=== PATIENT | female | born 1960 | race Caucasian/White ===

== ENCOUNTER → 2017-09-21 08:43 | Outpatient (CLI) | payer OTHER, SELFPAY ==
--- NOTE | 2017-09-21 08:59 | CT_ITS ---
STUDY: CT ABDOMEN AND PELVIS WITH CONTRAST REASON FOR EXAM: Female, 57 years old. Left lower quadrant pain. RADIATION DOSAGE (If Supplied By Facility): CTDIvol = ( 10.07 ) mGy, DLP = ( 417.20 ) mGycm TECHNIQUE: Transaxial images were obtained from the dome of the diaphragm to the symphysis pubis with oral contrast. 100ml ml of Isovue 300 contrast was administered. Sagittal and coronal images were reconstructed. Individualized dose optimization techniques were used for this CT. COMPARISON: None. FINDINGS: The visualized lung bases are unremarkable. The visualized portions of the heart are within normal limits. There is a 9.3 mm x 8.9 mm cyst in the anterior aspect of the right lobe of the liver. Normal gallbladder and extrahepatic biliary system. There is a 1.6 cm x 1.7 cm cystic nodule in the upper aspect of the spleen. Normal pancreas. Normal bilateral adrenal glands. 1 cm cyst in the lower pole of the right and left kidneys. There is a small hiatal hernia. Normal small intestine. There is diverticulosis, with thickening of the colon wall, and pericolonic inflammation changes consistent with acute diverticulitis. The appendix is visualized and appears normal. Normal abdominal aorta. Normal inferior vena cava. Normal retroperitoneum. Normal urinary bladder. Small bilateral benign-appearing inguinal lymph nodes. There is a small umbilical hernia containing fat. There are degenerative changes of the visualized lumbar spine. Levoscoliosis. CT/Abdomen/Pelvis WITH Contrast IMPRESSION: Mild degree of noncomplicated sigmoid diverticulitis. Hepatic and splenic cysts. Small cysts in the lower pole of the kidneys. Electronically Signed: German Martinez MD at 9:58 EDT Tel [phone], Service support ,
== END ==
PROVIDERS: Family Provider Family Medicine; PCP Family Medicine; Visit Provider Family Medicine
DX: K57.32 Diverticulitis of large intestine without perforation or abscess without bleeding (principal); K76.89 Other specified diseases of liver; D73.4 Cyst of spleen; N28.1 Cyst of kidney, acquired
CPT/HCPCS: 74177; Q9967

== ENCOUNTER → 2018-02-17 14:36 | Outpatient (CLI) | payer OTHER, SELFPAY ==
[2018-02-17 15:31] LABS: ALB/GLOB Ratio 1.1 RATIO (0.9-2.4); AST(SGOT) 32 U/L (15-37); Alanine Aminotransfer ALT/SGPT 52 U/L (13-56); Albumin, Serum 3.9 g/dL (3.2-5.0); Alkaline Phosphatase 97 U/L (45-117); Anion Gap 10 (5-15); BUN 16 mg/dL (7-18); BUN/Creat Ratio 18.9 RATIO (10-20); Chloride 106 mmol/L (98-107); Cholesterol 276 mg/dL (200); Creatinine, Serum 0.85 mg/dL (0.55-1.02); EST Glomerular Filtration Rate 74 mL/min (>60); Est Glom Filt Rate - Afr Amer 90 mL/min (>60); Globulin 3.6 g/dL (2.2-4.2); Glucose 83 mg/dL (74-106); High Density Lipoprotein 70 mg/dL; Magnesium 2.3 mg/dL (1.6-2.6); Potassium 4.2 mmol/L (3.5-5.1); Protein, Total 7.5 g/dL (6.4-8.2); Sodium Level 142 mmol/L (136-145); Thyroid Stim Hormone (TSH) 1.78 uIU/mL (0.358-3.74); Triglycerides 121 mg/dL; Very Low Density Lipoprotein 24 mg/dL (5-40)
[2018-02-17 15:37] LABS: Microalbumin,Random Urine 12.5 mg/L (NO RANGE EST.)
== END ==
PROVIDERS: Visit Provider Family Medicine
DX: E78.00 Pure hypercholesterolemia, unspecified (principal); I10 Essential (primary) hypertension
CPT/HCPCS: 36415; 80053; 80061; 82043; 82570; 83735; 84443

== ENCOUNTER 2018-04-28 08:36 | Day surgery (SDC) | payer OTHER, SELFPAY ==
[2018-04-28] VITALS (10 sets, daily range): BP systolic 127–177; BP diastolic 83–116; PULSE 81–99; RESP 16–18; TEMP 36.2–37.2; O2SAT 99–100; BMI 24.1
--- NOTE | 2018-04-28 09:39 | PCM.HP.STD ---
Problem List (1) Screening for intestinal cancer Status: Acute History of Present Illness Date of Admission: 04/28/18 The patient is a 58 year old F who presents for screening colonoscopy. Family history is notable for grandparent with colon cancer. She has had a personal history of colon polyps. Her most recent colonoscopy was 5 years ago. She did have about this past summer of severe left lower quadrant abdominal pain which was diagnosed as acute sigmoid diverticulitis and was treated with oral antibiotics. She currently denies bright red blood per rectum or melena. She otherwise is enjoying good health. Past Medical History Allergies adhesive tape Allergy (Verified 04/25/18 11:43) Rash Home Medications: Ambulatory Orders Medication Instructions Recorded Aspirin E.C. [Ecotrin] 81 mg PO DAILY@0800 04/25/18 Doxycycline 100 mg PO DAILY 04/25/18 Levothyroxine [Synthroid] 125 mcg PO DAILY 04/25/18 Magnesium Oxide [Magnesium] 800 mg PO DAILY 04/25/18 Spironolactone [Aldactone] 25 mg PO TID 04/25/18 Ranitidine [Zantac] 150 mg PO DAILY 04/28/18 Smoking Status: Never smoker Tobacco Use: Non-smoker Review of Systems Constitutional: Denies: Anorexia HEENT: Denies: Difficulty Swallowing Cardiovascular: Denies: Chest Pain Respiratory: Denies: Cough Gastrointestinal: Denies: Abdominal Pain Endocrine: Denies: Change in Body Habitus VTE Information - Inpt Only VTE Present on Admission: No Patient Problems: Active and Suspected Problems Screening for intestinal cancer (Acute) - Physical Exam General: Alert, Oriented x3, Cooperative Oral: Moist Mucosa Lungs: Clear to auscultation Cardiovascular: Regular rate, Regular Rhythm Abdomen: Bowel Sounds Present, Soft, Non Tender Musculoskeletal: No Tenderness to Palpation of Joints or Extremities Psych/Mental Status: Normal Affect Vital Signs Temp Pulse Resp BP Pulse Ox 98.9 F 81 16 138/90 H 100 04/28/18 09:11 04/28/18 09:11 04/28/18 09:11 04/28/18 09:11 04/28/18 09:11 Oxygen Delivery Method Room Air Weight: 132 lb Body Mass Index (BMI) 24.1 Assessment/Plan All Active Problems Screening for intestinal cancer (Acute) I am recommending to the patient a colonoscopy with possible biopsy or polypectomy as indicated. She is aware of the technique, benefits, risks, alternatives. She has had an opportunity to ask and have questions answered. She presents via open access. We will proceed as noted. Carlton Rebolledo M.D., F.A.C.S.
--- NOTE | 2018-04-28 10:06 | OP.ENDO_ITS ---
Patient Name: David Yanes Procedure Date: 04/28/2018 9:33 AM Date of : 1960 Age: 58 Procedure: Colonoscopy Indications: High risk colon cancer surveillance: Personal history of colonic polyps Providers: Carlton Rebolledo MD Referring MD: Carlton Rebolledo MD Medicines: Midazolam 3 mg IV, Meperidine 100 mg IV Patient Profile: Last Colonoscopy: 5 years ago. Complications: No immediate complications. Procedure: Pre-Anesthesia Assessment: - Prior to the procedure, a History and Physical was performed, and patient medications and allergies were reviewed. The patient's tolerance of previous anesthesia was also reviewed. The risks and benefits of the procedure and the sedation options and risks were discussed with the patient. All questions were answered, and informed consent was obtained. Prior Anticoagulants: The patient has taken no previous anticoagulant or antiplatelet agents. ASA Grade Assessment: II - A patient with mild systemic disease. After reviewing the risks and benefits, the patient was deemed in satisfactory condition to undergo the procedure. After I obtained informed consent, the scope was passed under direct vision. Throughout the procedure, the patient's blood pressure, pulse, and oxygen saturations were monitored continuously. The colonoscope was introduced through the anus and advanced to the cecum, identified by appendiceal orifice and ileocecal valve. The colonoscopy was performed without difficulty. The patient tolerated the procedure well. The quality of the bowel preparation was good. The ileocecal valve was photographed. Moderate Sedation: Moderate (conscious) sedation was personally administered by the endoscopist. The following parameters were monitored: oxygen saturation, heart rate, blood pressure, and response to care. Total physician intraservice time was 15 minutes. Scope In: 9:47:24 AM Scope Withdrawal Time 0 hours 9 minutes 21 seconds Scope Out: 10:01:38 AM Total Procedure Duration Time 0 hours 14 minutes 14 seconds Findings: Hemorrhoids were found on perianal exam. Many diverticula were found in the sigmoid colon and descending colon. The exam was otherwise without abnormality. Impression: - Hemorrhoids found on perianal exam. - Diverticulosis in the sigmoid colon and in the descending colon. - The examination was otherwise normal. - No specimens collected. Recommendation: - Discharge patient to home. - Resume previous diet. - Repeat colonoscopy in 5 years for surveillance. - Continue present medications. Procedure Code(s): --- Professional --- 42323, Colonoscopy, flexible; diagnostic, including collection of specimen(s) by brushing or washing, when performed (separate procedure) 78997, 59, Moderate sedation services provided by the same physician or other qualified health chronic care nurse performing the diagnostic or therapeutic service that the sedation supports, requiring the presence of an independent trained observer to assist in the monitoring of the patient's level of consciousness and physiological status; initial 15 minutes of intraservice time, patient age 5 years or older Diagnosis Code(s): --- Professional --- Z86.010, Personal history of colonic polyps K64.9, Unspecified hemorrhoids K57.30, Diverticulosis of large intestine without perforation or abscess without bleeding CPT copyright 2017 [employer]. All rights reserved. The codes documented in this report are preliminary and upon code and test clerk review may be revised to meet current compliance requirements. Carlton Rebolledo MD 04/28/2018 10:06:12 AM This report has been signed electronically. Number of Addenda: 0 Note Initiated On: 04/28/2018 9:33 AM
== END 2018-04-28 11:20 | disposition home or self-care (01) ==
LOC: EN 08:37 → AC 08:37
PROVIDERS: Family Provider Family Medicine; PCP Family Medicine; Referring Provider Surgery; Visit Provider Surgery
PROC: 0DJD8ZZ Inspection of Lower Intestinal Tract, Via Natural or Artificial Opening Endoscopic (ICD-10-PCS; CPT 45378; principal; 2018-04-28 09:40)
DX: Z12.11 Encounter for screening for malignant neoplasm of colon (principal); Z86.010 Personal history of colon polyps; K64.9 Unspecified hemorrhoids; K57.30 Diverticulosis of large intestine without perforation or abscess without bleeding
CPT/HCPCS: 45378; 99152; 99153; J7120

== ENCOUNTER → 2019-04-02 17:47 | Outpatient (CLI) | payer OTHER, SELFPAY ==
[2018-04-28 09:11] VITALS: BMI 24.1
== END ==
PROVIDERS: Family Provider Family Medicine; PCP Family Medicine; Referring Provider Family Medicine; Visit Provider Family Medicine
DX: R05 Cough (principal)
CPT/HCPCS: 87633

== ENCOUNTER → 2019-04-03 12:01 | Outpatient (CLI) | payer OTHER, SELFPAY ==
[2018-04-28 09:11] VITALS: BMI 24.1
== END ==
PROVIDERS: Family Provider Family Medicine; PCP Family Medicine; Referring Provider Family Medicine; Visit Provider Family Medicine
DX: R05 Cough (principal)
CPT/HCPCS: 87633

== ENCOUNTER → 2019-04-17 11:33 | Outpatient (CLI) | payer OTHER, SELFPAY ==
[2018-04-28 09:11] VITALS: BMI 24.1
[2019-04-17 13:58] LABS: Microalbumin,Random Urine 13.4 mg/L (NO RANGE EST.)
[2019-04-17 14:01] LABS: ALB/GLOB Ratio 0.8 RATIO (0.9-2.4); AST(SGOT) 24 U/L (15-37); Alanine Aminotransfer ALT/SGPT 43 U/L (13-56); Albumin, Serum 3.4 g/dL (3.2-5.0); Alkaline Phosphatase 93 U/L (45-117); Anion Gap 4 (5-15); BUN 14 mg/dL (7-18); BUN/Creat Ratio 17.6 RATIO (10-20); Calcium,Total 9.2 mg/dL (8.5-10.1); Chloride 107 mmol/L (98-107); Cholesterol 232 mg/dL (200); Creatinine, Serum 0.79 mg/dL (0.55-1.02); EST Glomerular Filtration Rate 79 mL/min (>60); Est Glom Filt Rate - Afr Amer 96 mL/min (>60); Globulin 4.4 g/dL (2.2-4.2); Glucose 94 mg/dL (74-106); High Density Lipoprotein 58 mg/dL; Potassium 4.1 mmol/L (3.5-5.1); Protein, Total 7.8 g/dL (6.4-8.2); Sodium Level 138 mmol/L (136-145); T4 Free Direct 1.43 ng/dL (0.76-1.46); Thyroid Stim Hormone (TSH) 0.82 uIU/mL (0.358-3.74); Triglycerides 197 mg/dL; Very Low Density Lipoprotein 39 mg/dL (5-40)
== END ==
PROVIDERS: Family Provider Family Medicine; PCP Family Medicine; Referring Provider Family Medicine; Visit Provider Family Medicine
DX: I10 Essential (primary) hypertension (principal); E03.9 Hypothyroidism, unspecified; E78.00 Pure hypercholesterolemia, unspecified
CPT/HCPCS: 36415; 80053; 80061; 82043; 82570; 84439; 84443

== ENCOUNTER → 2019-04-20 16:22 | Outpatient (CLI) | payer OTHER, SELFPAY ==
[2018-04-28 09:11] VITALS: BMI 24.1
--- NOTE | 2019-04-20 16:30 | RAD_ITS ---
STUDY: X-RAY CHEST REASON FOR EXAM: Female, 59 years old. Cough TECHNIQUE: Frontal and lateral views of the chest. COMPARISON: None. FINDINGS: The lungs are clear and expanded. There is no demonstrated pleural abnormality. Normal size heart. Normal mediastinum and christy. Normal visualized pulmonary arteries. Normal visualized aortic arch and descending thoracic aorta. Normal visualized thoracic spine. Normal visualized ribs, clavicles, and shoulders. There is no demonstrated abnormality of the visualized soft tissue structures of the upper abdomen. RAD/Chest PA and Lateral IMPRESSION: Normal x-ray examination of the chest. Electronically Signed: Keaton De León MD at 23:54 EST , Service support ,
== END ==
PROVIDERS: PCP Family Medicine; Referring Provider Family Medicine; Visit Provider Family Medicine
DX: R05 Cough (principal)
CPT/HCPCS: 71046

== ENCOUNTER → 2020-02-01 15:24 | Outpatient (CLI) | payer OTHER, SELFPAY ==
[2018-04-28 09:11] VITALS: BMI 24.1
== END ==
PROVIDERS: PCP Family Medicine; Referring Provider Family Medicine; Visit Provider Registered Nurse
DX: R30.0 Dysuria (principal)
CPT/HCPCS: 87077; 87086; 87088; 87186

== ENCOUNTER → 2020-03-13 14:53 | Outpatient (CLI) | payer OTHER, SELFPAY ==
[2018-04-28 09:11] VITALS: BMI 24.1
[2020-03-13 17:52] LABS: Microalbumin:Creatinine Ratio 4.4 mg/g CRE (<30 mg/g CRE)
[2020-03-13 17:54] LABS: Vitamin D,25 Hydroxy 26.4 ng/mL
[2020-03-13 18:08] LABS: ALB/GLOB Ratio 0.9 RATIO (0.9-2.4); AST(SGOT) 30 U/L (15-37); Alanine Aminotransfer ALT/SGPT 46 U/L (13-56); Albumin, Serum 3.8 g/dL (3.2-5.0); Alkaline Phosphatase 111 U/L (45-117); Anion Gap 6 (5-15); BUN 19 mg/dL (7-18); BUN/Creat Ratio 21.6 RATIO (10-20); Calcium,Total 9.1 mg/dL (8.5-10.1); Chloride 103 mmol/L (98-107); Creatinine, Serum 0.88 mg/dL (0.55-1.02); EST Glomerular Filtration Rate 70 mL/min (>60); Est Glom Filt Rate - Afr Amer 85 mL/min (>60); Globulin 4.2 g/dL (2.2-4.2); Glucose 90 mg/dL (74-106); Magnesium 2.2 mg/dL (1.6-2.6); Potassium 3.9 mmol/L (3.5-5.1); Sodium Level 137 mmol/L (136-145); Thyroid Stim Hormone (TSH) 2.31 uIU/mL (0.358-3.74)
== END ==
PROVIDERS: PCP Family Medicine; Referring Provider Family Medicine; Visit Provider Family Medicine
DX: I10 Essential (primary) hypertension (principal); E03.9 Hypothyroidism, unspecified; E26.09 Other primary hyperaldosteronism
CPT/HCPCS: 36415; 80053; 82043; 82306; 82570; 83735; 84443

== ENCOUNTER → 2020-08-27 10:31 | Outpatient (CLI) | payer OTHER, SELFPAY ==
[2018-04-28 09:11] VITALS: BMI 24.1
[2020-08-27 12:34] LABS: Anion Gap 2 (5-15); BUN 14 mg/dL (7-18); BUN/Creat Ratio 16.7 RATIO (10-20); Calcium,Total 9.1 mg/dL (8.5-10.1); Chloride 107 mmol/L (98-107); Creatinine, Serum 0.84 mg/dL (0.55-1.02); EST Glomerular Filtration Rate 74 mL/min (>60); Est Glom Filt Rate - Afr Amer 89 mL/min (>60); Glucose 94 mg/dL (74-106); Magnesium 2.4 mg/dL (1.6-2.6); Potassium 3.9 mmol/L (3.5-5.1); Sodium Level 137 mmol/L (136-145); Thyroid Stim Hormone (TSH) 2.47 uIU/mL (0.358-3.74)
[2020-08-27 12:43] LABS: Hemoglobin A1c 5.5 % (3.8-5.6)
[2020-08-27 13:19] LABS: Microalbumin:Creatinine Ratio 7.1 mg/g CRE (<30 mg/g CRE)
== END ==
PROVIDERS: PCP Family Medicine; Referring Provider Family Medicine; Visit Provider Family Medicine
DX: R73.02 Impaired glucose tolerance (oral) (principal); I10 Essential (primary) hypertension; E03.9 Hypothyroidism, unspecified
CPT/HCPCS: 36415; 80048; 82043; 82570; 83036; 83735; 84443

== ENCOUNTER → 2020-10-14 13:32 | Outpatient (CLI) | payer OTHER, SELFPAY ==
[2018-04-28 09:11] VITALS: BMI 24.1
== END ==
LOC: LABSPEC 13:32
PROVIDERS: PCP Family Medicine; Referring Provider Family Medicine; Visit Provider Family Medicine
DX: N39.0 Urinary tract infection, site not specified (principal)
CPT/HCPCS: 87077; 87086; 87088; 87186

== ENCOUNTER 2021-04-06 16:44 | Outpatient (CLI) | payer OTHER, SELFPAY | END 2021-04-06 23:59 | disposition short-term general hospital (02) | LOC: LABSPEC 16:45 | PROVIDERS: PCP Family Medicine; Visit Provider Nurse Practitioner Family | DX: N39.0 Urinary tract infection, site not specified (principal) | CPT/HCPCS: 87077; 87086; 87088; 87186 ==

== ENCOUNTER 2021-05-05 13:49 | Outpatient (CLI) | payer OTHER, SELFPAY ==
[2021-05-08 14:03] LABS: H. PYLORI STOOL AG Negative (Negative)
== END 2021-05-05 23:59 | disposition short-term general hospital (02) ==
LOC: LABSPEC 13:52
PROVIDERS: PCP Family Medicine; Visit Provider Family Medicine
DX: Z00.00 Encounter for general adult medical examination without abnormal findings (principal)

== ENCOUNTER → 2021-07-21 | Outpatient (CLI) | payer OTHER, SELFPAY ==
[2021-07-21 15:07] LABS: Absolute Lymphocyte Count 1.07 X10^3/uL (0.83-4.51); Absolute Neutrophil Count 3.2 X10^3/uL (2.0-7.7); Basophil# 0.03 X10^3/uL; Basophil% 0.6 % (0-1); Eosinophils% 2.1 % (0-5); Hemoglobin 10.8 g/dL (12.0-15.0); Lymphocyte # 1.07 X10^3/ul (0.83-4.51); Lymphocyte % 22.3 % (19-41); Mean Corpuscular Hgb 21.8 pg (27.0-32.0); Mean Corpuscular Volume 72.6 fL (81-99); Mean Platelet Vol. 9.5 fl (6.2-12.0); Monocyte# 0.38 X10^3/uL; Monocyte% 7.9 % (0-10); NRBC Flagged by Analyzer 0 % (0-5); Neutrophil # 3.21 X10^3/uL (2.7-7.7); Neutrophil % 66.9 % (47-70); Platelet Count 442 K/mm3 (150-450); RBC Distribution Width CV 17.6 % (11.6-14.6); RBC Distribution Width SD 45.8 fl (35.1-43.9); Red Blood Count 4.96 M/mm3 (4.2-5.4); White Blood Count 4.8 K/mm3 (4.4-11.0)
[2021-07-21 15:58] LABS: ALB/GLOB Ratio 0.9 RATIO (0.9-2.4); AST(SGOT) 25 U/L (15-37); Alanine Aminotransfer ALT/SGPT 49 U/L (13-56); Alkaline Phosphatase 107 U/L (45-117); Anion Gap 8 (5-15); BUN 15 mg/dL (7-18); BUN/Creat Ratio 16.9 RATIO (10-20); Calcium,Total 9.1 mg/dL (8.5-10.1); Chloride 105 mmol/L (98-107); Cholesterol 238 mg/dL (200); Creatinine, Serum 0.88 mg/dL (0.55-1.02); EST Glomerular Filtration Rate 69 mL/min (>60); Est Glom Filt Rate - Afr Amer 84 mL/min (>60); Globulin 4.5 g/dL (2.2-4.2); Glucose 96 mg/dL (74-106); High Density Lipoprotein 61 mg/dL; Magnesium 2.5 mg/dL (1.6-2.6); Potassium 4.2 mmol/L (3.5-5.1); Protein, Total 8.5 g/dL (6.4-8.2); Sodium Level 138 mmol/L (136-145); Thyroid Stim Hormone (TSH) 0.52 uIU/mL (0.358-3.74); Triglycerides 147 mg/dL; Very Low Density Lipoprotein 29 mg/dL (5-40)
[2021-07-21 16:02] LABS: Microalbumin,Random Urine 14.7 mg/L (NO RANGE EST.); Microalbumin:Creatinine Ratio 7.5 mg/g CRE (<30 mg/g CRE)
[2021-07-23 12:52] LABS: Ferritin 11 ng/mL (8-252); Iron 30 ug/dL (50-170); Iron Binding Capacity,Total 496 ug/dL (250-450)
== END | disposition home or self-care (01) ==
LOC: MFPLAB 11:34
PROVIDERS: PCP Family Medicine; Visit Provider Family Medicine
DX: E61.1 Iron deficiency (principal); K21.9 Gastro-esophageal reflux disease without esophagitis; E03.9 Hypothyroidism, unspecified; E78.00 Pure hypercholesterolemia, unspecified
CPT/HCPCS: 36415; 80053; 80061; 82043; 82570; 82728; 83540; 83550; 83735; 84443; 85025

== ENCOUNTER → 2021-08-05 | Outpatient (CLI) | payer OTHER, SELFPAY ==
[2021-08-05 12:57] LABS: Ferritin 9 ng/mL (8-252); Iron 27 ug/dL (50-170); Iron Binding Capacity,Total 453 ug/dL (250-450)
== END | disposition home or self-care (01) ==
LOC: MTLAB 10:18
PROVIDERS: PCP Family Medicine; Referring Provider Family Medicine; Visit Provider Family Medicine
DX: E61.1 Iron deficiency (principal)
CPT/HCPCS: 36415; 82728; 83540; 83550

== ENCOUNTER → 2022-06-11 | Outpatient (CLI) | payer OTHER, SELFPAY ==
[2022-06-11 12:55] LABS: AST(SGOT) 26 U/L (15-37); Alanine Aminotransfer ALT/SGPT 47 U/L (13-56); Albumin, Serum 3.8 g/dL (3.2-5.0); Alkaline Phosphatase 83 U/L (45-117); Anion Gap 6 (5-15); BUN 21 mg/dL (7-18); BUN/Creat Ratio 25.8 RATIO (10-20); Calcium,Total 9.4 mg/dL (8.5-10.1); Chloride 105 mmol/L (98-107); Cholesterol 256 mg/dL (200); Creatinine, Serum 0.82 mg/dL (0.55-1.02); EST Glomerular Filtration Rate 76 mL/min (>60); Est Glom Filt Rate - Afr Amer 92 mL/min (>60); Ferritin 160 ng/mL (8-252); Globulin 3.8 g/dL (2.2-4.2); Glucose 103 mg/dL (74-106); High Density Lipoprotein 65 mg/dL; Potassium 4.3 mmol/L (3.5-5.1); Protein, Total 7.6 g/dL (6.4-8.2); Sodium Level 138 mmol/L (136-145); Thyroid Stim Hormone (TSH) 3.91 uIU/mL (0.358-3.74); Triglycerides 150 mg/dL; Very Low Density Lipoprotein 30 mg/dL (5-40)
[2022-06-11 13:21] LABS: Microalbumin,Random Urine 11.3 mg/L (NO RANGE EST.); Microalbumin:Creatinine Ratio 7.8 mg/g CRE (<30 mg/g CRE)
== END | disposition home or self-care (01) ==
LOC: MFPLAB 10:22
PROVIDERS: PCP Family Medicine; Referring Provider Family Medicine; Visit Provider Family Medicine
DX: Z00.00 Encounter for general adult medical examination without abnormal findings (principal); E26.09 Other primary hyperaldosteronism; I10 Essential (primary) hypertension; E61.1 Iron deficiency; E03.9 Hypothyroidism, unspecified
CPT/HCPCS: 36415; 80053; 80061; 82043; 82570; 82728; 84443

== ENCOUNTER → 2022-11-25 | Outpatient (CLI) | payer OTHER, SELFPAY ==
[2022-11-25 12:54] LABS: Cholesterol 237 mg/dL (200); High Density Lipoprotein 73 mg/dL; T4 Free Direct 1.31 ng/dL (0.76-1.46); Thyroid Stim Hormone (TSH) 6.69 uIU/mL (0.358-3.74); Triglycerides 91 mg/dL; Very Low Density Lipoprotein 18 mg/dL (5-40)
[2022-11-25 16:32] LABS: Free T3 2.4 pg/mL (2.18-3.98)
== END | disposition home or self-care (01) ==
LOC: MFPLAB 10:37
PROVIDERS: PCP Family Medicine; Visit Provider Family Medicine
DX: E78.00 Pure hypercholesterolemia, unspecified (principal); E03.9 Hypothyroidism, unspecified
CPT/HCPCS: 36415; 80061; 84439; 84443; 84481

== ENCOUNTER → 2023-01-31 | Outpatient (CLI) | payer OTHER, SELFPAY ==
[2023-01-31 12:37] LABS: Free T3 2.6 pg/mL (2.18-3.98); T4 Free Direct 1.17 ng/dL (0.76-1.46); Thyroid Stim Hormone (TSH) 8.45 uIU/mL (0.358-3.74)
== END | disposition home or self-care (01) ==
LOC: MFPLAB 09:53
PROVIDERS: PCP Family Medicine; Visit Provider Family Medicine
DX: E03.9 Hypothyroidism, unspecified (principal)
CPT/HCPCS: 36415; 84439; 84443; 84481

== ENCOUNTER 2023-02-07 18:33 | Emergency (ER) | payer OTHER, SELFPAY ==
[2023-02-07 18:36] VITALS: BP 171/86; PULSE 112; RESP 18; TEMP 36.6; O2SAT 98; BMI 23.6
--- NOTE | 2023-02-07 19:28 | EX.ED.VIS.PS ---
HPI <ITZ Beck - Last Filed: 02/07/23 20:36> HPI - Psych History of Present Illness Chief Complaint: Mental Health Narrative Narrative: Patient presenting today due to depression that she has been suffering with since December. She reports that she had a blepharoplasty performed due to her eyelids drooping into her eyes affecting her vision, she thinks that the surgeon took too much of her skin off because she had a difficult time closing her right eye completely. She reports that she does not feel like herself and rarely recognizes herself anymore. She has been having panic attacks for the past 3 days. She has seen her PCP for this, she was prescribed lorazepam to use as needed and was given 2 weeks worth, she reports that she has used this medication very sparingly and still has several pills left. She has not used it since Tuesday. She just started Lexapro today. She denies any thoughts of self-harm, suicidal thoughts, homicidal thoughts, tactile/visual/auditory hallucinations, and substance use. PFSH <ITZ Beck - Last Filed: 02/07/23 20:36> [facility] Medical History (Updated 02/07/23 @ 20:30 by Dang Willoughby) Anxiety Hypertension Hypothyroidism Home Medications aspirin 81 mg tablet,delayed release 81 mg PO DAILY@0800 04/25/18 [History Last Taken Unknown] doxycycline monohydrate 100 mg capsule 100 mg PO DAILY 04/25/18 [History Last Taken Unknown] levothyroxine 125 mcg tablet 125 mcg PO DAILY 04/25/18 [History Last Taken Unknown] magnesium oxide 800 mg PO DAILY 04/25/18 [History Last Taken Unknown] spironolactone 25 mg tablet 25 mg PO TID 04/25/18 [History Last Taken Unknown] Ranitidine [Zantac] 150 mg PO DAILY 04/28/18 [History Last Taken 04/28/18 08:00] lorazepam 0.5 mg tablet 0.5 mg PO Q12H PANIC ATTACK 02/07/23 [History Last Taken Unknown] Allergy/AdvReac Type Severity Reaction Status Date / Time adhesive tape Allergy Rash Verified 02/07/23 18:35 Family History other Social History Smoking Status: Never smoker ROS <ITZ Beck - Last Filed: 02/07/23 20:36> ROS ED Constitutional Constitutional ED: Denies chills or fever(s) Cardiovascular Cardiovascular: Denies chest pain Respiratory/Chest Respiratory/Chest: Denies cough or dyspnea Gastrointestinal Gastrointestinal: Denies abdominal pain, nausea or vomiting Genitourinary Genitourinary ED: Denies dysuria, hematuria or urinary urgency Musculoskeletal Musculoskeletal: Denies arthralgias or myalgias Integumentary Denies rash Neurologic Neurologic: Denies weakness Psychiatric Psychiatric: Reports anxiety, depression and panic attacks; Denies hallucinations, homicidal ideation, suicidal ideation or suicidal thoughts EXAM <ITZ Beck - Last Filed: 02/07/23 20:36> Physical Exam Const Vital Signs: 02/07/23 18:36 02/07/23 22:35 Temperature 97.9 F Temperature Source Temporal Pulse Rate 112 H 90 Respiratory Rate 18 16 Blood Pressure 171/86 H 125/75 H Blood Pressure Mean 114 91 Pulse Ox 98 99 Oxygen Delivery Method Room Air Room Air Positive well nourished, well developed and no apparent distress General Appearance ED: well developed HEENT Reports normocephalic and head/scalp atraumatic Mouth ED: Yes moist mucous membranes normal Eyes PERRL and EOMs intact bilaterally Neck full ROM and supple Chest Wall inspection of chest normal Resp normal respiratory effort and clear to auscultation bilaterally Cardio regular rate and regular rhythm GI soft to palpation, non-tender, non-distended and no masses Back/Spine normal ROM and normal to inspection Extremity normal to inspection and full ROM Neuro oriented x3, CN's II-XII intact bilaterally, moves all extremities, no focal motor deficits and no sensory deficits noted Sensorium / Orientation: awake and alert Psych mental status grossly normal, thought process normal, cooperative and speech normal Appearance: grossly normal Mood & Affect: depressed, sad and tearful Thought Content: No suicidality, No homicidality, No phobia(s) and No delusion(s) Skin no rashes or lesions noted and no wounds <Dr. Ozzy Monique DO - Last Filed: 02/07/23 23:40> Physical Exam Const Vital Signs: 02/07/23 18:36 02/07/23 22:35 Temperature 97.9 F Temperature Source Temporal Pulse Rate 112 H 90 Respiratory Rate 18 16 Blood Pressure 171/86 H 125/75 H Blood Pressure Mean 114 91 Pulse Ox 98 99 Oxygen Delivery Method Room Air Room Air MDM <ITZ Beck - Last Filed: 02/07/23 20:36> [facility] Narrative Medical decision making narrative: Patient presenting due to depression that she has been struggling with since December after receiving a blepharoplasty. She reports that she is unhappy with the surgery and does not recognize herself anymore. She has seen her PCP for this, they did give her a short-term prescription of Ativan which she has been using very sparingly, she just started taking Lexapro today. She denies any thoughts of self-harm, suicide, homicide, hallucinations. Patient is tearful and has broke out in hysterical bouts of crying several times while I was speaking with her. Patient will be given Ativan, I will have crisis come and evaluate her. Crisis is requesting that labs to be obtained prior to them evaluating patient. Work-up is pending. Lab Data Attestation: I reviewed the patient's lab results. Labs: Laboratory Results - last 24 hr 02/07/23 19:54 WBC 6.5 RBC 4.97 Hgb 15.7 H Hct 46.4 MCV 93.4 MCH 31.6 MCHC 33.8 RDW Std Deviation 40.9 RDW Coeff of Saira 11.9 Plt Count 275 MPV 9.2 Immature Gran % (Auto) 0.300 Neut % (Auto) 70.4 H Lymph % (Auto) 18.9 L Florence % (Auto) 9.2 Eos % (Auto) 0.6 Baso % (Auto) 0.6 Absolute Neuts (auto) 4.6 Absolute Lymphs (auto) 1.23 Nucleated RBC % 0 Sodium 139 Potassium 3.7 Chloride 106 Carbon Dioxide 25.0 Anion Gap 8 BUN 9 Creatinine 0.69 Estim Creat Clear Calc 68.57 Est GFR (MDRD) Af Amer 111 Est GFR (MDRD) Non-Af 92 BUN/Creatinine Ratio 13.0 Glucose 102 Calcium 9.9 Urine Opiates Screen NEGATIVE Urine Methadone Screen NEGATIVE Ur Barbiturates Screen NEGATIVE Ur Phencyclidine Scrn NEGATIVE Ur Amphetamines Screen NEGATIVE MDMA (Ecstasy) Screen NEGATIVE U Benzodiazepines Scrn NEGATIVE Urine Cocaine Screen NEGATIVE U Cannabinoids Screen NEGATIVE Ur Drug Screen Comment Ethyl Alcohol < 3.0 <Dr. zOzy Monique, DO - Last Filed: 02/07/23 23:40> MDM Lab Data Labs: Laboratory Results - last 24 hr 02/07/23 19:54 WBC 6.5 RBC 4.97 Hgb 15.7 H Hct 46.4 MCV 93.4 MCH 31.6 MCHC 33.8 RDW Std Deviation 40.9 RDW Coeff of Saira 11.9 Plt Count 275 MPV 9.2 Immature Gran % (Auto) 0.300 Neut % (Auto) 70.4 H Lymph % (Auto) 18.9 L Florence % (Auto) 9.2 Eos % (Auto) 0.6 Baso % (Auto) 0.6 Absolute Neuts (auto) 4.6 Absolute Lymphs (auto) 1.23 Nucleated RBC % 0 Sodium 139 Potassium 3.7 Chloride 106 Carbon Dioxide 25.0 Anion Gap 8 BUN 9 Creatinine 0.69 Estim Creat Clear Calc 68.57 Est GFR (MDRD) Af Amer 111 Est GFR (MDRD) Non-Af 92 BUN/Creatinine Ratio 13.0 Glucose 102 Calcium 9.9 Urine Opiates Screen NEGATIVE Urine Methadone Screen NEGATIVE Ur Barbiturates Screen NEGATIVE Ur Phencyclidine Scrn NEGATIVE Ur Amphetamines Screen NEGATIVE MDMA (Ecstasy) Screen NEGATIVE U Benzodiazepines Scrn NEGATIVE Urine Cocaine Screen NEGATIVE U Cannabinoids Screen NEGATIVE Ur Drug Screen Comment Ethyl Alcohol < 3.0 Treatment and Re-Evaluation Narrative: I have personally performed a face to face assessment of the patient and have reviewed the FOREIGN Note. I performed a substantive portion of the visit including all aspects of the following. My gordillo findings include: History: Patient presents with depression and anxiety that has been getting worse over the past several months. Patient states she had a recent blepharoplasty and since that time she has been more depressed because her eyes do not look right anymore. Patient states she does not like the way she looks. Patient denies any suicidal or homicidal ideations. Patient states she has not been eating or sleeping very well. Patient states that her primary care physician started her on mirtazapine but she is no longer taking that because she did not think it was helping. Patient was started on Lexapro and took her first dose today. Patient also was given a prescription for a short-term course of Ativan. Patient states that she only takes that sparingly. Exam: Vital signs are stable. Patient is afebrile. Patient is in no acute distress. Patient is anxious and tearful on examination. Oral mucosa is pink and moist. Neck is supple. Trachea is midline. There is no JVD. Heart was regular rate and rhythm. Lungs are clear and equal bilaterally. Abdomen is soft. Bowel sounds are normal. There is no tenderness. Cranial nerves II through XII are intact. There are no focal motor or sensory deficits noted. Patient denies any suicidal or homicidal ideations. Medical Decision Making: Medical screening labs will be obtained prior to evaluation by crisis counselor. CBC will be obtained to assess for leukocytosis and anemia. Basic metabolic profile will be obtained to assess for electrolyte abnormality and renal function. Serum alcohol level will be obtained to assess for alcohol intoxication. Urine drug screen will be obtained to assess for substance abuse. Patient was given a dose of Ativan here. CBC was reviewed and was within normal limits. Basic metabolic profile was reviewed and was within normal limits. Urine tox screen was reviewed and was negative. Serum alcohol level was reviewed and was less than 3.0. Case was discussed with crisis general counsel. She was in to evaluate the patient. Care of the patient will be turned over to the oncoming physician pending crisis evaluation. Discharge Plan Triage Chief Complaint: Mental Health ED Midlevel Provider: Laura Baron ED Provider: Ozzy Monique Dx/Rx/DC Orders Prescriptions: No Action aspirin 81 MG tablet 81 mg PO DAILY@0800 spironolactone 25 MG tablet 25 mg PO TID doxycycline monohydrate 100 MG capsule 100 mg PO DAILY levothyroxine 125 MCG tablet 125 mcg PO DAILY magnesium oxide 400 MG capsule 800 mg PO DAILY Ranitidine [Zantac] 150 MG tablet 150 mg PO DAILY lorazepam 0.5 mg tablet 0.5 mg PO Q12H Patient Comments: TAKE 1/2 TO 1 TABLET BY MOUTH 2 TIMES A DAY NEEDED FOR PANIC ATTACK PREVENTION Primary Care Provider: Ozzy Willoughby Referrals: Ozzy Willoughby MD [Primary Care Provider] -
[2023-02-07] MEDS: LORazepam 1 MG Tablet PO (19:53)
[2023-02-07 20:13] LABS: Absolute Lymphocyte Count 1.23 X10^3/uL (0.83-4.51); Absolute Neutrophil Count 4.6 X10^3/uL (2.0-7.7); Basophil# 0.04 X10^3/uL; Basophil% 0.6 % (0-1); Eosinophil# 0.04 X10^3/uL; Eosinophils% 0.6 % (0-5); Hematocrit 46.4 % (37-47); Hemoglobin 15.7 g/dL (12.0-15.0); Lymphocyte # 1.23 X10^3/ul (0.83-4.51); Lymphocyte % 18.9 % (19-41); Mean Corp Hgb Conc 33.8 g/dL (32-36); Mean Corpuscular Hgb 31.6 pg (27.0-32.0); Mean Corpuscular Volume 93.4 fL (81-99); Mean Platelet Vol. 9.2 fl (6.2-12.0); Monocyte% 9.2 % (0-10); NRBC Flagged by Analyzer 0 % (0-5); Neutrophil # 4.59 X10^3/uL (2.7-7.7); Neutrophil % 70.4 % (47-70); Platelet Count 275 K/mm3 (150-450); RBC Distribution Width CV 11.9 % (11.6-14.6); RBC Distribution Width SD 40.9 fl (35.1-43.9); Red Blood Count 4.97 M/mm3 (4.2-5.4); White Blood Count 6.5 K/mm3 (4.4-11.0)
[2023-02-07 20:31] LABS: Anion Gap 8 (5-15); BUN 9 mg/dL (7-18); Calcium,Total 9.9 mg/dL (8.5-10.1); Chloride 106 mmol/L (98-107); Creatinine, Serum 0.69 mg/dL (0.55-1.02); EST Glomerular Filtration Rate 92 mL/min (>60); Est Glom Filt Rate - Afr Amer 111 mL/min (>60); Estimated Creatinine Clearance 68.57 ml/min; Glucose 102 mg/dL (74-106); Potassium 3.7 mmol/L (3.5-5.1); Sodium Level 139 mmol/L (136-145)
[2023-02-07 20:36] LABS: Alcohol, Blood (Medical)-Serum < 3.0 mg/dL; Amphetamine Urine VISTA NEGATIVE (<1000 ng/mL); Barbiturate Urine VISTA NEGATIVE (< 200 ng/mL); Benzodiazepine Urine VISTA NEGATIVE (< 200 ng/mL); Cocaine Urine VISTA NEGATIVE (< 300 ng/mL); Ecstacy Urine VISTA NEGATIVE (< 500 ng/mL); Methadone Urine VISTA NEGATIVE (< 300 ng/mL); PCP Urine VISTA NEGATIVE (< 25 ng/mL); THC Urine VISTA NEGATIVE (< 50 ng/mL); Vista UDS pH Range 5
[2023-02-07 22:35] VITALS: BP 125/75; PULSE 90; RESP 16; O2SAT 99
== END 2023-02-08 00:31 | disposition home or self-care (01) ==
PROVIDERS: Physician Assistant; Emergency Provider Emergency Medicine; PCP Family Medicine; Visit Provider Emergency Medicine
DX: F32.A Depression, unspecified (principal); Z79.899 Other long term (current) drug therapy
CPT/HCPCS: 80048; 80307; 82077; 85025; 99284

== ENCOUNTER → 2023-04-21 | Outpatient (CLI) | payer OTHER, SELFPAY ==
--- OUTSIDE RECORDS SUMMARY | 2023-04-21 11:46 | XMS RPT_ITS | CCD ---
Author Name Unknown Address [address] [address] [place] [address] Organization [facility] Care Team Providers Care Process Automation Engineer Name Role Phone Marlon Willoughby MD Primary Care Provider MARLON WILLOUGHBY Primary Care Unavailable KATRINA KENDRICK Referring Unavailable KATRINA KENDRICK Referring Unavailable MARLON WILLOUGHBY Primary Care Unavailable KATRINA KENDRICK Referring Unavailable MARLON WILLOUGHBY Primary Care Unavailable Allergies Allergy Classification Reported Allergen(s) Allergy Type Date of Onset Reaction(s) Facility (10 sources) Adhesive Tape; Translations: [ADHESIVE TAPE (ROSINS)] Propensity to adverse reactions 01-05-2005 [facility] Work Phone: Medications Completed/Discontinued Medications Medication Drug Class(es) Dates Sig (Normalized) Sig (Original) aspirin 81 mg oral tablet (9 sources) Platelet Aggregation Inhibitor, Nonsteroidal Anti-inflammatory Drug Start: 01-05-2005 ASPIRIN 81 MG TAB Take one (1) tablet daily . 0 01/05/2005 Active Problems Problem Classification Problem Date Documented Da te Episodic/Chronic Complications of surgical procedures or medical care (9 sources) Postablative hypothyroidism; Translations: [Postprocedural hypothyroidism] Onset: 11-18-2005 11-18-2005 Chronic Other screening for suspected conditions (not mental disorders or infectious disease) (20 sources) Mammography abnormal; Translations: [Other abnormal and inconclusive findings on diagnostic imaging of breast] Onset: 09-12-2014 Episodic Unclassified (1 source) Dense breasts; Translations: [Dense breasts] Onset: 03-15-2023 Results Test Name Value Interpretation Reference Range Facil ity Vital Signs Date Time Vital Sign Value Performing Clinician Faci lity 02-19-2022 14:04-0500 Body height 157.5 cm Katrina Kendrick MD Work Phone: [facility] 02-19-2022 14:04-0500 Body weight 60.51 kg Katrina Kendrick MD Work Phone: [facility] 02-19-2022 14:04-0500 Diastolic blood pressure 82 mm[Hg] Katrina Kendrick MD Work Phone: [facility] 02-19-2022 14:04-0500 Systolic blood pressure 124 mm[Hg] Katrina Kendrick MD Work Phone: [facility] Encounters Encounter Date Encounter Type Care Provider Facility Start: 04-12-2023 Telephone encounter Katrina velasquez MD Work Phone: OB/Gynecology Procedures Date Procedure Procedure Detail Performing Clinician Start: 03-15-2023 Screening digital br east tomosynthesis bi Katrina Kendrick MD Work Phone: Start: 02-10-2022 VERÓNICA DIAG W JUANA LEFT Re nee [place] TELEPHONE CLERK.CEMENTER HELPER Work Phone: Start: 01-07-2022 Mammography Rosalind [facility] TELEPHONE CLERK.CEMENTER HELPER Work Phone: Start: 10-02-2014 Colonoscopy Rosalind [facility] TELEPHONE CLERK.CEMENTER HELPER Work Phone: Start: 08-02-2010 Lipid 1996 panel - S junito or Plasma Diagnostic Wstr Plan of Treatment Date Care Activity Detail Author Start: 02-19-2029 Urine microalbumin profile DTaP,Tdap,Td Vaccine (2 - Td or Tdap) [facility] Start: 01-20-2026 HPV TESTING HPV TESTING [facility] Start: 01-20-2026 PAP TESTING PAP TESTING [facility] Start: 01-20-2026 Screening for malignant neoplasm of cervix [facility] Start: 03-15-2024 Screening for malignant neoplasm of breast Mammogram Screening [facility] Start: 04-04-2023 Depression Assessment Depression Assessment [facility] Start: 01-07-2023 Mammography [facility] Start: 12-03-2022 Covid-19 Vaccine () Covid-19 Vaccine () [facility] Start: 12-03-2022 Influenza vaccination Influenza Vaccine (#1) [facility] Start: 04-04-2022 Depression Assessment Depression Assessment [facility] Start: 2022 RSV Vaccine (1 - 1-dose 60+ series) RSV Vaccine (1 - 1-dose 60+ series) [facility] Start: 12-03-2021 Influenza vaccination INFLUENZA (#1) [facility] Start: 04-04-2021 DEPRESSION ASSESSMENT DEPRESSION ASSESSMENT [facility] Start: 10-03-2015 Colonoscopy COLONOSCOPY [facility] Start: 10-03-2015 COLORECTAL CANCER SCREENING COLORECTAL CANCER SCREENING [facility] Start: 10-03-2015 Screening for malignant neoplasm of colon [facility] Start: 08-03-2015 Lipid 1996 panel - Serum or Plasma Lipid Screening [facility] Start: 08-03-2015 Lipid panel Lipid Screening [facility] Start: 08-03-2015 LIPID SCREEN LIPID SCREEN [facility] Start: 02-19-2012 SHINGRIX VACCINE (1 of 2) SHINGRIX VACCINE (1 of 2) [facility] Start: 2007 COLOGUARD (FIT-DNA) COLOGUARD (FIT-DNA) [facility] Start: [address] COLONOGRAPHY [facility] Start: 2007 DIABETES SCREEN DIABETES SCREEN [facility] Start: 2007 Diabetes Screening Diabetes Screening [facility] Start: 2007 FECAL OCCULT BLOOD FECAL OCCULT BLOOD [facility] Start: 2007 Screening for malignant neoplasm of colon [facility] Start: 2007 SIGMOIDOSCOPY SIGMOIDOSCOPY [facility] Start: 1981 Urine microalbumin profile DTAP,TDAP,TD (1 - Tdap) [facility] Start: 02-19-1980 ANNUAL PCP TEAM CHRONIC DISEASE VISIT ANNUAL PCP TEAM CHRONIC DISEASE VISIT [facility] Start: 02-19-1980 HEPATITIS C SCREENING HEPATITIS C SCREENING [facility] Start: 02-19-1980 Hepatitis C screening Hepatitis C Screening [facility] Start: 02-19-1980 HIV SCREENING HIV SCREENING [facility] Start: 02-19-1980 HIV screening HIV Screening [facility] Start: 1960 COVID-19 VACCINE (#1) COVID-19 VACCINE (#1) [facility] End: 02-07-2023 Diagnostic mammography computer-aided detcj uni VERÓNICA DIAGNOSTIC LT Radiology Routine Abnormal mammogram 1 Occurrences starting 01/08/2022 until 02/07/2023 [facility] Work Phone: Payers Date Payer Category Payer Unknown [id number] 2018 Unknown [id number] Social History Date Type Detail Facility Start: 05-17-2011 End: 02-19-2022 Tobacco smoking status NHIS Never smoked tobacco [facility] Start: 05-17-2011 End: 02-19-2022 Tobacco use and exposure Smokeless tobacco non-user [facility] Start: 01-20-2021 End: 02-19-2022 Alcohol intake Current drinker of alcohol (finding) [facility] Start: 1960 Sex Assigned At Female C [facility] Start: 12-06-2021 End: 02-10-2022 Exposure to SARS-CoV-2 (event) Not sure [facility] Work Phone: Start: 01-20-2021 End: 03-15-2023 History of Social function [facility] Start: 01-20-2021 End: 03-15-2023 Tobacco use panel [facility] National Score (1-10 0), lower number is lower risk Not on file [facility] Start: 12-27-2019 Gender identity Identifies as female gender (finding) [facility] Start: 12-27-2019 Sexual orientation Heterosexual (fin ding) [facility] Clinical Notes 11-18-2005 to 04-12-2023 Telephone Encounter - Aziza Cassidy RN - 04/12/2023 2:30 PM ESTTelephone Encounter - Katrina Kendrick MD - 04/12/2023 1:23 PM ESTTelephone Encounter - Evelina Barrios RN - 04/12/2023 12:50 PM EST Note Date & Type Note Facility 04-12-2023 Miscellaneous Notes Formattin g of this note might be different from the original. Notified patient orders were placed and transferred to schedule. Aziza Cassidy RN Done Katrina Kendrick MD Please file orders. Evelina Barrios RN ----- Message from Katrina Kendrick MD sent at 04/12/2023 12:38 PM EST ----- PROBABLY BENIGN - SHORT TERM INTERVAL FOLLOW-UP RECOMMENDED There is no abnormality seen in the right breast to correspond with the mammographic density. A follow-up mammogram in 6 months is recommended to demonstrate stability Katrina Kendrick MD documented in this encounter [facility] 04-12-2023 Note HNO ID: [id number] Author: ANANDA GARZA RDMS Service: ? Author Type: Information Consultant Type: Progress Notes Filed: 04/12/2023 13:20 Note Text: Radiology Service Progress Note PATIENT NAME: David Yanes DATE OF SERVICE: April 12, 2023 TIME: 1:20 PM PATIENT IDENTITY VERIFICATION COMPLETED USING TWO (2) IDENTIFIERS: Name and Date of confirmed by patient verbally. FALL SCREENING: Has the patient had 2 falls in the last year or 1 fall with injury or currently using an Ambulatory Assistive Device (Walker, Cane, Wheelchair, Crutches, etc.)? No PATIENT GENDER DATA: Female. status: : No status: NO. PATIENT RELEVANT IMPLANT DATA REVIEWED: Not Applicable RADIOLOGY DEPARTMENT: Ultrasound PERIPHERAL IV DATA: Not applicable SIGNED BY: Ananda Garza RDMS RVT April 12, 2023 1:20 PM [facility] 04-12-2023 Note HNO ID: [id number] Author: FRANNY MACHADO Mammo Tech Service: ? Author Type: Digester Capper Type: Progress Notes Filed: 04/12/2023 10:39 Note Text: Radiology Service Progress Note PATIENT NAME: David Yanes DATE OF SERVICE: April 12, 2023 TIME: 10:24 AM PATIENT IDENTITY VERIFICATION COMPLETED USING TWO (2) IDENTIFIERS: Name and Date of confirmed by patient verbally. FALL SCREENING: Has the patient had 2 falls in the last year or 1 fall with injury or currently using an Ambulatory Assistive Device (Walker, Cane, Wheelchair, Crutches, etc.)? No PATIENT GENDER DATA: Female. status: : No status: NO. PATIENT RELEVANT IMPLANT DATA REVIEWED: Not Applicable RADIOLOGY DEPARTMENT: Mammography PERIPHERAL IV DATA: Not applicable SIGNED BY: Franny Machado efectivox April 12, 2023 10:24 AM [facility] 03-17-2023 Miscellaneous Notes Formattin g of this note might be different from the original. Patient notified. Kathryn Marx RN Done Katrina Kendrick MD Patient called. Viewed her abnormal mammogram results. Needs order so that she can schedule her diagnostic imaging. Please file. Patient would then like a call back once orders have been placed. Kathryn Marx RN documented in this encounter [facility] 03-16-2023 Miscellaneous Notes Formattin g of this note might be different from the original. March 16, 2023 PID: [id number] David Yanes [address] [place] [address] Dear Ms. Yanes, Your recent breast imaging exam on 03/15/2023 showed a possible finding that requires additional imaging studies for a complete evaluation. Most such findings are probably benign (not cancer). Your mammogram demonstrates that you have dense breast tissue, which could hide abnormalities. Dense breast tissue, in and of itself, is a relatively common condition. Therefore, this information is not provided to cause undue concern; rather, it is to raise your awareness and promote discussion with your health care provider regarding the presence of dense breast tissue in addition to other risk factors. If you have a healthcare provider who ordered/prescribed your screening mammogram: Please call [phone] or [phone]: [phone] to schedule an appointment for your additional imaging (if you have not already done so). If you DO NOT have a healthcare provider (ie you did not have an order/prescription for your screening mammogram): Please call to schedule an appointment for your additional imaging (if you have not already done so). You must have an order/prescription from your physician when calling to schedule your appointment. If your order/prescription is not electronic, you must bring the hard copy with you on the day of your exam to avoid delays. Your imaging studies and reports are kept on file at [facility] as part of your permanent medical record, and are available for your continuing care. Thank you for allowing us to help in meeting your health care needs. Sincerely, Dr. Rodríguez Interpreting Radiologist [facility] (Additional imaging) documented in this encounter [facility] 03-15-2023 Note HNO ID: [id number] Author: Florentino Powers Mammo Tech Service: ? Author Type: Technologist Type: Progress Notes Filed: 03/15/2023 1:31 PM Note Text: Radiology Service Progress Note PATIENT NAME: David Yanes DATE OF SERVICE: March 15, 2023 TIME: 1:31 PM PATIENT IDENTITY VERIFICATION COMPLETED USING TWO (2) IDENTIFIERS: Name and Date of confirmed by patient verbally. FALL SCREENING: Has the patient had 2 falls in the last year or 1 fall with injury or currently using an Ambulatory Assistive Device (Walker, Cane, Wheelchair, Crutches, etc.)? No PATIENT GENDER DATA: Female. status: : No status: NO. PATIENT RELEVANT IMPLANT DATA REVIEWED: Not Applicable RADIOLOGY DEPARTMENT: Mammography PERIPHERAL IV DATA: Not applicable SIGNED BY: Manny Vasquez March 15, 2023 1:31 PM [facility] 03-15-2023 History of Presen t illness Narrative Radiology Service Progress Note PATIENT NAME: David Yanes DATE OF SERVICE: March 15, 2023 TIME: 1:31 PM PATIENT IDENTITY VERIFICATION COMPLETED USING TWO (2) IDENTIFIERS: Name and Date of confirmed by patient verbally. FALL SCREENING: Has the patient had 2 falls in the last year or 1 fall with injury or currently using an Ambulatory Assistive Device (Walker, Cane, Wheelchair, Crutches, etc.)? No PATIENT GENDER DATA: Female. status: : No status: NO. PATIENT RELEVANT IMPLANT DATA REVIEWED: Not Applicable RADIOLOGY DEPARTMENT: Mammography PERIPHERAL IV DATA: Not applicable SIGNED BY: Abigail Vasquezo Matias March 15, 2023 1:31 PM documented in this encounter [facility] 02-19-2022 History of Presen t illness Narrative David is a 62 year old who presents for an annual gynecologic exam. Postmenopausal: Yes Last Pap: 01/28/2021 normal HPV: 01/23/2021 negative History of abnormal pap: No Last mammogram: 2021 negative after follow up imaging OB History T0 L3 SAB1 IAB0 Ectopic0 Multiple0 Live Births0 Comment: Given 4 times; 3 living children. Had one daughter pass from 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 Snoring Toxic diffuse goiter without mention of thyrotoxic crisis or storm PAST SURGICAL HISTORY Procedure Laterality Date COLONOSCOPY FLX DX W/COLLJ SPEC WHEN PFRMD 08/26/2004 WITH POLYPECTOMY ENDOMETRIAL BX W/WO ENDOCERVIX BX W/O DILAT SPX 06/07/13 FAMILY HISTORY Problem Relation Age of Onset Diabetes Mother Hypertension Mother other (TIA) Mother Hypertension Father Lipids Father Hypertension Sister Hypertension Brother Heart Maternal Grandfather passed from an [place] Colon Cancer Paternal Grandmother Thyroid Maternal Aunt hypothyroidism Stroke Paternal Aunt Breast Cancer Paternal Aunt SOCIAL HISTORY Social History Tobacco Use Smoking status: Never Smokeless tobacco: Never Vaping Use Vaping Use: Never used Substance Use Topics Alcohol use: Yes Comment: rare Drug use: No REVIEW OF SYSTEMS Abdomen: No abdominal pain, nausea, vomiting, diarrhea, or constipation. No bloating, early satiety, indigestion, or increased flatulence. Bladder: No dysuria, gross hematuria, urinary frequency, urinary urgency. positive WES. Breast: No breast lumps, nipple d/c, overlying skin changes, redness or skin retraction Allergies and current medication updated:Yes EXAM: BP 124/82 Ht 5' 2 (1.58m) Wt 133 lb 6.4 oz (60.5kg) LMP 07/17/2012 BMI 24.39 kg/(m^2). GENERAL: pleasant, female in no apparent distress BREAST: soft, non-tender, symmetric, no dominant mass, normal nipple-areolar complex, no lymphadenopathy, and no nipple discharge CHEST: Normal inspiratory effort ABDOMEN: soft, non-tender, and no masses PELVIC: external genitalia normal, no vulvar lesions, no cervical lesions, normal appearing perineal body and perianal region BIMANUAL: uterus normal size, shape and consistency, no adnexal masses, and non-tender RECTOVAGINAL: rectovaginal exam negative for any masses or nodularity. NEURO: alert and oriented x3,exam grossly non-focal EXTREMITIES: normal ASSESSMENT/PLAN: 1) Health maintenance: Pap/HPV up to date. Mammogram up to date Nutrition, exercise and routine health maintenance exams reviewed. Colon cancer screening: up to date with screening - repeat with next year 2) Follow up one year or sooner as needed Katrina Kendrick MD documented in this encounter [facility] 02-10-2022 History of Presen t illness Narrative Radiology Service Progress Note PATIENT NAME: David Yanes DATE OF SERVICE: February 10, 2022 TIME: 1:12 PM PATIENT IDENTITY VERIFICATION COMPLETED USING TWO (2) IDENTIFIERS: Name and Date of confirmed by patient verbally. FALL SCREENING: Has the patient had 2 falls in the last year or 1 fall with injury or currently using an Ambulatory Assistive Device (Walker, Cane, Wheelchair, Crutches, etc.)? No PATIENT GENDER DATA: Female. status: : No status: NO. PATIENT RELEVANT IMPLANT DATA REVIEWED: Not Applicable RADIOLOGY DEPARTMENT: Mammography PERIPHERAL IV DATA: Not applicable SIGNED BY: Abigail Casaso Matias February 10, 2022 1:12 PM documented in this encounter [facility] 01-08-2022 Miscellaneous Notes Formattin g of this note might be different from the original. Patient called to schedule CB documented in this encounter [facility] 01-08-2022 Miscellaneous Notes Formattin g of this note might be different from the original. January 08, 2022 PID: [id number] David Yanes [address] [place] [address] Dear Ms. Yanes, Your recent breast imaging exam on 01/07/2022 showed a possible finding that requires additional imaging studies for a complete evaluation. Most such findings are probably benign (not cancer). Your mammogram demonstrates that you have dense breast tissue, which could hide abnormalities. Dense breast tissue, in and of itself, is a relatively common condition. Therefore, this information is not provided to cause undue concern; rather, it is to raise your awareness and promote discussion with your health care provider regarding the presence of dense breast tissue in addition to other risk factors. If you have a healthcare provider who ordered/prescribed your screening mammogram: Please call [phone] or [phone]: [phone] to schedule an appointment for your additional imaging (if you have not already done so). If you DO NOT have a healthcare provider (ie you did not have an order/prescription for your screening mammogram): Please call to schedule an appointment for your additional imaging (if you have not already done so). You must have an order/prescription from your physician when calling to schedule your appointment. If your order/prescription is not electronic, you must bring the hard copy with you on the day of your exam to avoid delays. Your imaging studies and reports are kept on file at [facility] as part of your permanent medical record, and are available for your continuing care. Thank you for allowing us to help in meeting your health care needs. Sincerely, Dr. Mena Interpreting Radiologist [facility] (Additional imaging) documented in this encounter [facility] documented as of this encounter (statuses as of 01/08/2022) [address] History of Past illness Narrative* Problem Noted Date Resolved Date 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 documented as of this encounter (statuses as of 01/08/2022) [address] History of Past illness Narrative* Problem Noted Date Resolved Date 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 documented as of this encounter (statuses as of 01/12/2022) [address] History of Past illness Narrative* Problem Noted Date Resolved Date 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 documented as of this encounter (statuses as of 02/19/2022) [address] History of Past illness Narrative* Problem Noted Date Diagnosed Date Resolved Date 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 documented as of this encounter (statuses as of 02/06/2023) [place] [address] History of Past illness Narrative* Problem Noted Date Diagnosed Date Resolved Date 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 documented as of this encounter (statuses as of 03/16/2023) [address] History of Past illness Narrative* Problem Noted Date Diagnosed Date Resolved Date 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 documented as of this encounter (statuses as of 03/18/2023) [address] History of Past illness Narrative* Problem Noted Date Diagnosed Date Resolved Date 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 documented as of this encounter (statuses as of 03/18/2023) [address] History of Past illness Narrative* Problem Noted Date Diagnosed Date Resolved Date 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 documented as of this encounter (statuses as of 04/12/2023) [facility]- Primary Abnormal mammogram, unspecified [facility] Encounter for gynecological examination without abnormal finding- Primary Routine gynecological examination Encounter for screening mammogram for malignant neoplasm of breast Other screening mammogram Dense breasts Inconclusive mammogram documented in this encounter [facility] note* Diagnosis Abnormal mammogram Abnormal mammogram, unspecified documented in this encounter [facility] note* Diagnosis Encounter for screening mammogram for malignant neoplasm of breast Other screening mammogram Dense breasts Inconclusive mammogram documented in this encounter [facility] note* Diagnosis Abnormal mammogram- Primary Abnormal mammogram, unspecified documented in this encounter [facility] note* Diagnosis Category 3 mammography result with short follow-up interval suggested for probably benign finding- Primary Inconclusive mammogram documented in this encounter [facility] for referral (narrative)* Diagnostic Procedure Only (Routine) - Authorized Specialty Diagnoses / Procedures Referred By Jackelin patino Referred To Contact [facility] Diagnoses Abnormal mammogram Procedures VERÓNICA DIAGNOSTIC LT DIAGNOSTIC MAMMOGRAPHY COMPUTER-AIDED DETCJ UNI Rosalind Steward APRN.CNP [address] [place] [address] [facility] [address] [place] [address] Referral ID Status Reason Start Date Expiration Date Visits Requested Visits Authorized [id number] Authorized Auto-Generat ed Referral 01/08/2022 02/07/2023 1 1 * Diagnostic Procedure Only (Routine) - Pending Review Specialty Diagnoses / Procedures Referred By Jackelin patino Referred To Contact [facility] Diagnoses Abnormal mammogram Procedures US BREAST LTD LT US BREAST UNI REAL TIME WITH IMAGE LIMITED Rosalind Steward APRN.CNP [address] [place] [address] [facility] [address] [place] [address] Referral ID Status Reason Start Date Expiration Date Visits Requested Visits Authorized [id number] Pending Review Auto-Generat ed Referral 01/08/2022 02/07/2023 1 1 [facility] [facility] Diagnostic Procedure Only (Routine) - Pending Review Specialty Diagnoses / Procedures Referred By Jackelin patino Referred To Contact [facility] Diagnoses Encounter for screening mammogram for malignant neoplasm of breast Dense breasts Procedures VERÓNICA SCREENING W JUANA SCREENING DIGITAL BREAST TOMOSYNTHESIS BI SCREENING MAMMOGRAPHY BI 2-VIEW BREAST INC CAD Katrina Kendrick MD [address] [place] [address] [facility] [address] [place] [address] Referral ID Status Reason Start Date Expiration Date Visits Requested Visits Authorized [id number] Pending Review Auto-Generat ed Referral 2 03/21/2023 1 1 [facility] for referral (narrative)* Diagnostic Procedure Only (Routine) - Authorized Specialty Diagnoses / Procedures Referred By Jackelin patino Referred To Contact [facility] Diagnoses Abnormal mammogram Procedures US BREAST LTD RIGHT US BREAST UNI REAL TIME WITH IMAGE LIMITED Katrina Kendrick MD [address] [place] [address] [facility] [address] [place] [address] Referral ID Status Reason Start Date Expiration Date Visits Requested Visits Authorized [id number] Authorized Auto-Generat ed Referral 3 04/14/2024 1 1 * Diagnostic Procedure Only (Routine) - Authorized Specialty Diagnoses / Procedures Referred By Jackelin patino Referred To Contact [facility] Diagnoses Abnormal mammogram Procedures VERÓNICA DIAGNOSTIC RIGHT DIAGNOSTIC MAMMOGRAPHY COMPUTER-AIDED DETCJ UNI Katrina Kendrick MD [address] [place] [address] [facility] [address] [place] [address] Referral ID Status Reason Start Date Expiration Date Visits Requested Visits Authorized [id number] Authorized Auto-Generat ed Referral 3 04/14/2024 1 1 [facility] for referral (narrative)* Diagnostic Procedure Only (Routine) - Pending Review Specialty Diagnoses / Procedures Referred By Contac t Referred To Contact [facility] Diagnoses Category 3 mammography result with short follow-up interval suggested for probably benign finding Procedures US BREAST LTD RIGHT US BREAST UNI REAL TIME WITH IMAGE LIMITED Katrina Kendrick MD [address] [place] [address] [facility] [address] [place] [address] Referral ID Status Reason Start Date Expiration Date Visits Requested Visits Authorized [id number] Pending Review Auto-Generat ed Referral 04/12/2023 05/11/2024 1 1 * Diagnostic Procedure Only (Routine) - Authorized Specialty Diagnoses / Procedures Referred By Jackelin t Referred To Contact [facility] Diagnoses Category 3 mammography result with short follow-up interval suggested for probably benign finding Procedures VERÓNICA DIAGNOSTIC RIGHT DIAGNOSTIC MAMMOGRAPHY COMPUTER-AIDED DETCJ UNI Katrina Kendrick MD [address] [place] [address] [facility] [address] [place] [address] Referral ID Status Reason Start Date Expiration Date Visits Requested Visits Authorized [id number] Authorized Auto-Generat ed Referral 04/12/2023 05/11/2024 1 1 [facility] for visit Narrative* Diagnostic Procedure Only (Routine) - Closed Specialty Diagnoses / Procedures [facility] Diagnoses Abnormal mammogram Procedures VERÓNICA DIAGNOSTIC LT DIAGNOSTIC MAMMOGRAPHY COMPUTER-AIDED DETCJ UNI Rosalind Steward APRN.CEMENTER HELPER [address] [place] [address] [facility] [address] [place] [address] Referral ID Status Reason Start Date Expiration Date V isits Requested Visits Authorized [id number] Closed Auto-Generate d Referral 01/08/2022 02/07/2023 1 1 [facility] for visit Narrative* Diagnostic Procedure Only (Routine) - Closed Specialty Diagnoses / Procedures Referred By Contbrice t Referred To Contact [facility] Diagnoses Encounter for screening mammogram for malignant neoplasm of breast Dense breasts Procedures VERÓNICA SCREENING W JUANA SCREENING DIGITAL BREAST TOMOSYNTHESIS BI SCREENING MAMMOGRAPHY BI 2-VIEW BREAST INC CAD Katrina Kendrick MD [address] [place] [address] [facility] [address] [place] [address] Referral ID Status Reason Start Date Expiration Date V isits Requested Visits Authorized [id number] Closed Auto-Generate d Referral 02/19/2022 03/21/2023 1 1 [facility] Summary Purpose Family History No Family History Records Found Advance Directives No Advanced Directives Records Found Additional Source Comments Source Comments (unrecognize d section and content) In the event this informatio n is protected by the Federal Confidentiality of Alcohol and Drug Abuse Patient Records regulations: The Federal rules restrict any use of the information to criminally investigate or prosecute any alcohol or drug abuse patient.[facility] the event this information is protected by the Federal Confidentiality of Alcohol and Drug Abuse Patient Records regulations: The Federal rules restrict any use of the information to criminally investigate or prosecute any alcohol or drug abuse patient.[facility] the event this information is protected by the Federal Confidentiality of Alcohol and Drug Abuse Patient Records regulations: The Federal rules restrict any use of the information to criminally investigate or prosecute any alcohol or drug abuse patient.[facility] the event this information is protected by the Federal Confidentiality of Alcohol and Drug Abuse Patient Records regulations: The Federal rules restrict any use of the information to criminally investigate or prosecute any alcohol or drug abuse patient.[facility] the event this information is protected by the Federal Confidentiality of Alcohol and Drug Abuse Patient Records regulations: The Federal rules restrict any use of the information to criminally investigate or prosecute any alcohol or drug abuse patient.[facility] the event this information is protected by the Federal Confidentiality of Alcohol and Drug Abuse Patient Records regulations: The Federal rules restrict any use of the information to criminally investigate or prosecute any alcohol or drug abuse patient.[facility] the event this information is protected by the Federal Confidentiality of Alcohol and Drug Abuse Patient Records regulations: The Federal rules restrict any use of the information to criminally investigate or prosecute any alcohol or drug abuse patient.[facility] the event this information is protected by the Federal Confidentiality of Alcohol and Drug Abuse Patient Records regulations: The Federal rules restrict any use of the information to criminally investigate or prosecute any alcohol or drug abuse patient.[facility] the event this information is protected by the Federal Confidentiality of Alcohol and Drug Abuse Patient Records regulations: The Federal rules restrict any use of the information to criminally investigate or prosecute any alcohol or drug abuse patient.[facility] Reason for Visit (unrecogniz ed section and content) Reason Comments Mammogram Result Call Back Reason Onset Date Comments Yearly Exam 02/19/2022 Care Teams (unrecognized sec tion and content) Process Automation Engineer Relationship Specialty Start Date End Date Marlon Willoughby MD PCP - General 11/28/07 Process Automation Engineer Relationship Specialty Start Date End Date Marlon Willoughby MD PCP - General 11/28/07 Process Automation Engineer Relationship Specialty Start Date End Date Maroln Willoughby MD PCP - General 11/28/07 Process Automation Engineer Relationship Specialty Start Date End Date Marlon Willoughby MD PCP General 11/28/07 Process Automation Engineer Relationship Specialty Start Date End Date Marlon Willoughby MD [facility] 11/28/07 Process Automation Engineer Relationship Specialty Start Date End Date Marlon Willoughby MD [facility] 11/28/07 Process Automation Engineer Relationship Specialty Start Date End Date Marlon Willoughby MD [facility] 11/28/07 INFORMATION SOURCE (unrecogn ized section and content) FOR RECORDS PERTAINING TO PATIENTS WHO ARE OR HAVE BEEN ENROLLED IN A CHEMICAL DEPENDENCY/SUBSTANCEABUSE PROGRAM, SOME INFORMATION MAY BE OMITTED. This clinical summary was aggregated from multiple sources. Caution should be exercised in using it in the provision of clinical care. This summary normalizes information from multiple sources, and as a consequence, information in this document may materially change the coding, format and clinical context of patient data. In addition, data may be omitted in some cases. CLINICAL DECISIONS SHOULD BE BASED ON THE PRIMARY CLINICAL RECORDS. [employer] [facility]. provides no warranty or guarantee of the accuracy or completeness of information in this document.
[2023-04-21 13:29] LABS: Free T3 2.4 pg/mL (2.18-3.98); T4 Free Direct 1.16 ng/dL (0.76-1.46); Thyroid Stim Hormone (TSH) 7.56 uIU/mL (0.358-3.74)
== END | disposition home or self-care (01) ==
LOC: MFPLAB 11:15
PROVIDERS: PCP Family Medicine; Visit Provider Family Medicine
DX: E03.9 Hypothyroidism, unspecified (principal)
CPT/HCPCS: 36415; 84439; 84443; 84481

== ENCOUNTER 2023-07-20 05:23 | Day surgery (SDC) | payer OTHER, SELFPAY ==
[2023-07-20] VITALS (7 sets, daily range): BP systolic 117–137; BP diastolic 66–91; PULSE 71–77; RESP 16; TEMP 36.3–36.5; O2SAT 99–100; BMI 23.9
[2023-07-20] MEDS: Lactated Ringers 1,000 ML 15 ML IV (05:54)
--- NOTE | 2023-07-20 06:30 | COLBX_PTH ---
PATIENT: VIRGINIA MANDEL LOC: EN U#:[id number] AGE/SX: 63/F ROOM: RE07/20/[address]: Dr. Adrian Campos DO : 1960 BED: DIS: 07/20/2023 SPEC #: [id number] RECD: 07/20/23 07:53 STATUS: ELIZABETH REKristin #: [id number] LOY: 07/20/23 06:[address]: Adrian Campos DEPT: SURGICAL PATHOLOGY RECD BY: Aida Cabezas ENTERED: 07/20/23 09:03 SP TYPE: COLON BX OTHR DR: Dr. Ozzy Willoughby MD Tissues: Ascending colon Procedures: Surgery Specimen Level IV HEADER OPERATION: Colonoscopy, open access and polypectomy PRE-OP DIAGNOSIS: Screening TISSUE SUBMITTED: Polyp at ascending colon MICROSCOPIC DIAGNOSIS Ascending colon polyp, polypectomy: Fragments of tubular adenoma. Fragments of fecal material. See comment. LAVON/ 07/21/2023 COMMENT This specimen predominantly consists of fecal material. Correlation with clinical, endoscopic findings and appropriate follow up are necessary. Case has been reviewed in consultation with Dr. Davidson who concurs with the above diagnosis. IDC:AM MICROSCOPIC DESCRIPTION Slides are reviewed. GROSS DESCRIPTION Received in fixative is one container labeled with the patient's name and designated Polyp at ascending colon. The specimen consists of multiple irregular fragments of osuna soft tissue mixed with fecal material that in aggregate measure 3.0 x 1.5 x 0.2 cm. This specimen predominantly consists of fecal material. The specimen is totally submitted in one cassette. LAVON/ 07/20/23 TC:1 CPT:92960
--- NOTE | 2023-07-20 06:52 | PCM.HP.STD ---
HPI - General General Date of Admission: 07/20/23 Date of Service: 07/20/23 Chief Complaint: Screening colonoscopy HPI Narrative VIRGINIA MANDEL, is a 63 F who presents today for screening colonoscopy. She had a colonoscopy approximately 10 years ago. She she has only past medical history of mild hypertension and mild hypothyroidism. Above controlled medicines. Overall she is in very good health. [facility] Medical History (Updated 07/14/23 @ 15:23 by Olga Paulson) Alcohol use Anxiety Diverticulosis Family hx of colon cancer GERD (gastroesophageal reflux disease) High cholesterol History of irregular heartbeat History of stress test Hypercholesterolemia Hypertension Hypothyroidism Low iron Non-smoker Restless legs Thyroid disease Wears glasses Home Medications sodium sul 1.479 gram-potas ch 0.188 gram-magnes sul 0.225 gram tablet (Sutab) See Rx Instructions PO PER PKG DIR Colonoscopy prep #24 tabs 05/03/23 [Rx Last Taken Unknown] ascorbate calcium (vitamin C) 500 mg tablet 500 mg PO DAILY 05/05/23 [History Last Taken Unknown] cholecalciferol (vitamin D3) 50 mcg (2,000 unit) capsule 50 mcg PO DAILY 05/05/23 [History Last Taken Unknown] ferrous sulfate 325 mg (65 mg iron) tablet 325 mg PO DAILY 05/05/23 [History Last Taken Unknown] loratadine 10 mg capsule (Claritin Liqui-Gel) 10 mg PO QHS 05/05/23 [History Last Taken Unknown] mecobalamin (vitamin B12) 1,000 mcg chewable tablet 500 mcg PO DAILY 05/05/23 [History Last Taken Unknown] psyllium husk 0.4 gram capsule (Fiber (psyllium husk)) 0.4 g PO BID 05/05/23 [History Last Taken Unknown] valacyclovir 1 gram tablet (Valtrex) 2,000 mg PO BID PRN cold sores 05/05/23 [History Last Taken Unknown] famotidine 20 mg tablet (Acid Controller) 20 mg PO DAILY 07/14/23 [History Last Taken Unknown] lactobacillus combination no.4 3 billion cell capsule (Probiotic) 3,000 mmu cells PO DAILY 07/14/23 [History Last Taken Unknown] levothyroxine 150 mcg tablet 150 mcg PO DAILY 07/14/23 [History Last Taken Unknown] magnesium oxide 420 mg tablet 420 mg PO BID 07/14/23 [History Last Taken Unknown] spironolactone 100 mg tablet 50 - 100 mg PO DAILY 07/14/23 [History Last Taken Unknown] Allergy/AdvReac Type Severity Reaction Status Date / Time adhesive tape Allergy Rash Verified 07/20/23 05:42 lisinopril AdvReac Cough Verified 07/20/23 05:42 metoprolol [From Toprol XL] AdvReac Dreams Verified 07/20/23 05:42 Surgical History (Updated 07/14/23 @ 15:23 by Olga Paulson) History of blepharoplasty (09/21/22) History of wisdom tooth extraction Hx of colonoscopy with polypectomy Social History (Updated 05/05/23 @ 09:17 by Nadja Jackson) household members: spouse current occupational status: employed 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 Smoking Status: Never smoker substance use type: does not use ROS Review of Systems ROS Unobtainable: other Constitutional Constitutional: Denies fatigue, fever(s), poor appetite, weight gain or weight loss ENT HEENT: Denies mouth lesions Cardiovascular Cardiovascular: Denies abdominal bloating, abdominal edema or abdominal pain Respiratory/Chest Respiratory/Chest: Denies change in mental status, change in phlegm color, chest congestion or chest tightness Gastrointestinal Gastrointestinal: Denies belching, bloating, change in bowel habits, change in stool character, chewing difficulty, coffee ground emesis, constipation, cramping, diarrhea, dyspepsia, dysphagia, early satiety, excessive flatus, fecal incontinence, heartburn, hematemesis, hematochezia, hemorrhoids, loose stools, melena, nausea, odynophagia, rectal bleeding, tenesmus, vomiting or weight changes Genitourinary Genitourinary: Denies abdominal discomfort, burning urination or itching Musculoskeletal Musculoskeletal: Reports as per HPI; Denies muscle weakness or myalgias Integumentary Integumentary: Denies jaundice Neurologic Neurologic: Denies lack of coordination or weakness Psychiatric Psychiatric: Denies confusion, depression, memory loss, mood swings, paranoia or suicidal ideation Endocrine Endocrinology: Denies systems reviewed and no addt'l complaints, except as documented Hematologic/Lymphatic Hematologic/Lymphatic: Denies anemia, easy bleeding, easy bruising or lymphadenopathy Allergic/Immunologic Allergic/Immunologic: Denies systems reviewed and no addt'l complaints, except as documented Vital Signs Vital Signs Vital Signs: 07/20/23 05:47 07/20/23 05:47 Temperature 97.7 F L Temperature Source Temporal Pulse Rate 77 Respiratory Rate 16 Respiratory Pattern Normal Blood Pressure 137/91 H Blood Pressure Mean 106 Blood Pressure Source Monitor Blood Pressure Position Semi-Fowlers Blood Pressure Location Left Arm Pulse Ox 99 Oxygen Delivery Method Room Air Weight Weight: 131 lb Body Mass Index (BMI) 23.9 Physical Exam Const alert General Appearance: cooperative Orientation / Consciousness: oriented to person HEENT hearing grossly normal bilaterally Head and Scalp: normal to inspection Face and Sinus: face symmetric Nose: external nose normal Mouth: oral and palatal mucosa normal Eyes conjunctivae normal General Eye: normal appearance of both eyes Neck full ROM General: normal visual inspection Lymph Lymphatic: no lymphadenopathy noted Chest inspection of chest normal and palpation of chest normal Chest: symmetrical chest wall rise Resp normal respiratory effort Effort and Inspection: able to speak in complete sentences Cardio regular rate GI non-distended Percussion: normal to percussion Rectal Exam: deferred Neuro Speech: speech normal Gait (Neuro): normal gait Assessment & Plan Assessment/Plan (1) Encounter for screening for malignant neoplasm of colon: PLAN: She was explained alternatives, risk, benefits including not withstanding bleeding, infection, sepsis, perforation, need for emergent urgent . She will have an ASA of 2.
== END 2023-07-20 08:00 | disposition home or self-care (01) ==
LOC: EN 05:24 → AC 05:26
PROVIDERS: PCP Family Medicine; Referring Provider Family Medicine; Visit Provider Internal Medicine Gastroenterology
PROC: 0DJD8ZZ Inspection of Lower Intestinal Tract, Via Natural or Artificial Opening Endoscopic (ICD-10-PCS; CPT 45378; principal; 2023-07-20 06:25)
DX: Z12.11 Encounter for screening for malignant neoplasm of colon (principal); D12.2 Benign neoplasm of ascending colon; I10 Essential (primary) hypertension; E03.9 Hypothyroidism, unspecified; K57.30 Diverticulosis of large intestine without perforation or abscess without bleeding; Z79.899 Other long term (current) drug therapy
CPT/HCPCS: 45385; 88305; J7120; J2405

== ENCOUNTER → 2023-10-21 | Outpatient (CLI) | payer OTHER, SELFPAY ==
[2023-10-21 15:46] LABS: Anion Gap 6 (5-15); BUN 16 mg/dL (7-18); BUN/Creat Ratio 21.7 RATIO (10-20); Calcium,Total 9.7 mg/dL (8.5-10.1); Chloride 103 mmol/L (98-107); Creatinine, Serum 0.74 mg/dL (0.55-1.02); EST Glomerular Filtration Rate 85 mL/min (>60); Est Glom Filt Rate - Afr Amer 103 mL/min (>60); Free T3 2.9 pg/mL (2.18-3.98); Glucose 97 mg/dL (74-106); Magnesium 2.3 mg/dL (1.6-2.6); Potassium 4.2 mmol/L (3.5-5.1); Sodium Level 137 mmol/L (136-145); T4 Free Direct 1.58 ng/dL (0.76-1.46); Thyroid Stim Hormone (TSH) 0.11 uIU/mL (0.358-3.74)
== END | disposition home or self-care (01) ==
LOC: MFPLAB 13:43
PROVIDERS: PCP Family Medicine; Visit Provider Family Medicine
DX: I10 Essential (primary) hypertension (principal); E03.9 Hypothyroidism, unspecified
CPT/HCPCS: 36415; 80048; 83735; 84439; 84443; 84481

== ENCOUNTER → 2023-12-29 | Outpatient (CLI) | payer OTHER, SELFPAY ==
[2023-12-29 18:06] LABS: Free T3 3.1 pg/mL (2.18-3.98); T4 Free Direct 1.39 ng/dL (0.76-1.46); Thyroid Stim Hormone (TSH) 0.366 uIU/mL (0.358-3.740)
== END | disposition home or self-care (01) ==
LOC: MFPLAB 14:43
PROVIDERS: PCP Family Medicine; Visit Provider Family Medicine
DX: E03.9 Hypothyroidism, unspecified (principal)
CPT/HCPCS: 36415; 84439; 84443; 84481

== ENCOUNTER → 2024-03-14 | Outpatient (CLI) | payer OTHER, SELFPAY ==
[2024-03-19 09:22] LABS: Thyroid Peroxidase AB 10 IU/mL (0-34); Thyroid Stim Immunoglob 0.12 IU/L (0.00-0.55)
== END | disposition home or self-care (01) ==
PROVIDERS: PCP Family Medicine; Referring Provider Family Medicine; Visit Provider Family Medicine
DX: H02.409 Unspecified ptosis of unspecified eyelid (principal)
CPT/HCPCS: 36415; 84443; 84445; 86376

== ENCOUNTER → 2024-05-07 | Outpatient (CLI) | payer OTHER, SELFPAY ==
[2024-05-07 16:15] LABS: AST(SGOT) 31 U/L (15-37); Alanine Aminotransfer ALT/SGPT 66 U/L (13-56); Albumin, Serum 3.9 g/dL (3.2-5.0); Alkaline Phosphatase 83 U/L (45-117); Anion Gap 6 (5-15); BUN 14 mg/dL (7-18); BUN/Creat Ratio 17.5 RATIO (10-20); Calcium,Total 9.3 mg/dL (8.5-10.1); Chloride 106 mmol/L (98-107); EST Glomerular Filtration Rate 77 mL/min (>60); Est Glom Filt Rate - Afr Amer 94 mL/min (>60); Globulin 3.8 g/dL (2.2-4.2); Glucose 94 mg/dL (74-106); Potassium 3.8 mmol/L (3.5-5.1); Protein, Total 7.7 g/dL (6.4-8.2); Sodium Level 138 mmol/L (136-145)
[2024-05-07 16:37] LABS: HIV - WCH Non-Reactive (Nonreactive); Hepatitis B Surface Antigen Non-Reactive (Nonreactive); Hepatitis C Antibody Non-Reactive (Nonreactive)
[2024-05-07 16:39] LABS: Absolute Lymphocyte Count 1.07 X10^3/uL (0.83-4.51); Absolute Neutrophil Count 2.5 X10^3/uL (2.0-7.7); Basophil# 0.03 X10^3/uL; Basophil% 0.7 % (0-1); Eosinophil# 0.18 X10^3/uL; Eosinophils% 4.3 % (0-5); Hematocrit 41.7 % (37-47); Hemoglobin 13.7 g/dL (12.0-15.0); Lymphocyte # 1.07 X10^3/ul (0.83-4.51); Lymphocyte % 25.6 % (19-41); Mean Corp Hgb Conc 32.9 g/dL (32-36); Mean Corpuscular Hgb 30.4 pg (27.0-32.0); Mean Corpuscular Volume 92.5 fL (81-99); Monocyte% 9.6 % (0-10); NRBC Flagged by Analyzer 0 % (0-5); Neutrophil # 2.49 X10^3/uL (2.7-7.7); Neutrophil % 59.6 % (47-70); Platelet Count 263 K/mm3 (150-450); RBC Distribution Width CV 11.7 % (11.6-14.6); RBC Distribution Width SD 39.5 fl (35.1-43.9); Red Blood Count 4.51 M/mm3 (4.2-5.4); White Blood Count 4.2 K/mm3 (4.4-11.0)
== END | disposition home or self-care (01) ==
LOC: MFPLAB 10:52
PROVIDERS: PCP Family Medicine; Referring Provider Family Medicine; Visit Provider Family Medicine
DX: Z01.818 Encounter for other preprocedural examination (principal); Z11.9 Encounter for screening for infectious and parasitic diseases, unspecified; I10 Essential (primary) hypertension
CPT/HCPCS: 36415; 80053; 85025; 86703; 86803; 87340

== ENCOUNTER → 2024-11-07 | Outpatient (CLI) | payer OTHER, SELFPAY ==
[2024-11-07 13:22] LABS: Cholesterol 269 mg/dL (<=200); Free T3 2.7 pg/mL (2.18-3.98); Low Density Lipoprotein Calc. 174 mg/dL; Triglycerides 125 mg/dL; Very Low Density Lipoprotein 25 mg/dL (5-40); cholesterol:hdl ratio screen 3.84
--- OUTSIDE RECORDS SUMMARY | 2024-11-07 15:01 | XMS RPT_ITS | CCD ---
Author Organization [facility] Care Team Providers Care Cotton Ginner Helper Name Role Phone Marlon Willoughby MD Primary Care Provider [phone] Dr. Marlon Willoughby Primary Care Provider [phone] Nadja Jackson Attending Provider Unavailable Dr. Marlon Willoughby Referring Provider [phone] Friend, Dr. Campbell Attending Provider Friend, Dr. Campbell Other Provider Case MONTEZ, Marlon Magaña Primary Care Provider KATRINA KENDRICK Attending Unavailable WILLOUGHBY, MARLON A Primary Care Unavailable MIREILLE, KARIRINA Referring Unavailable WILLOUGHBY, MARLON A Primary Care Unavailable MIREILLE, KARMON Referring Unavailable WILLOUGHBY, MARLON A Primary Care Unavailable MIREILLE, KARIRINA Referring Unavailable WILLOUGHBY, MARLON A Primary Care Unavailable Willoughby, Marlon Referring Unavailable Willoughby, Marlon Primary Care Unavailable Friend, Adrian Consulting Unavailable Friend, Adrian Attending Unavailable Willoughby, Marlon Referring Unavailable Willoughby, Marlon Primary Care Unavailable Friend, Adrian Attending Unavailable Willoughby, Marlon Primary Care Unavailable Willoughby, Marlon Attending Unavailable Willoughby, Marlon Primary Care Unavailable Willoughby, Marlon Attending Unavailable Willoughby, Marlon Referring Unavailable Willoughby, Marlon Primary Care Unavailable Willoughby, Marlon Attending Unavailable Willoughby, Marlon Primary Care Unavailable Willoughby, Marlon Attending Unavailable Willoughby, Marlon Referring Unavailable Allergies Allergy Classification Reported Allergen(s) Allergy Type Date of Onset Reaction(s) Facility (4 sources) Adhesive Tape; Translations: [adhesive tape] Allergy to substance 9 [facility] (14 sources) Adhesive Tape; Translations: [ADHESIVE TAPE (ROSINS)] Propensity to adverse reactions 5 [facility] Work Phone: (1 source) Lisinopril Drug Allergy 4 Cough [facility] (1 source) Metoprolol Drug Allergy 4 Dreams [facility] (1 source) Lisinopril Drug Allergy 4 [facility] (1 source) Metoprolol Drug Allergy 4 [facility] Medications Current Medications Medication Drug Class(es) Dates Sig (Normalized) Sig (Original) calcium ascorbate 500 mg oral tablet (1 source) Start: 05-05-2023 take 500 mg by mouth once daily Ascorbate Calcium (Vitamin C) Active 500 MG PO DAILY May 05, 2023 1:00am cholecalciferol 0.05 mg oral capsule (1 source) Vitamin D Start: 05-05-2023 take 50 ug by mouth once daily Cholecalciferol (Vitamin D3) Active 50 MCG PO DAILY May 05, 2023 1:00am doxycycline monohydrate 50 mg oral capsule (20 sources) Tetracycline-cl ass Drug Start: 02-22-2019 take 1 capsule by mouth once daily as needed doxycycline monohydrate (MONODOX) 50 mg capsule Take 1 capsule by mouth once daily as needed. For roseaca 02/22/2019 Active Start: 04-25-2018 End: 05-05-2023 take 100 mg by mouth once daily Doxycycline Monohydrate Discontinued 100 MG PO DAILY April 25, 2018 1:00am May 05, 2023 10:20am End: 05-01-2024 DOXYCYCLINE CALCIUM ORAL Sushil e by mouth. 05/01/2024 Discontinued (Other) DOXYCYCLINE CALC IUM ORAL Take by mouth. Active DOXYCYCLINE CALC IUM ORAL Take by mouth. 0 Active Comment on above: Take by mouth. Take 1 capsule by [facility] once daily as needed. For roseaca famotidine 20 mg oral tablet (1 source) Histamine-2 Receptor Antagonist Start: 07-14-2023 take 1 tablet by mouth once daily Famotidine (Acid Controller) 20 mg tablet Active 20 MG PO DAILY July 14, 2023 12:00am ferrous sulfate 325 mg oral tablet (10 sources) Start: 05-05-2023 take 325 mg by mouth once daily Ferrous Sulfate Active 325 MG PO DAILY May 05, 2023 1:00am ferrous sulfate (IRON ORAL) Take by mouth. Active ferrous sulfate (IRON ORAL) Take by mouth. 0 Active Comment on above: Take by mouth. ivermectin 10 mg/ml topical cream (1 source) Antiparasitic, Pediculicide Start: 03-31-20 ivermectin 1 % APPLY TOPICALLY TO FACE EVERY DAY 03/31/2024 Active Lactobacillus Combination No.4 (Probiotic) 3 billion cell capsule (1 source) Start: 07-14-19 take 3 capsules by mouth once daily Lactobacillus Combination No.4 (Probiotic) 3 billion cell capsule Active 3000 MMU CELLS PO DAILY July 14, 2023 12:00am administer with a meal levothyroxine sodium 0.137 mg oral tablet (20 sources) l-Thyroxine Start: 04-27-19 take 1 tablet by mouth once levothyroxine (SYNTHROID) 137 mcg tablet Take 1 tablet by mouth every afternoon. 04/27/2024 Active Start: 07-14-2023 take 150 ug by mouth once daily Levothyroxine Active 150 MCG PO DAILY July 14, 2023 12:00am Start: 04-25-2018 End: 05-01-2024 take 1 tablet by mouth once daily levothyroxine (SYNTHROID) 125 mcg tablet Take 1 tablet by mouth once daily. 02/16/2019 05/01/2024 Discontinued (Other) Start: 10-29-2009 End: 05-01-2024 levothyroxine sodium(LEVOXYL 112 MCG TAB) Take one(1) tablet daily. 0 10/29/2009 05/01/2024 Discontinued (Other) Comment on above: Take one(1) tablet d aily. Take 1 tablet by marnie th once daily. loratadine 10 mg oral capsule (1 source) Start: 05-05-2023 take 1 capsule by mouth at bedtime Loratadine (Claritin Liqui-Gel) 10 mg capsule Active 10 MG PO AT BEDTIME May 05, 2023 1:00am magnesium oxide 420 mg oral tablet (20 sources) Start: 07-14-2023 take 420 mg by mouth twice daily Magnesium Oxide Active 420 MG PO TWICE A DAY July 14, 2023 12:00am Start: 12-28-2018 magnesium oxid e (MAG-OX) 400 mg (241.3 mg magnesium) tablet Take 1 tablet by mouth as directed. 1-2 times daily 12/28/2018 Active Start: 04-25-2018 End: 07-14-2023 take 800 mg by mouth once daily Magnesium Oxide Discontinued 800 MG PO DAILY April 25, 2018 1:00am July 14, 2023 3:09pm Comment on above: Take 1 tablet by marnie th as directed. 1-2 times daily mecobalamin 1 mg chewable tablet (1 source) Start: 05-05-19 take 500 ug by mouth once daily Mecobalamin (Vitamin B12) Active 500 MCG PO DAILY May 05, 2023 1:00am psyllium 400 mg oral capsule (1 source) Start: 05-05-19 Psyllium Husk (Fiber (Psyllium Husk)) 0.4 gram capsule Active 0.4 GM PO TWICE A DAY May 05, 2023 1:00am Sod Sulf-Pot Chloride-Mag Sulf (1 source) Start: 05-03-19 take 1.479 tablets by mouth once Sod Sulf-Pot Chloride-Mag Sulf (Sutab) 1.479-0.188- 0.225 gram tablet Active 0 PO per package directions May 03, 2023 1:00am PO PER PKG DIR spironolactone 100 mg oral tablet (20 sources) Aldosterone Antagonist Start: 07-14-19 take 50-100 mg by mouth once daily Spironolactone Active 50 - 100 MG PO DAILY July 14, 2023 12:00am Start: 05-05-2023 End: 07-14-2023 take 50 mg by mouth once daily Spironolactone Discontinued 50 MG PO DAILY May 05, 2023 10:19am July 14, 2023 3:09pm Start: 03-20-2010 End: 05-05-2023 spironolactone (ALDACTONE) 2 5 mg tablet takes one and half pill daily 0 03/20/2010 Active Comment on above: takes one and half p ill daily valACYclovir 1000 mg oral tablet (1 source) Herpesvirus Nucleoside Analog DNA Polymerase Inhibitor, Herpes Simplex Virus Nucleoside Analog DNA Polymerase Inhibitor, Herpes Zoster Virus Nucleoside Analog DNA Polymerase Inhibitor Start: 05-05-2023 Valacyclovir (Valtrex) 1 gram tablet Active 2000 MG PO TWICE A DAY May 05, 2023 1:00am Completed/Discontinued Medications Medication Drug Class(es) Dates Sig (Normalized) Sig (Original) aspirin 81 mg delayed release oral tablet (20 sources) Platelet Aggregation Inhibitor, Nonsteroidal Anti-inflammatory Drug Start: 04-25-2018 End: 05-05-2023 take 81 mg by mouth once daily Aspirin Discontinued 81 MG PO DAILY@0800 April 25, 2018 1:00am May 05, 2023 10:20am Start: 01-05-2005 End: 05-01-2024 ASPIRIN 81 MG TAB Take one ( 1) tablet daily . 0 01/05/2005 05/01/2024 Discontinued (Other) Comment on above: Take one (1) tablet daily . docosahexaenoic acid 144 mg / eicosapentaenoic acid 216 mg / vitamin e 2 unt oral capsule (1 source) Start: End: take 1 capsule by mouth once daily Rattan-3 Fatty Acids-Fish Oil (Fish Oil) 360-1,200 mg capsule Discontinued 1 CAP PO DAILY May 05, 2023 1:00am July 14, 2023 3:11pm esomeprazole 20 mg delayed release oral capsule (1 source) Proton Pump Inhibitor Start: End: take 20 mg by mouth once daily Esomeprazole Magnesium Discontinued 20 MG PO DAILY May 05, 2023 1:00am July 14, 2023 3:12pm LORazepam 0.5 mg oral tablet (3 sources) Benzodiazepine Start: 023 End: take 0.5 mg by mouth every twelve hours Lorazepam Discontinued 0.5 MG PO Q12H February 07, 2023 1:00am May 05, 2023 10:20am magnesium carbonate (13 sources) End: MAGNESIUM CARBONATE ORAL Take by mouth once daily. 05/01/2024 Discontinued (Other) MAGNESIUM CARBON ATE ORAL Take by mouth once daily. Active MAGNESIUM CARBON ATE ORAL Take by mouth once daily. 0 Active Comment on above: Take by mouth once d aily. MEDICATION, NON-DATABASE (13 sources) End: 05-01-2024 MEDICATION, NON-DATABASE Acutane - Rx by [facility] [place] 05/01/2024 Discontinued (Other) MEDICATION, NON- DATABASE Acutane - Rx by [facility] [place] Active MEDICATION, NON- DATABASE Acutane - Rx by [facility] [place] 0 Active Comment on above: Acutane - Rx by Ayah Del Toro raNITIdine 150 mg oral tablet (7 sources) Histamine-2 Receptor Antagonist Start: 9 End: take 1 tablet by mouth once daily Ranitidine (Zantac) 150 MG tablet Discontinued 150 MG PO DAILY April 28, 2018 1:00am May 05, 2023 10:18am Problems Active Problems Problem Classification Problem Date Documented Da te Episodic/Chronic Complications of surgical procedures or medical care (13 sources) Postablative hypothyroidism; Translations: [Postprocedural hypothyroidism] Onset: 11-18-2005 11-18-2005 Chronic Essential hypertension (1 source) Essential (primary) hypertension; Translations: [Essential (primary) hypertension] Onset: 11-05-2023 Chronic Mood disorders (3 sources) Depressive disorder; Translations: [Depression] 02-08-2023 Chronic Other eye disorders (1 source) Unspecified ptosis of unspecified eyelid; Translations: [Unspecified ptosis of unspecified eyelid] Onset: 05-07-2024 Episodic Thyroid disorders (5 sources) Toxic diffuse goiter; 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] Onset: 01-19-2024 Resolved: 11-18-2005 10-13-2023 Chronic Past or Other Problems Problem Classification Problem Date Documented Da te Episodic/Chronic Other screening for suspected conditions (not mental disorders or infectious disease) (20 sources) Patient encounter status; Translations: [Encounter for screening for malignant neoplasm of intestinal tract, unspecified] Onset: 09-12-2014 Episodic Results Test Name Value Interpretation Reference Range Facility CBC W/Diff, Automatedon Absolute Lymph 1.07 X10 3/uL Normal 0.83-4.51 [facility] Comment on above: Order Comment: Order Date: 04/27/24Order Info: 0184-1 - CBCD Performed By: #### L 3890.6300, L3890.6100, L3890.6005 #### [facility] [address] [place], [address] Absolute Neut 2.5 X10 3/uL Normal 2.0-7.7 [facility] Comment on above: Order Comment: Order Date: 04/27/24Order Info: 0184-1 - CBCD Performed By: #### L 3890.6300, L3890.6100, L3890.6005 #### [facility] [address] [place], [address] Basophils/100 WBC (Bld) 0.7 % Normal 0-1 [facility] Comment on above: Order Comment: Order Date: 04/27/24Order Info: 0184-1 - CBCD Performed By: #### L 3890.6300, L3890.6100, L3890.6005 #### [facility] [address] [place], [address] Eosinophils/100 WBC (Bld) 4.3 % Normal 0-5 [facility] Comment on above: Order Comment: Order Date: 04/27/24Order Info: 0184-1 - CBCD Performed By: #### L 3890.6300, L3890.6100, L3890.6005 #### [facility] [address] [place], [address] Erythrocyte distribution width (RBC) [Ratio] 11.7 % Normal 11.6-14.6 [facility] Comment on above: Order Comment: Order Date: 04/27/24Order Info: 0184-1 - CBCD Performed By: #### L 3890.6300, L3890.6100, L3890.6005 #### [facility] [address] [place], [address] Hematocrit (Bld) [Volume fraction] 41.7 % Normal 37-47 [facility] Comment on above: Order Comment: Order Date: 04/27/24Order Info: 0184-1 - CBCD Performed By: #### L 3890.6300, L3890.6100, L3890.6005 #### [facility] [address] [place], [address] Hemoglobin (Bld) [Mass/Vol] 13.7 g/dL Normal 12.0-15.0 [facility] Comment on above: Order Comment: Order Date: 04/27/24Order Info: 0184-1 - CBCD Performed By: #### L 3890.6300, L3890.6100, L3890.6005 #### [facility] [address] [place], [address] IG% 0.200 Normal 0.0-0.9 [facility] Comment on above: Order Comment: Order Date: 04/27/24Order Info: 0184-1 - CBCD Result Comment: IG% - Immature Granulocytes (promyelocytes, myelocytes and metamyelocytes) > 1% indicates that a LEFT SHIFT is Present. Performed By: #### L 3890.6300, L3890.6100, L3890.6005 #### [facility] [address] [place], [address] Lymphocytes/100 WBC (Bld) 25.6 % Normal 19-41 [facility] Comment on above: Order Comment: Order Date: 04/27/24Order Info: 0184-1 - CBCD Performed By: #### L 3890.6300, L3890.6100, L3890.6005 #### [facility] [address] [place], [address] MCH (RBC) [Entitic mass] 30.4 pg Normal 27.0-32.0 [facility] Comment on above: Order Comment: Order Date: 04/27/24Order Info: 0184-1 - CBCD Performed By: #### L 3890.6300, L3890.6100, L3890.6005 #### [facility] [address] [place], [address] MCHC (RBC) [Mass/Vol] 32.9 g/dL Normal 32-36 [facility] Comment on above: Order Comment: Order Date: 04/27/24Order Info: 0184-1 - CBCD Performed By: #### L 3890.6300, [id number], L3890.6005 #### [facility] [address] [place], [address] MCV (RBC) [Entitic vol] 92.5 fL Normal 81-99 [facility] Comment on above: Order Comment: Order Date: 04/27/24Order Info: 0184-1 - CBCD Performed By: #### L 3890.6300, L3890.6100, L3890.6005 #### [facility] [address] [place], [address] Monocytes/100 WBC (Bld) 9.6 % Normal 0-10 [facility] Comment on above: Order Comment: Order Date: 04/27/24Order Info: 0184- - CBCD Performed By: #### L 3890.6300, [id number], L3890.6005 #### [facility] [address] [place], [address] Neutrophils/100 WBC (Bld) 59.6 % Normal 47-70 [facility] Comment on above: Order Comment: Order Date: 04/27/24Order Info: 0184-1 - CBCD Performed By: #### L 3890.6300, L3890.6100, L3890.6005 #### [facility] [address] [place], [address] Nucleated RBC (Bld) [#/Vol] 0 10*3/uL Normal 0-5 [facility] Comment on above: Order Comment: Order Date: 04/27/24Order Info: 0184-1 - CBCD Performed By: #### L 3890.6300, L3890.6100, L3890.6005 #### [facility] [address] [place], [address] Platelet mean volume (Bld) [Entitic vol] 10.0 fL Normal 6.2-12.0 [facility] Comment on above: Order Comment: Order Date: 04/27/24Order Info: 0184-1 - CBCD Performed By: #### L 3890.6300, L3890.6100, L3890.6005 #### [facility] [address] [place], [address] Platelets (Bld) [#/Vol] 263 10*3/uL Normal 150-450 [facility] Comment on above: Order Comment: Order Date: 04/27/24Order Info: 018- - CBCD Performed By: #### L 3890.6300, [id number], L3890.6005 #### [facility] [address] [place], [address] RBC (Bld) [#/Vol] 4.51 10*6/uL Normal 4.2-5.4 [facility] Comment on above: Order Comment: Order Date: 04/27/24Order Info: 018- - CBCD Performed By: #### L 3890.6300, [id number], L3890.6005 #### [facility] [address] [place], [address] RDW SD 39.5 fl Normal 35.1-43.9 [facility] Comment on above: Order Comment: Order Date: 04/27/24Order Info: 018- - CBCD Performed By: #### L 3890.6300, L3890.6100, L3890.6005 #### [facility] [address] [place], [address] WBC (Bld) [#/Vol] 4.2 10*3/uL Low 4.4-11.0 [facility] Comment on above: Order Comment: Order Date: 04/27/24Order Info: 018- - CBCD Performed By: #### L 3890.6300, L3890.6100, L3890.6005 #### [facility] [address] [place], [address] Comprehensive Metabolic Prof ilomaira 05-07-2024 Albumin [Mass/Vol] 3.9 g/dL Normal 3.2-5.0 [facility] Comment on above: Order Comment: Order Date: 04/27/24Order Info: 0786-1 - CMP Performed By: #### L 3890.6300, L3890.6100, L3890.6005 #### [facility] [address] [place], [address] Albumin/Globulin [Mass ratio] 1.0 {ratio} Normal 0.9-2.4 [facility] Comment on above: Order Comment: Order Date: 04/27/24Order Info: 0786-1 - CMP Performed By: #### L 3890.6300, L3890.6100, L3890.6005 #### [facility] [address] [place], [address] ALK P 83 U/L Normal 45-117 [facility] Comment on above: Order Comment: Order Date: 04/27/24Order Info: 0786-1 - CMP Performed By: #### L 3890.6300, [id number], L3890.6005 #### [facility] [address] [place], [address] ALT [Catalytic activity/Vol] 66 U/L High 13-56 [facility] Comment on above: Order Comment: Order Date: 04/27/24Order Info: 0786-1 - CMP Performed By: #### L 3890.6300, L3890.6100, L3890.6005 #### [facility] [address] [place], [address] AST [Catalytic activity/Vol] 31 U/L Normal 15-37 [facility] Comment on above: Order Comment: Order Date: 04/27/24Order Info: 0786-1 - CMP Performed By: #### L 3890.6300, L3890.6100, L3890.6005 #### [facility] [address] [place], [address] Bilirubin [Mass/Vol] 0.60 mg/dL Normal 0.20-1.00 [facility] Comment on above: Order Comment: Order Date: 04/27/24Order Info: 0786-1 - CMP Result Comment: For patients on eltrombopag therapy, use of Dimension [place] TBIL is not recommended. Performed By: #### L 3890.6300, L3890.6100, L3890.6005 #### [facility] [address] [place], [address] BUN/CRE 17.5 RATIO Normal 10-20 [facility] Comment on above: Order Comment: Order Date: 04/27/24Order Info: 0786-1 - CMP Performed By: #### L 3890.6300, L3890.6100, L3890.6005 #### [facility] [address] [place], [address] CA,Total 9.3 mg/dL Normal 8.5-10.1 [facility] Comment on above: Order Comment: Order Date: 04/27/24Order Info: 0786-1 - CMP Performed By: #### L 3890.6300, [id number], L3890.6005 #### [facility] [address] [place], [address] Chloride [Moles/Vol] 106 mmol/L Normal 98-107 [facility] Comment on above: Order Comment: Order Date: 04/27/24Order Info: 0786-1 - CMP Performed By: #### L 3890.6300, [id number], L3890.6005 #### [facility] [address] [place], [address] CO2 [Moles/Vol] 26.0 mmol/L Normal 21.0-32.0 [facility] Comment on above: Order Comment: Order Date: 04/27/24Order Info: 0786-1 - CMP Performed By: #### L 3890.6300, L3890.6100, L3890.6005 #### [facility] [address] [place], [place], [address] Creatinine [Mass/Vol] 0.80 mg/dL Normal 0.55-1.02 [facility] Comment on above: Order Comment: Order Date: 04/27/24Order Info: 0786-1 - CMP Result Comment: The validity of the calculated GFR GFRAA in patients over 70 years has not been determined. Clinical correlation is essential. Performed By: #### L 3890.6300, L3890.6100, L3890.6005 #### [facility] [address] [place], [place], [address] EST GFR - AA 94 mL/min Normal >60 [facility] Comment on above: Order Comment: Order Date: 04/27/24Order Info: 0786-1 - CMP Result Comment: Afri can Nigerien GFR Calc Performed By: #### L 3890.6300, L3890.6100, L3890.6005 #### [facility] [address] [place], [address] GAP 6 Normal 5-15 [facility] Comment on above: Order Comment: Order Date: 04/27/24Order Info: 0786-1 - CMP Performed By: #### L 3890.6300, L3890.6100, L3890.6005 #### [facility] [address] [place], [address] GFR/1.73 sq M.predicted among non-blacks MDRD (S/P/Bld) [Vol rate/Area] 77 mL/min/{1.73_m2} Normal >60 [facility] Comment on above: Order Comment: Order Date: 04/27/24Order Info: 0786-1 - CMP Result Comment: Non- GFR Calc Performed By: #### L 3890.6300, L3890.6100, L3890.6005 #### [facility] [address] [place], [address] Globulin (S) [Mass/Vol] 3.8 g/dL Normal 2.2-4.2 [facility] Comment on above: Order Comment: Order Date: 04/27/24Order Info: 0786-1 - CMP Performed By: #### L 3890.6300, L3890.6100, L3890.6005 #### [facility] [address] [place], [address] Glucose [Mass/Vol] 94 mg/dL Normal 74-106 [facility] Comment on above: Order Comment: Order Date: 04/27/24Order Info: 0786-1 - CMP Performed By: #### L 3890.6300, L3890.6100, L3890.6005 #### [facility] [address] [place], [address] Potassium [Moles/Vol] 3.8 mmol/L Normal 3.5-5.1 [facility] Comment on above: Order Comment: Order Date: 04/27/24Order Info: 0786-1 - CMP Performed By: #### L 3890.6300, L3890.6100, L3890.6005 #### [facility] [address] [place], [address] Sodium [Moles/Vol] 138 mmol/L Normal 136-145 [facility] Comment on above: Order Comment: Order Date: 04/27/24Order Info: 0786-1 - CMP Performed By: #### L 3890.6300, L3890.6100, L3890.6005 #### [facility] [address] [place], [address] T PROT 7.7 g/dL Normal 6.4-8.2 [facility] Comment on above: Order Comment: Order Date: 04/27/24Order Info: 0786-1 - CMP Performed By: #### L 3890.6300, L3890.6100, L3890.6005 #### [facility] [address] [place], [place], [address] Urea nitrogen [Mass/Vol] 14 mg/dL Normal 7-18 [facility] Comment on above: Order Comment: Order Date: 04/27/24Order Info: 0786-1 - [facility] Performed By: #### L 3890.6300, L3890.6100, L3890.6005 #### [facility] [address] [place], [place], [address] HIV - WCHon 05-07-2024 HIV Non-Reactive Normal Nonreactive [facility] Comment on above: Performed By: #### L 3890.6300, L3890.6100, L3890.6005 #### [facility] [address] [place], [place], [address] Hepatitis B Surface Antigeno n 05-07-2024 HEP B Surf Ag Non-Reactive Normal Nonreactive [facility] Comment on above: Performed By: #### L 3890.6300, L3890.6100, L3890.6005 #### [facility] [address] [place], [place], [address] Hepatitis C Antibodyon 05-07 Hepatitis C AB Non-Reactive Normal Nonreactive [facility] Comment on above: Result Comment: Non Reactive: < 0.8 Equivocal: >/= 0.8 to < 1.0 Reactive: >/= 1.0 The CDC requires that a reactive/equivocal HCV antibody result be sent out for confirmation. HCV Quant by PCR testing. Performed By: #### L 3890.6300, L3890.6100, L3890.6005 #### [facility] [address] [place], [place], [id number] CNOVon 05-01-2024 CNOV Office Visit (OBGYWM ) -------- DAVID YANES ([id number]) 1960 F Date Time Provider Department 05/01/24 12:20 PM KATRINA KENDRICK OBGYWM During your visit today, we recorded the following information about you: Blood pressure Weight Height 126/86 62.1 kg 1.575 m Katrina Kendrick MD 05/01/2024 12:39 PM Signed David is a 64 year old who presents for an annual gynecologic exam. Postmenopausal: Yes Last Pap: 01/28/2021 normal HPV: 01/23/2021 negative History of abnormal pap: No Last mammogram: 2023 normal History of abnormal mammogram: Yes OB History T0 L3 SAB1 IAB0 Ectopic0 Multiple0 Live Births0 Comment: Given 4 times; 3 living children. 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 Snoring Toxic diffuse goiter without mention of thyrotoxic crisis or storm PAST SURGICAL HISTORY Procedure Laterality Date BLEPHAROPLASTY UPPER EYELID W/EXCESSIVE SKIN COLONOSCOPY FLX DX W/COLLJ SPEC WHEN PFRMD 08/26/2004 WITH POLYPECTOMY ENDOMETRIAL BX W/WO ENDOCERVIX BX W/O DILAT SPX 06/07/2013 FAMILY HISTORY Problem Relation Age of Onset Diabetes Mother Hypertension Mother other (TIA) Mother Hypertension Father Lipids Father Hypertension Sister Hypertension Brother Heart Maternal Grandfather passed from an CO Colon Cancer Paternal Grandmother Thyroid Maternal Aunt hypothyroidism Stroke Paternal Aunt Breast Cancer Paternal Aunt SOCIAL HISTORY Social History Tobacco Use Smoking status: Never Smokeless tobacco: Never Vaping Use Vaping status: Never Used Substance Use Topics Alcohol use: Yes Comment: rare Drug use: No REVIEW OF SYSTEMS Abdomen: No abdominal pain, nausea, vomiting, diarrhea, or constipation. No bloating, early satiety, indigestion, or increased flatulence. Bladder: No dysuria, gross hematuria, urinary frequency, urinary urgency, or incontinence Breast: No breast lumps, nipple d/c, overlying skin changes, redness or skin retraction Allergies and current medication updated:Yes SENSITIVE EXAM: The sensitive examination was discussed with the Patient or Patient's Authorized Soap Worker. As applicable, any other physician, advance practice provider, medical student, or other health professional student that will be observing or involved in the sensitive examination for educational or training purposes was discussed with the Patient or Authorized Soap Worker. The Patient or Authorized Soap Worker has agreed to proceed with the sensitive examination. (Sensitive examination includes inspection and/or palpation of the breasts, pelvis, prostate and anorectal regions). EXAM: BP 126/86 Ht 5' 2 (1.58m) Wt 137 lb (62.1kg) LMP 07/17/2012 BMI 25.05 kg/(m2). GENERAL: pleasant, female in no apparent distress BREAST: soft, non-tender, symmetric, no dominant mass, normal nipple-areolar complex, no lymphadenopathy, and no nipple discharge CHEST: Normal inspiratory effort ABDOMEN: soft, non-tender, and no masses PELVIC: external genitalia normal, no vulvar lesions, no cervical lesions, normal appearing perineal body and perianal region BIMANUAL: uterus normal size, shape and consistency, no adnexal masses, and non-tender RECTOVAGINAL: deferred. NEURO: alert and oriented x3,exam grossly non-focal EXTREMITIES: normal ASSESSMENT/PLAN: 1) Health maintenance: Pap/HPV up to date. Mammogram up to date Nutrition, exercise and routine health maintenance exams reviewed. Colon cancer screening: up to date with screening 2) Follow up one year or sooner as needed Katrina Kendrick MD Allergies As of Date: 05/01/2024 Noted Allergy Reaction ADHESIVE TAPE (ROSINS) 01/05/2005 Date Reviewed: 05/01/2024 Reviewed by: Katrina Kendrick MD - Fully Assessed Reason for Visit: Yearly Exam [187] Primary Visit Diagnosis:Encounter for gynecological examination (general) (routine) without abnormal findings [Z01.419] Other Visit Diagnosis:Encounter for screening mammogram for breast cancer [Z12.31] Order(s):VERÓNICA SCREENING W JUANA [[id number]] Order #: [id number] FUTURE Prescriptions as of 05/01/2024 - ivermectin 1 % APPLY TOPICALLY TO FACE EVERY DAY - levothyroxine (SYNTHROID) 137 mcg tablet Take 1 tablet by mouth every afternoon. - ferrous sulfate (IRON ORAL) Take by mouth. - doxycycline monohydrate (MONODOX) 50 mg capsule Take 1 capsule by mouth once daily as needed. For roseaca (more content not included)... Normal [facility] SCREENING W TOMOon 04-02 [facility] JUA[facility] * * *Final Report* * * DATE OF EXAM: Apr 02 2024 3:04PM [facility] 0582 - [facility] SCREENING W JUANA / PROCEDURE REASON: Encounter for screening mammogram for malignant neoplasm of breast * * * * Physician Interpretation * * * * RESULT: [address] [address] [place] [address] #[id number] - [facility] SCREENING W JUANA HISTORY: Patient is 64 years old and is seen for screening and is asymptomatic in both breasts. Patient states no personal history of breast cancer. Patient states no personal history of other cancers. COMPARISON STUDIES: The present examination has been compared to prior imaging studies dated 10/31/2018 (mammogram), 05/16/2019 (ultrasound), 12/27/2019 (mammogram), 12/29/2020 (mammogram), 01/07/2022 (mammogram), 02/10/2022 (mammogram), 03/15/2023 (mammogram), 04/12/2023 (ultrasound), 04/12/2023 (mammogram) and 10/25/2023 (mammogram). MAMMOGRAM TECHNIQUE: The study was acquired using full field digital technology and interpreted from soft copy. Digital Breast Tomosynthesis (DBT) images were obtained and used to assist in the interpretation of this examination. Computer-aided detection was utilized by the radiologist in the interpretation of this examination. MAMMOGRAM FINDINGS: The breasts are heterogeneously dense, which may obscure small masses. Multiple bilateral circumscribed/obscured breast masses have fluctuated, in keeping with fluctuating cysts; cysts have been documented on prior ultrasound. There are stable calcifications in both breasts. There are no significant interval changes. No suspicious masses, calcifications or other abnormalities are seen in either breast. IMPRESSION: There is no mammographic evidence of malignancy. Routine screening mammogram is recommended. Annual mammogram will be due in 1 year. BI-RADS Category 2: Benign RISK: Based on the Tyrer-Cuzick (TC) risk assessment model, this patient has a 7.0% lifetime risk of developing breast cancer, meaning they are at average risk for developing breast cancer. However, this is only an estimate based on available history provided on the patient's questionnaire. We encourage all patients to talk with their providers about these results, further recommendations for managing breast health, and appropriate supplemental screening options if the patient has dense breast tissue. Interpreting Radiologist: Lillie Sales M.D. Electronically signed on: 04/05/2024 Circulating Process Inspector: TANG Transcribe Date/Time: Apr 02 2024 2:53P Dictated by: LILLIE SALES MD This examination was interpreted and the report reviewed and electronically signed by: LILLIE SALES MD on Apr 05 2024 3:19PM EST [id number] Normal [facility] Thyroid Peroxidase ABon - THYR PEROX AB 10 IU/mL Normal 0-34 [facility] Comment on above: Result Comment: Perf ormed at: [facility] [address] [id number] Assembler Insulator: Juancho Parsons MD, Phone: [phone] Performed at: [facility] [address] [id number] Assembler Insulator: Ruddy Marshall PhD, Phone: [phone] Performed By: #### L 4080.4020, J6796.2539, F3693.7328 #### [facility] [address] [place], [address] Thyroid Stim Immunoglobon THY STIM IMMUNO 0.12 IU/L Normal 0.00-0.55 [facility] Comment on above: Performed By: #### L [id number], [id number], L3159.8754 #### [facility] [address] [place], [place], [address] Miscellaneous Lab Procedureo n 03-17-2024 [facility] TEST Normal [facility] Comment on above: Order Comment: #[id number] THYROTROPIN SERUM RF Result Comment: TEST RESULTS LIMITS Thyrotropin Receptor Ab, Serum <1.10 IU/L 0.00-1.75 TESTING PERFORMED AT [facility]. ORIGINAL REPORT ON FILE IN LAB CONTAINS ADDITIONAL TEST SITE INFORMATION. Performed By: #### L 3890.6300, L3890.6100, L3890.6005 #### [facility] [address] [place], [address] Thyroid Stim Hormone (TSH)on 03-14-2024 TSH 2.140 uIU/mL Normal 0.358-3.740 [facility] Comment on above: Performed By: #### L 3890.6300, L3890.6100, L3890.6005 #### [facility] [address] [place], [address] Free T3on 12-29-2023 Free T3 [Mass/Vol] 3.1 pg/mL Normal 2.18-3.98 [facility] Comment on above: Order Comment: Order Date: 10/25/23Order Info: 3051-0 - [id number] Info: 3016-3 - TSHOrder Info: 3024-7 - T4F Performed By: #### L 3890.6300, L3890.6100, L3890.6005 #### [facility] [address] [place], [address] T4 Free Directon 12-29-2023 T4 FREE DIRECT 1.39 ng/dL Normal 0.76-1.46 [facility] Comment on above: Order Comment: Order Date: 10/25/23Order Info: 3051-0 - [id number] Info: 3016-3 - TSHOrder Info: 3027 - T4F Performed By: #### L 3890.6300, L3890.6100, L3890.6005 #### [facility] [address] [place], [place], [address] Thyroid Stim Hormone (TSH)on 12-29-2023 TSH 0.366 uIU/mL Normal 0.358-3.740 [facility] Comment on above: Order Comment: Order Date: 10/25/23Order Info: 3051-0 - [id number] Info: 3016-3 - TSHOrder Info: 3027 - T4F Performed By: #### L 3890.6300, L3890.6100, L3890.6005 #### [facility] [address] [place], [place], [address] DBT Breast - right diagnosti c for implanton 10-25-2023 IMPRESSION: NEGATIVE There is no mammographic evidence of malignancy. Return to annual mammogram screening schedule is recommended. Shane carpio/andressa:10/25/2023 15:47:38 Assigner(s): RT Pedro(R)(M), [facility] Mammogram BI-RADS: Category 1: Negative Multiple national specialty organizations have released breast cancer screening guidelines for women at average risk for developing breast cancer - guidelines that are based on both evidence and opinion, yet differ on when to start and how often to screen for breast cancer. With representation from Breast Imaging, Internal Medicine, Women's Health, Family Medicine, and Medical/Surgical Oncology, the [facility] has carefully reviewed the data and reached the following consensus: 1) All women should engage in shared decision-making with their providers to decide when to start and how often to screen; 2) All women should have the opportunity to start screening mammography at age 40; 3) For women ages 45-55, we recommend annual screening mammograms; 4) For women ages 55 and over, we support both the transition from an annual to a biennial interval if this aligns more with patient's values and preferences, or continuation with annual screening; 5) All women should discuss with their providers when to stop screening mammograms. Circulating Process Inspector: Andressa Transcrinel Date/Time: Oct 25 2023 3:33P Dictated by: SHANE ROWLEY MD This examination was interpreted and the report reviewed and electronically signed by: SHANE ROWLEY MD on Oct 25 2023 3:47PM [facility] DIVISION OF RADIOLOGY * * *Final Report* * * DATE OF EXAM: Oct 25 2023 3:48PM [facility] 0629 - VER[facility]NICA DIAG W JUANA RT / PROCEDURE REASON: Category 3 mammography result with short follow-up interval suggested for probab * * * * Physician Interpretation * * * * RESULT: #[id number] - VERÓNICA DIAG W JUANA RT UNILATERAL RIGHT DIGITAL DIAGNOSTIC MAMMOGRAM TOMOSYNTHESIS WITH CAD: 10/25/2023 HISTORY: Category 3 Mammography Result With Short Follow-Up Interval Suggested For Probab / Short term follow up right breast.-Abnormal Mammogram /priors available for comparison. RESULT: TECHNIQUE: The study was acquired using full field digital technology and interpreted from soft copy. Digital Breast Tomosynthesis (DBT) images were obtained and used to assist in the interpretation of this examination. Current study was also evaluated with a Computer Aided Detection (CAD). Comparison is made to exams dated: 04/12/2023 mammogram, 03/15/2023 mammogram, 02/10/2022 mammogram, 01/07/2022 mammogram, and 12/29/2020 mammogram - [facility]. The right breast is heterogeneously dense, which may obscure small masses. Prior asymmetry is no longer seen in the right breast. The right breast has fibrocystic change. No significant masses, calcifications, or other findings are seen in the breast. DIVISION OF RADIOLOGY Provider, [facility] - 10/25/2023 * * *Final Report* * * DATE OF EXAM: Oct 25 2023 3:48PM [facility] 0629 - VERÓNICA DIAG W JUANA RT / PROCEDURE REASON: Category 3 mammography result with short follow-up interval suggested for probab * * * * Physician Interpretation * * * * RESULT: #[id number] - VERÓNICA MOY W JUANA RT UNILATERAL RIGHT DIGITAL DIAGNOSTIC MAMMOGRAM TOMOSYNTHESIS WITH CAD: 10/25/2023 HISTORY: Category 3 Mammography Result With Short Follow-Up Interval Suggested For Probab / Short term follow up right breast.-Abnormal Mammogram /priors available for comparison. RESULT: TECHNIQUE: The study was acquired using full field digital technology and interpreted from soft copy. Digital Breast Tomosynthesis (DBT) images were obtained and used to assist in the interpretation of this examination. Current study was also evaluated with a Computer Aided Detection (CAD). Comparison is made to exams dated: 04/12/2023 mammogram, 03/15/2023 mammogram, 02/10/2022 mammogram, 01/07/2022 mammogram, and 12/29/2020 mammogram - [facility]. The right breast is heterogeneously dense, which may obscure small masses. Prior asymmetry is no longer seen in the right breast. The right breast has fibrocystic change. No significant masses, calcifications, or other findings are seen in the breast. IMPRESSION IMPRESSION: NEGATIVE There is no mammographic evidence of malignancy. Return to annual mammogram screening schedule is recommended. Shane carpio/andressa:10/25/2023 15:47:38 Assigner(s): RT Pedro(R)(M), [facility] Mammogram BI-RADS: Category 1: Negative Multiple national specialty organizations have released breast cancer screening guidelines for women at average risk for developing breast cancer - guidelines that are based on both evidence and opinion, yet differ on when to start and how often to screen for breast cancer. With representation from Breast Imaging, Internal Medicine, Women's Health, Family Medicine, and Medical/Surgical Oncology, the [facility] has carefully reviewed the data and reached the following consensus: 1) All women should engage in shared decision-making with their providers to decide when to start and how often to screen; 2) All women should have the opportunity to start screening mammography at age 40; 3) For women ages 45-55, we recommend annual screening mammograms; 4) For women ages 55 and over, we support both the transition from an annual to a biennial interval if this aligns more with patient's values and preferences, or continuation with annual screening; 5) All women should discuss with their providers when to stop screening mammograms. Circulating Process Inspector: Andressa Transcribe Date/Time: Oct 25 2023 3:33P Dictated by: SHANE ROWLEY MD This examination was interpreted and the report reviewed and electronically signed by: SHANE ROWLEY MD on Oct 25 2023 3:47PM EST [facility] Radiology Study observation (narrative) [facility] DBT Breast - right diagnosti c for implantOrdered By: [facility] Provider on 10-25-2023 [facility] VERÓNICA DIAG W JUANA RTon 024 VERÓNICA DIAG W JUANA RT * * *Final Report* * * DATE OF EXAM: Oct 25 2023 3:48PM [facility] 0629 - VERÓNICA DIAG W JUANA RT / PROCEDURE REASON: Category 3 mammography result with short follow-up interval suggested for probab * * * * Physician Interpretation * * * * RESULT: #[id number] - VERÓNICA DIAG W JUANA RT UNILATERAL RIGHT DIGITAL DIAGNOSTIC MAMMOGRAM TOMOSYNTHESIS WITH CAD: 10/25/2023 HISTORY: Category 3 Mammography Result With Short Follow-Up Interval Suggested For Probab / Short term follow up right breast.-Abnormal Mammogram /priors available for comparison. RESULT: TECHNIQUE: The study was acquired using full field digital technology and interpreted from soft copy. Digital Breast Tomosynthesis (DBT) images were obtained and used to assist in the interpretation of this examination. Current study was also evaluated with a Computer Aided Detection (CAD). Comparison is made to exams dated: 04/12/2023 mammogram, 03/15/2023 mammogram, 02/10/2022 mammogram, 01/07/2022 mammogram, and 12/29/2020 mammogram - [facility]. The right breast is heterogeneously dense, which may obscure small masses. Prior asymmetry is no longer seen in the right breast. The right breast has fibrocystic change. No significant masses, calcifications, or other findings are seen in the breast. IMPRESSION: NEGATIVE There is no mammographic evidence of malignancy. Return to annual mammogram screening schedule is recommended. Shane carpio/andressa:10/25/2023 15:47:38 Assigner(s): Ken Parker RT(R)(M), [facility] Mammogram BI-RADS: Category 1: Negative Multiple national specialty organizations have released breast cancer screening guidelines for women at average risk for developing breast cancer - guidelines that are based on both evidence and opinion, yet differ on when to start and how often to screen for breast cancer. With representation from Breast Imaging, Internal Medicine, Women's Health, Family Medicine, and Medical/Surgical Oncology, the [facility] has carefully reviewed the data and reached the following consensus: 1) All women should engage in shared decision-making with their providers to decide when to start and how often to screen; 2) All women should have the opportunity to start screening mammography at age 40; 3) For women ages 45-55, we recommend annual screening mammograms; 4) For women ages 55 and over, we support both the transition from an annual to a biennial interval if this aligns more with patient's values and preferences, or continuation with annual screening; 5) All women should discuss with their providers when to stop screening mammograms. Circulating Process Inspector: Andressa Transcribe Date/Time: Oct 25 2023 3:33P Dictated by: SHANE ROWLEY MD This examination was interpreted and the report reviewed and electronically signed by: SHANE ROWLEY MD on Oct 25 2023 3:47PM EST [id number] Normal [facility] Basic Metabolic Profile (BMP )on 10-21-2023 BUN/CRE 21.7 RATIO High 10-20 [facility] Comment on above: Performed By: #### L 500.2500, L501.5200, L506.0400, L501.28978, L501.9520 #### [facility] [address] [place], [address] CA,Total 9.7 mg/dL Normal 8.5-10.1 [facility] Comment on above: Performed By: #### L 500.2500, L501.5200, L506.0400, L501.31933, L501.9520 #### [facility] [address] [place], [address] Chloride [Moles/Vol] 103 mmol/L Normal 98-107 [facility] Comment on above: Performed By: #### L 500.2500, L501.5200, L506.0400, L501.51220, L501.9520 #### [facility] [address] [place], [address] CO2 [Moles/Vol] 28.0 mmol/L Normal 21.0-32.0 [facility] Comment on above: Performed By: #### L 500.2500, L501.5200, L506.0400, L501.61165, L501.9520 #### [facility] [address] [place], [address] Creatinine [Mass/Vol] 0.74 mg/dL Normal 0.55-1.02 [facility] Comment on above: Result Comment: The validity of the calculated GFR GFRAA in patients over 70 years has not been determined. Clinical correlation is essential. Performed By: #### L 500.2500, L501.5200, L506.0400, L501.97858, L501.9520 #### [facility] [address] [place], [address] EST GFR - AA 103 mL/min Normal >60 [facility] Comment on above: Result Comment: Afri can Nigerien GFR Calc Performed By: #### L 500.2500, L501.5200, L506.0400, L501.92303, L501.9520 #### [facility] [address] [place], [address] GAP 6 Normal 5-15 [facility] Comment on above: Performed By: #### L 500.2500, L501.5200, L506.0400, L501.49993, L501.9520 #### [facility] [address] [place], [address] GFR/1.73 sq M.predicted among non-blacks MDRD (S/P/Bld) [Vol rate/Area] 85 mL/min/{1.73_m2} Normal >60 [facility] Comment on above: Result Comment: Non- GFR Calc Performed By: #### L 500.2500, L501.5200, L506.0400, L501.54285, L501.9520 #### [facility] [address] [place], [address] Glucose [Mass/Vol] 97 mg/dL Normal 74-106 [facility] Comment on above: Performed By: #### L 500.2500, L501.5200, L506.0400, L501.07281, L501.9520 #### [facility] [address] [place], [address] Potassium [Moles/Vol] 4.2 mmol/L Normal 3.5-5.1 [facility] Comment on above: Performed By: #### L 500.2500, L501.5200, L506.0400, L501.51891, L501.9520 #### [facility] [address] [place], [address] Sodium [Moles/Vol] 137 mmol/L Normal 136-145 [facility] Comment on above: Performed By: #### L 500.2500, L501.5200, L506.0400, L501.25050, L501.9520 #### [facility] [address] [place], [address] Urea nitrogen [Mass/Vol] 16 mg/dL Normal 7-18 [facility] Comment on above: Performed By: #### L 500.2500, L501.5200, L506.0400, L501.20077, L501.9520 #### [facility] [address] [place], [address] Free T3on 10-21-2023 Free T3 [Mass/Vol] 2.9 pg/mL Normal 2.18-3.98 [facility] Comment on above: Performed By: #### L 500.2500, L501.5200, L506.0400, L501.10141, L501.9520 #### [facility] [address] [place], [address] Magnesiumon 10-21-2023 Magnesium [Mass/Vol] 2.3 mg/dL Normal 1.6-2.6 [facility] Comment on above: Performed By: #### L 500.2500, L501.5200, L506.0400, L501.00870, L501.9520 #### [facility] [address] [place], [address] T4 Free Directon 10-21-2023 T4 FREE DIRECT 1.58 ng/dL High 0.76-1.46 [facility] Comment on above: Performed By: #### L 500.2500, L501.5200, L506.0400, L501.95552, L501.9520 #### [facility] [address] [place], [address] Thyroid Stim Hormone (TSH)on 10-21-2023 TSH 0.11 uIU/mL Low 0.358-3.74 [facility] Comment on above: Performed By: #### L 500.2500, L501.5200, L506.0400, L501.88011, L501.9520 #### [facility] [address] [place], [address] Surgery Specimen Level Doug 07-20-2023 Surgery Specimen Level IV Patient Age/Sex Location Account Attending Physician DAVID YANES 63/F EN [id number] Adrian Campos DO Specimen: [id number] Received: 07/20/23-0753 Status: ELIZABETH Maryanne Num: [id number] Spec Type: COLON BX Subm Dr: Adrian Campos DO HEADER OPERATION: Colonoscopy, open access and polypectomy PRE-OP DIAGNOSIS: Screening TISSUE SUBMITTED: Polyp at ascending colon MICROSCOPIC DIAGNOSIS Ascending colon polyp, polypectomy: Fragments of tubular adenoma. Fragments of fecal material. See comment. / 07/21/2023 COMMENT This specimen predominantly consists of fecal material. Correlation with clinical, endoscopic findings and appropriate follow up are necessary. Case has been reviewed in consultation with Dr. Davidson who concurs with the above diagnosis. IDC:AM MICROSCOPIC DESCRIPTION Slides are reviewed. GROSS DESCRIPTION Received in fixative is one container labeled with the patient's name and designated Polyp at ascending colon. The specimen consists of multiple irregular fragments of osuna soft tissue mixed with fecal material that in aggregate measure 3.0 x 1.5 x 0.2 cm. This specimen predominantly consists of fecal material. The specimen is totally submitted in one cassette. / 07/20/23 TC:1 CPT:07875 Patient Age/Sex Location Account Attending Physician DAVID YANES 63/F EN [id number] Adrian Campos DO Signed (signature on file) Dr. Kilo Koch MD 07/21/23 1311 Normal [facility] Comment on above: Performed By: #### P SUIV #### [facility] Laboratory [facility] Kyara Cramer. [place], [place], [id number] No Panel InformationOrdered By: Marlon Willoughby on 04-21-2023 Free Triiodothyronine (T3) pg/dL 2.4 pg/mL 2.18-3.98 [facility] Serum or plasma thyroid stim ulating hormone (TSH) measurement (units/volume)Ordered By: Marlon Willoughby on 04-21-2023 TSH Qn 7.56 uIU/mL 0.358-3.74 [facility] Thin prep Papanicolaou smear with manual screeningOrdered By: Marlon Willoughby on 04-21-2023 Thin prep Papanicolaou smear with manual screening 1.16 ng/dL 0.76-1.46 [facility] VERÓNICA SCREENING W Pepe 03-15 [facility] Absolute lymphocyte countOrd ered By: Laura Baron on 02-07-2023 Lymphocytes Auto (Unsp spec) [#/Vol] 1.23 10*3/uL 0.83-4.51 [facility] Basophil percentageOrdered B y: Laura Baron on 02-07-2023 Basophils/100 WBC (Bld) 0.6 % 0-1 [facility] Chloride [Moles/Vol] 106 mmol/L 98-107 [facility] Eosinophils/100 WBC (Bld) 0.6 % 0-5 [facility] Glucose [Mass/Vol] 102 mg/dL 74-106 [facility] Comment on above: Fasting Glucose resu lt from 100 to 125 mg/dL suggests IMPAIRED HOMEOSTASIS per A.D.A. criteria. Neutrophils (Bld) [#/Vol] 4.6 10*3/uL 2.0-7.7 [facility] Neutrophils/100 WBC (Bld) 70.4 % 47-70 [facility] Potassium [Moles/Vol] 3.7 mmol/L 3.5-5.1 [facility] Sodium [Moles/Vol] 139 mmol/L 136-145 [facility] WBC (Bld) [#/Vol] 6.5 10*3/uL 4.4-11.0 [facility] Blood erythrocytes count (nu mber/volume)Ordered By: Laura Baron on 02-07-2023 RBC (Bld) [#/Vol] 4.97 10*6/uL 4.2-5.4 [facility] Blood hemoglobin measurement (mass/volume)Ordered By: Laura Baron on 02-07-2023 Hemoglobin (Bld) [Mass/Vol] 15.7 g/dL 12.0-15.0 [facility] Blood lymphocytes/100 leukoc ytesOrdered By: Laura Baron on 02-07-2023 Lymphocytes/100 WBC (Bld) 18.9 % 19-41 [facility] Blood monocytes/100 leukocyt esOrdered By: Laura Baron on 02-07-2023 Monocytes/100 WBC (Bld) 9.2 % 0-10 [facility] Blood platelet mean volumeOr dered By: Laura Baron on 02-07-2023 Platelet mean volume (Bld) [Entitic vol] 9.2 fL 6.2-12.0 [facility] Determination of erythrocyte mean corpuscular volume (MCV)Ordered By: Laura Baron on 02-07-2023 MCV (RBC) [Entitic vol] 93.4 fL 81-99 [facility] Hematocrit Auto (Bld) [Volum e fraction]Ordered By: Laura Baron on 02-07-2023 Hematocrit (Bld) [Volume fraction] 46.4 % 37-47 [facility] Laboratory - Chemistry and C hemistry - challengeOrdered By: Laura Baron on 02-07-2023 CO2 [Moles/Vol] 25.0 mmol/L 21.0-32.0 [facility] Urea nitrogen/Creatinine [Mass ratio] 13.0 mg/mg 10-20 [facility] Laboratory - Drug toxicology Ordered By: Laura Baron on 02-07-2023 Amphetamines Ql (U) Negative <1000 ng/mL [facility] Benzodiazepines Ql (U) Negative < 200 ng/mL [facility] Cannabinoids Screen Ql (U) Negative < 50 ng/mL [facility] Cocaine Ql (U) Negative < 300 ng/mL [facility] Opiates Ql (U) Negative < 300 ng/mL [facility] Laboratory - Hematology and Cell countsOrdered By: Laura Baron on 02-07-2023 Erythrocyte distribution width (RBC) [Entitic vol] 40.9 fL 35.1-43.9 [facility] Erythrocyte distribution width (RBC) [Ratio] 11.9 % 11.6-14.6 [facility] Immature granulocytes/100 WBC (Bld) 0.300 % 0.0-0.9 [facility] Comment on above: IG% - Immature Granu locytes (promyelocytes, myelocytes and metamyelocytes) > 1% indicates that a LEFT SHIFT is Present. MCH (RBC) [Entitic mass] 31.6 pg 27.0-32.0 [facility] Nucleated RBC/100 WBC (Bld) [Ratio] 0 % 0-5 [facility] MCHC Auto (RBC) [Mass/Vol]Or dered By: Laura Baron on 02-07-2023 MCHC (RBC) [Mass/Vol] 33.8 g/dL 32-36 [facility] No Panel InformationOrdered By: Laura Baron on 02-07-2023 Estimated Creatinine Clearance Calc 68.57 ml/min [facility] Estimated GFR (MDRD) Amer 111 mL/min >60 [facility] Comment on above: GFR Calc Estimated GFR (MDRD) Non-Af Amer 92 mL/min >60 [facility] Comment on above: Non- GFR Calc Ethyl Alcohol Level < 3.0 mg/dL [facility] Comment on above: The serum:whole bloo d ethanol ratio is approximately 1.14and varies slightly with hematocrit. Medical Alcohol reference interval and critical value innon-tolerant individuals; 50 - 100 Impairment 100 Intoxication 100 - 250 Severe Poisoning 250 - 400 Deep/possible fatal coma MDMA (Ecstasy) Screen Negative < 500 ng/mL [facility] Urine Barbiturates Screen Negative < 200 ng/mL [facility] Urine Drug Screen Comment [facility] Comment on above: CONFIRMATORY TESTING FOR ALL POSITIVE URINE DRUG SCREENRESULTS WILL ONLY BE SENT OUT UPON PHYSICIAN ORDER. VISTA Urine Drug Screen methods provide only preliminaryanalytical test results. A more specific alternate chemicalmethod must be used in order to obtain a confirmedanalytical result. Gas chromatography/mass spectrometery(GC/MS) is the preferred confirmatory method. Clinicalconsideration and professional judgement should be appliedto any drug of abuse test result, particularly whenpreliminary positive results are used. URINE TCA TESTING MUST BE ORDERED SEPARATELY. USE TESTMNEMONIC: [facility] Urine Methadone Screen Negative < 300 ng/mL [facility] Platelets bldOrdered By: Pacheco Baron on 02-07-2023 Platelets (Bld) [#/Vol] 275 10*3/uL 150-450 [facility] Serum or plasma calcium connie urement (mass/volume)Ordered By: Laura Baron on 02-07-2023 Calcium [Mass/Vol] 9.9 mg/dL 8.5-10.1 [facility] Serum or plasma creatinine m easurement (mass/volume)Ordered By: Laura Baron on 02-07-2023 Creatinine [Mass/Vol] 0.69 mg/dL 0.55-1.02 [facility] Comment on above: The validity of the calculated GFR & GFRAA in patients over 70 years has not been determined. Clinical correlation is essential. Serum or plasma urea nitroge n measurement (mass/volume)Ordered By: Laura Baron on 02-07-2023 Urea nitrogen [Mass/Vol] 9 mg/dL 7-18 [facility] Thin prep Papanicolaou smear with manual screeningOrdered By: Laura Baron on 02-07-2023 Thin prep Papanicolaou smear with manual screening 8 5-15 [facility] Urine phencyclidine (PCP) de tectionOrdered By: Laura Baron on 02-07-2023 Phencyclidine Ql (U) Negative < 25 ng/mL [facility] Laboratory - Chemistry and C hemistry - challengeOrdered By: Marlon Willoughby on 01-31-2023 Free T4 [Mass/Vol] 1.17 ng/dL 0.76-1.46 [facility] No Panel InformationOrdered By: Marlon Willoughby on 01-31-2023 Free Triiodothyronine (T3) pg/dL 2.6 pg/mL 2.18-3.98 [facility] Thyroid Stimulating Hormone (TSH) 8.45 uIU/mL 0.358-3.74 [facility] Basophil percentageOrdered B y: Marlon Willoughby on 11-25-2022 Cholesterol [Mass/Vol] 237 mg/dL <200 [facility] Comment on above: <200 mg/dL Desirable 200-240 mg/dL Borderline >240 mg/dL High Risk Triglyceride [Mass/Vol] 91 mg/dL <199 [facility] Comment on above: The drugs N-Acetylcy steine and Metamizole may falsely depress this assay.Serum Triglycerides Reference Interval Normal <150 mg/dL Borderline high 150 - 199 mg/dL High 200 - 499 mg/dL Very High > or = 500 mg/dL Laboratory - Chemistry and C hemistry - challengeOrdered By: Marlon Willoughby on 11-25-2022 Free T4 [Mass/Vol] 1.31 ng/dL 0.76-1.46 [facility] No Panel InformationOrdered By: Marlon Willoughby on 11-25-2022 Free Triiodothyronine (T3) pg/dL 2.4 pg/mL 2.18-3.98 [facility] Thyroid Stimulating Hormone (TSH) 6.69 uIU/mL 0.358-3.74 [facility] Serum or plasma cholesterol in HDL measurement (mass/volume)Ordered By: Marlon Willoughby on 11-25-2022 Cholesterol in HDL [Mass/Vol] 73 mg/dL >40 [facility] Comment on above: The drugs N-Acetylcy steine and Metamizole may falsely depress this assay. Reference Range HDL <40 mg/dL Low HDL Cholesterol HDL >or= 60 mg/dL High HDL Cholesterol Serum or plasma cholesterol in VLDL measurement (mass/volume)Ordered By: Marlon Willoughby on 11-25-2022 Cholesterol in VLDL [Mass/Vol] 18 mg/dL 5-40 [facility] Serum or plasma low density lipoprotein (LDL) cholesterol measurement (mass/volume)Ordered By: Marlon Willoughby on 11-25-2022 Cholesterol in LDL [Mass/Vol] 146 mg/dL 0-130 [facility] Basophil percentageOrdered B y: Dr. Willoughby on 06-11-2022 Bilirubin [Mass/Vol] 0.50 mg/dL 0.20-1.00 [facility] Comment on above: For patients on eltr ombopag therapy, use of Dimension [place] TBIL is not recommended. Chloride [Moles/Vol] 105 mmol/L 98-107 [facility] Cholesterol [Mass/Vol] 256 mg/dL <200 [facility] Comment on above: <200 mg/dL Desirable 200-240 mg/dL Borderline >240 mg/dL High Risk Glucose [Mass/Vol] 103 mg/dL 74-106 [facility] Comment on above: Fasting Glucose resu lt from 100 to 125 mg/dL suggests IMPAIRED HOMEOSTASIS per A.D.A. criteria. Potassium [Moles/Vol] 4.3 mmol/L 3.5-5.1 [facility] Protein [Mass/Vol] 7.6 g/dL 6.4-8.2 [facility] Sodium [Moles/Vol] 138 mmol/L 136-145 [facility] Triglyceride [Mass/Vol] 150 mg/dL <199 [facility] Comment on above: The drugs N-Acetylcy steine and Metamizole may falsely depress this assay.Serum Triglycerides Reference Interval Normal <150 mg/dL Borderline high 150 - 199 mg/dL High 200 - 499 mg/dL Very High > or = 500 mg/dL Laboratory - Chemistry and C hemistry - challengeOrdered By: Dr. Willoughby on 06-11-2022 ALP [Catalytic activity/Vol] 83 U/L 45-117 [facility] ALT [Catalytic activity/Vol] 47 U/L 13-56 [facility] CO2 [Moles/Vol] 27.0 mmol/L 21.0-32.0 [facility] Globulin (S) [Mass/Vol] 3.8 g/dL 2.2-4.2 [facility] Urea nitrogen/Creatinine [Mass ratio] 25.8 mg/mg 10-20 [facility] No Panel InformationOrdered By: Dr. Willoughby on 06-11-2022 Estimated GFR (MDRD) Amer 92 mL/min >60 [facility] Comment on above: GFR Calc Estimated GFR (MDRD) Non-Af Amer 76 mL/min >60 [facility] Comment on above: Non- GFR Calc Thyroid Stimulating Hormone (TSH) 3.91 uIU/mL 0.358-3.74 [facility] Urine Microalbumin/Creatini ne Ratio 7.8 mg/g CRE <30 [facility] Serum or plasma albumin connie urement (mass/volume)Ordered By: Dr. Willoughby on 06-11-2022 Albumin [Mass/Vol] 3.8 g/dL 3.2-5.0 [facility] Serum or plasma albumin/glob ulin mass ratioOrdered By: Dr. Willoughby on 06-11-2022 Albumin/Globulin [Mass ratio] 1.0 {ratio} 0.9-2.4 [facility] Serum or plasma calcium connie urement (mass/volume)Ordered By: Dr. Willoughby on 06-11-2022 Calcium [Mass/Vol] 9.4 mg/dL 8.5-10.1 [facility] Serum or plasma cholesterol in HDL measurement (mass/volume)Ordered By: Dr. Willoughby on 06-11-2022 Cholesterol in HDL [Mass/Vol] 65 mg/dL >40 [facility] Comment on above: The drugs N-Acetylcy steine and Metamizole may falsely depress this assay. Reference Range HDL <40 mg/dL Low HDL Cholesterol HDL >or= 60 mg/dL High HDL Cholesterol Serum or plasma cholesterol in VLDL measurement (mass/volume)Ordered By: Dr. Willoughby on 06-11-2022 Cholesterol in VLDL [Mass/Vol] 30 mg/dL 5-40 [facility] Serum or plasma creatinine m easurement (mass/volume)Ordered By: Dr. Willoughby on 06-11-2022 Creatinine [Mass/Vol] 0.82 mg/dL 0.55-1.02 [facility] Comment on above: The validity of the calculated GFR & GFRAA in patients over 70 years has not been determined. Clinical correlation is essential. Serum or plasma ferritin lexi surement (mass/volume)Ordered By: Dr. Willoughby on 06-11-2022 Ferritin [Mass/Vol] 160 ng/mL 8-252 [facility] Serum or plasma low density lipoprotein (LDL) cholesterol measurement (mass/volume)Ordered By: Dr. Willoughby on 06-11-2022 Cholesterol in LDL [Mass/Vol] 161 mg/dL 0-130 [facility] Serum or plasma urea nitroge n measurement (mass/volume)Ordered By: Dr. Willoughby on 06-11-2022 Urea nitrogen [Mass/Vol] 21 mg/dL 7-18 [facility] Thin prep Papanicolaou smear with manual screeningOrdered By: Dr. Willoughby on 06-11-2022 Thin prep Papanicolaou smear with manual screening 26 U/L 15-37 [facility] Thin prep Papanicolaou smear with manual screening 6 5-15 [facility] Thin prep Papanicolaou smear with manual screening 11.3 mg/L NO RANGE EST. [facility] Urine creatinine measurement (mass/volume)Ordered By: Dr. Willoughby on 06-11-2022 Creatinine (U) [Mass/Vol] 144.00 mg/dL NO RANGE EST. [facility] VERÓNICA MOY W JUANA LTon 022 [facility] Absolute lymphocyte counton 07-21-2021 Lymphocytes Auto (Unsp spec) [#/Vol] 1.07 10*3/uL 0.83-4.51 [facility] Work Phone: Basophil percentageon 2021 Basophils/100 WBC (Bld) 0.6 % 0-1 [facility] Work Phone: Bilirubin [Mass/Vol] 0.40 mg/dL 0.20-1.00 [facility] Work Phone: Comment on above: For patients on eltr ombopag therapy, use of Dimension [place] TBIL is not recommended. Chloride [Moles/Vol] 105 mmol/L 98-107 [facility] Work Phone: Cholesterol [Mass/Vol] 238 mg/dL <200 [facility] Work Phone: [phone] Comment on above: <200 mg/dL Desirable 200-240 mg/dL Borderline >240 mg/dL High Risk Eosinophils/100 WBC (Bld) 2.1 % 0-5 [facility] Work Phone: Glucose [Mass/Vol] 96 mg/dL 74-106 [facility] Work Phone: [phone] Neutrophils (Bld) [#/Vol] 3.2 10*3/uL 2.0-7.7 [facility] Work Phone: Neutrophils/100 WBC (Bld) 66.9 % 47-70 [facility] Work Phone: Potassium [Moles/Vol] 4.2 mmol/L 3.5-5.1 [facility] Work Phone: Protein [Mass/Vol] 8.5 g/dL 6.4-8.2 [facility] Work Phone: Sodium [Moles/Vol] 138 mmol/L 136-145 [facility] Work Phone: [phone] Triglyceride [Mass/Vol] 147 mg/dL [facility] Work Phone: Comment on above: The drugs N-Acetylcy steine and Metamizole may falsely depress this assay.Serum Triglycerides Reference Interval Normal <150 mg/dL Borderline high 150 - 199 mg/dL High 200 - 499 mg/dL Very High > or = 500 mg/dL WBC (Bld) [#/Vol] 4.8 10*3/uL 4.4-11.0 [facility] Work Phone: Blood erythrocytes count (nu mber/volume)on 07-21-2021 RBC (Bld) [#/Vol] 4.96 10*6/uL 4.2-5.4 [facility] Work Phone: Blood hemoglobin measurement (mass/volume)on 07-21-2021 Hemoglobin (Bld) [Mass/Vol] 10.8 g/dL 12.0-15.0 [facility] Work Phone: Blood lymphocytes/100 leukoc yteson 07-21-2021 Lymphocytes/100 WBC (Bld) 22.3 % 19-41 [facility] Work Phone: Blood monocytes/100 leukocyt eson 07-21-2021 Monocytes/100 WBC (Bld) 7.9 % 0-10 [facility] Work Phone: Blood platelet mean volumeon 07-21-2021 Platelet mean volume (Bld) [Entitic vol] 9.5 fL 6.2-12.0 [facility] Work Phone: Determination of erythrocyte mean corpuscular volume (MCV)on 07-21-2021 MCV (RBC) [Entitic vol] 72.6 fL 81-99 [facility] Work Phone: Hematocrit Auto (Bld) [Volum e fraction]on 07-21-2021 Hematocrit (Bld) [Volume fraction] 36.0 % 37-47 [facility] Work Phone: Iron measurement (mass/mass) on 07-21-2021 Iron (Unsp spec) [Mass/Mass] 30 ug/dL 50-170 [facility] Work Phone: Laboratory - Chemistry and C hemistry - challengeon 07-21-2021 ALP [Catalytic activity/Vol] 107 U/L 45-117 [facility] Work Phone: ALT [Catalytic activity/Vol] 49 U/L 13-56 [facility] Work Phone: CO2 [Moles/Vol] 25.0 mmol/L 21.0-32.0 [facility] Work Phone: Globulin (S) [Mass/Vol] 4.5 g/dL 2.2-4.2 [facility] Work Phone: Magnesium [Mass/Vol] 2.5 mg/dL 1.6-2.6 [facility] Work Phone: Urea nitrogen/Creatinine [Mass ratio] 16.9 mg/mg 10-20 [facility] Work Phone: Laboratory - Hematology and Cell countson 07-21-2021 Erythrocyte distribution width (RBC) [Entitic vol] 45.8 fL 35.1-43.9 [facility] Work Phone: Erythrocyte distribution width (RBC) [Ratio] 17.6 % 11.6-14.6 [facility] Work Phone: Immature granulocytes/100 WBC (Bld) 0.200 % 0.0-0.9 [facility] Work Phone: Comment on above: IG% - Immature Granu locytes (promyelocytes, myelocytes and metamyelocytes) > 1% indicates that a LEFT SHIFT is Present. MCH (RBC) [Entitic mass] 21.8 pg 27.0-32.0 [facility] Work Phone: Nucleated RBC/100 WBC (Bld) [Ratio] 0 % 0-5 [facility] Work Phone: MCHC Auto (RBC) [Mass/Vol]on 07-21-2021 MCHC (RBC) [Mass/Vol] 30.0 g/dL 32-36 [facility] Work Phone: No Panel Informationon 07-21 Urine Microalbumin/Creatini ne Ratio 7.5 mg/g CRE <30 [facility] Work Phone: Estimated GFR (MDRD) Amer 84 mL/min >60 [facility] Work Phone: Comment on above: GFR Calc Estimated GFR (MDRD) Non-Af Amer 69 mL/min >60 [facility] Work Phone: Comment on above: Non- GFR Calc Thyroid Stimulating Hormone (TSH) 0.52 uIU/mL 0.358-3.74 [facility] Work Phone: Total Iron Binding Capacity 496 ug/dL 250-450 [facility] Work Phone: Platelets bldon 07-21-2021 Platelets (Bld) [#/Vol] 442 10*3/uL 150-450 [facility] Work Phone: Serum or plasma albumin connie urement (mass/volume)on 07-21-2021 Albumin [Mass/Vol] 4.0 g/dL 3.2-5.0 [facility] Work Phone: Serum or plasma albumin/glob ulin mass ratioon 07-21-2021 Albumin/Globulin [Mass ratio] 0.9 {ratio} 0.9-2.4 [facility] Work Phone: Serum or plasma calcium connie urement (mass/volume)on 07-21-2021 Calcium [Mass/Vol] 9.1 mg/dL 8.5-10.1 [facility] Work Phone: Serum or plasma cholesterol in HDL measurement (mass/volume)on 07-21-2021 Cholesterol in HDL [Mass/Vol] 61 mg/dL [facility] Work Phone: Comment on above: The drugs N-Acetylcy steine and Metamizole may falsely depress this assay. Reference Range HDL <40 mg/dL Low HDL Cholesterol HDL >or= 60 mg/dL High HDL Cholesterol Serum or plasma cholesterol in VLDL measurement (mass/volume)on 07-21-2021 Cholesterol in VLDL [Mass/Vol] 29 mg/dL 5-40 [facility] Work Phone: Serum or plasma creatinine m easurement (mass/volume)on 07-21-2021 Creatinine [Mass/Vol] 0.88 mg/dL 0.55-1.02 [facility] Work Phone: Comment on above: The validity of the calculated GFR & GFRAA in patients over 70 years has not been determined. Clinical correlation is essential. Serum or plasma ferritin lexi surement (mass/volume)on 07-21-2021 Ferritin [Mass/Vol] 11 ng/mL 8-252 [facility] Work Phone: Serum or plasma iron saturat ion measurement (mass fraction)on 07-21-2021 Iron saturation [Mass fraction] 6.0 % 15.0-55.0 [facility] Work Phone: Serum or plasma low density lipoprotein (LDL) cholesterol measurement (mass/volume)on 07-21-2021 Cholesterol in LDL [Mass/Vol] 148 mg/dL 0-130 [facility] Work Phone: Serum or plasma urea nitroge n measurement (mass/volume)on 07-21-2021 Urea nitrogen [Mass/Vol] 15 mg/dL 7-18 [facility] Work Phone: Thin prep Papanicolaou smear with manual screeningon 07-21-2021 Thin prep Papanicolaou smear with manual screening 14.7 mg/L NO RANGE EST. [facility] Work Phone: Thin prep Papanicolaou smear with manual screening 25 U/L 15-37 [facility] Work Phone: Thin prep Papanicolaou smear with manual screening 8 5-15 [facility] Work Phone: Urine creatinine measurement (mass/volume)on 07-21-2021 Creatinine (U) [Mass/Vol] 197.00 mg/dL NO RANGE EST. [facility] Work Phone: Stool Helicobacter pylori an tigen detection by immunoassayon 05-05-2021 H. pylori Ag IA Ql (Stl) Negative Negative [facility] Work Phone: Comment on above: Performed at: [address] [id number] Director: Juancho Parsons MD, Phone: [phone] Culture, urineon 04-06-2021 Bacteria identified Cx Nom (U) Klebsiella pneumoniae sp pneum [facility] Work Phone: Vital Signs Date Time Vital Sign Value Performing Clinician Mayelai krunal 05-01-2024 12:24-0500 Body height 157.5 cm Katrina Kendrick MD Work Phone: [facility] 05-01-2024 12:24-0500 Body mass index (BMI) [Ratio] 25.06 kg/m2 Katrina Kendrick MD Work Phone: [facility] 05-01-2024 12:24-0500 Body weight 62.14 kg Katrina Kendrick MD Work Phone: [facility] 05-01-2024 12:24-0500 Diastolic blood pressure 86 mm[Hg] Katrina Kendrick MD Work Phone: [facility] 05-01-2024 12:24-0500 Systolic blood pressure 126 mm[Hg] Katrina Kendrick MD Work Phone: [facility] 07-20-2023 07:30-0400 Body temperature 97.6 [degF] Dr. Marlon Willoughby Work Phone: [facility] 07-20-2023 07:30-0400 Diastolic blood pressure 71 mm[Hg] Dr. Marlon Willoughby Work Phone: [facility] 07-20-2023 07:30-0400 Heart rate 71 /min Dr. Marlon Willoughby Work Phone: [facility] 07-20-2023 07:30-0400 Respiratory rate 16 /min Dr. Marlon Willoughby Work Phone: [facility] 07-20-2023 07:30-0400 SaO2% (BldA) [Mass fraction] 100 % Dr. Marlon Willoughby Work Phone: [facility] 07-20-2023 07:30-0400 Systolic blood pressure 118 mm[Hg] Dr. Marlon Willoughby Work Phone: [facility] 07-20-2023 05:47-0400 Body height 157.[address] Marlon Willoughby Work Phone: [facility] 07-20-2023 05:47-0400 Body mass index (BMI) [Ratio] 23.9 kg/m2 Dr. Marlon Willoughby Work Phone: [facility] 07-20-2023 05:47-0400 Body weight 59.[address] Marlon Willoughby Work Phone: [facility] 05-05-2023 09:33-0500 Body mass index (BMI) [Ratio] 24.1 kg/m2 Dr. Marlon Willoughby Work Phone: [facility] 05-05-2023 09:33-0500 Body weight 59.[address] Marlon Willoughby Work Phone: [facility] 02-07-2023 22:35-0500 Diastolic blood pressure 75 mm[Hg] [facility] 02-07-2023 22:35-0500 Heart rate 90 /min [facility] 02-07-2023 22:35-0500 Respiratory rate 16 /min [facility] 02-07-2023 22:35-0500 SaO2% (BldA) [Mass fraction] 99 % [facility] 02-07-2023 22:35-0500 Systolic blood pressure 125 mm[Hg] [facility] 02-07-2023 18:36-0500 Body height 157.48 cm [facility] 02-07-2023 18:36-0500 Body mass index (BMI) [Ratio] 23.6 kg/m2 [facility] 02-07-2023 18:36-0500 Body temperature 97.9 [degF] [facility] 02-07-2023 18:36-0500 Body weight 58.51 kg [facility] 02-19-2022 14:04-0500 Body height 157.5 cm Katrina Kendrick MD Work Phone: [facility] 02-19-2022 14:04-0500 Body weight 60.51 kg Katrina Kendrick MD Work Phone: [facility] 02-19-2022 14:04-0500 Diastolic blood pressure 82 mm[Hg] Katrina Kendrick MD Work Phone: [facility] 02-19-2022 14:04-0500 Systolic blood pressure 124 mm[Hg] Katrina Kendrick MD Work Phone: [facility] Encounters Encounter Date Encounter Type Care Provider Facility Start: 05-21-2024 Encounter for other preprocedural examination Marlon Willoughby [facility] Start: 05-07-2024 End: 05-07-2024 ambulatory Marlon Willoughby Facility:[facility] Start: 05-01-2024 End: 05-01-2024 ambulatory KATRINA KENDRICK Facility:[facility] Start: 05-01-2024 End: 05-01-2024 Patient encounter procedure Katrina Kendrick MD Work Phone: OB/Gynecology Comment on above: Encounter for gyneco logical examination (general) (routine) without abnormal findings (Primary Dx); Encounter for screening mammogram for breast cancer Start: 05-01-2024 End: 05-01-2024 Patient encounter status Katrina Kendrick MD Work Phone: [facility] Start: 04-02-2024 End: 04-02-2024 ambulatory KATRINA KENDRICK Facility:[facility] Start: 04-02-2024 End: 04-02-2024 Subsequent hospital visit by physician [facility] Comment on above: Encounter for screen ing mammogram for malignant neoplasm of breast [Z12.31] Start: 03-14-2024 End: 03-14-2024 ambulatory Marlon Willoughby Facility:[facility] Start: 12-29-2023 End: 12-29-2023 ambulatory Marlon Willoughby Facility:[facility] Start: 10-25-2023 End: 10-25-2023 ambulatory KATRINA KENDRICK Facility:[facility] Start: 10-25-2023 End: 10-25-2023 Subsequent hospital visit by physician [facility] Start: 10-21-2023 End: 10-21-2023 ambulatory Marlon Willoughby Facility:[facility] Start: 07-20-2023 ambulatory Marlon Willoughby Facility:[facility] Start: 07-20-2023 Non-patient / Non-visit Dr. Mahesh Willoughby Work Phone: [facility] Start: 07-20-2023 End: 07-20-2023 Admission to same day surgery center Dr. Marlon Willoughby Work Phone: [facility] Work Phone: Start: 07-20-2023 End: 07-20-[address] Marlon Willoughby Work Phone: [facility] Work Phone: Start: 05-05-2023 Non-patient / Non-visit Dr. Mahesh Willoughby Work Phone: [facility] Work Phone: Start: 04-21-2023 End: 04-21-2023 ambulatory [facility] Work Phone: Start: 04-21-2023 End: 04-21-2023 Patient encounter procedure [facility] Start: 04-12-2023 Telephone encounter Katrina velasquez MD Work Phone: OB/Gynecology Comment on above: Orders Start: 03-16-2023 Documentation procedure Mammog shelly Coordinator [facility] Start: 03-16-2023 Letter encounter Mammography Coordinator [facility] Department Start: 03-16-2023 Telephone encounter Katrina velasquez MD Work Phone: OB/Gynecology Comment on above: Orders Start: 03-15-2023 End: 03-15-2023 Subsequent hospital visit by physician [facility] Comment on above: Encounter for screen ing mammogram for malignant neoplasm of breast [Z12.31] Start: 02-07-2023 End: 02-08-2023 [facility]: Start: 01-31-2023 End: 01-31-2023 ambulatory [facility] Work Phone: Start: 01-31-2023 End: 01-31-2023 Patient encounter procedure [facility] Start: 11-25-2022 End: 11-25-2022 ambulatory [facility] Work Phone: Start: 11-25-2022 End: 11-25-2022 Patient encounter procedure [facility] Start: 06-11-2022 End: 06-11-2022 ambulatory [facility] Work Phone: Start: 06-11-2022 End: 06-11-2022 Patient encounter procedure [facility] Start: 02-19-2022 End: 02-19-2022 Patient encounter procedure Katrina Kendrick MD Work Phone: OB/Gynecology Comment on above: Encounter for gyneco logical examination without abnormal finding (Primary Dx); Encounter for screening mammogram for malignant neoplasm of breast; Dense breasts Start: 02-19-2022 End: 02-19-2022 Patient encounter status Katrina Kendrick MD Work Phone: OB/Gynecology Start: 02-10-2022 End: 02-10-2022 Subsequent hospital visit by physician [facility] Start: 01-08-2022 Documentation procedure Mammog shelly Coordinator [facility] Start: 01-08-2022 Letter encounter Mammography Coordinator [facility] Department Start: 01-08-2022 Telephone encounter [facility] MACHINIST MATE.CREATIVE DESIGNER Work Phone: OB/Gynecology Comment on above: Orders Mammogram Result Kyle l Back Start: 07-21-2021 End: 07-21-2021 Patient encounter procedure [facility] Start: 05-05-2021 End: 05-05-2021 Patient encounter procedure [facility], Specimen Start: 04-06-2021 End: 04-06-2021 [facility] Procedures Date Procedure Procedure Detail Performing Clinician Start: 10-25-2023 Digital breast tomosynthesis unilateral Katrina Kendrick MD Work Phone: Start: 07-20-[address] Marlon quintero Work Phone: Start: 03-15-2023 Screening digital br east tomosynthesis bi Katrina Kendrick MD Work Phone: Start: 02-10-2022 VERÓNICA DIAG W JUANA LEFT Re nee Bin MACHINIST MATE.CREATIVE DESIGNER Work Phone: Start: 01-07-2022 Mammography Rosalind [facility] rosie MACHINIST MATE.CREATIVE DESIGNER Work Phone: Start: 04-06-2021 Urine culture Start: 10-02-2014 Colonoscopy Rosalind [facility] correction MACHINIST MATE.CREATIVE DESIGNER Work Phone: Start: 08-02-2010 Lipid 1996 panel - S junito or Plasma Diagnostic Wstr Plan of Treatment Date Care Activity Detail Author Start: 2037 RSV Vaccine (1 - 1-d ose 75+ series) RSV Vaccine (1 - 1-dose 75+ series) [facility] Start: 02-19-2029 Urine microalbumin profile DTaP,Tdap,Td Vaccine (2 - Td or Tdap) [facility] Start: 01-20-2026 HPV TESTING HPV TESTING [facility] Start: 01-20-2026 PAP TESTING PAP TESTING [facility] Start: 01-20-2026 Screening for malign ant neoplasm of cervix [facility] Start: 05-02-2025 End: 05-02-2025 Patient encounter procedure Mammogram Comment on above: Encounter for screen ing mammogram for breast cancer [Z12.31] Annual Start: 04-02-2025 Screening for malign ant neoplasm of breast Mammogram Screening [facility] Start: 05-01-2024 End: 05-01-2024 Patient encounter procedure 05/01/2024 3:40 PM EST Office Visit OB/Gynecology [address] [place], [place] [id number] Katrina Kendrick MD [address] [place], [place] [id number] ANNUAL OB/Gynecology Comment on above: ANNUAL Start: 04-27-2024 End: 04-27-2024 Patient encounter procedure 04/27/2024 1:20 PM EST Office Visit OB/Gynecology [address] [place], [place] [id number] Katrina Kendrick MD [address] [place] [address] ANNUAL OB/Gynecology Comment on above: ANNUAL Start: 03-15-2024 Screening for malign ant neoplasm of breast Mammogram Screening [facility] Start: 12-04-2023 Covid-19 Vaccine ( season) Covid-19 Vaccine () [facility] Start: 12-04-2023 Influenza vaccination Influenza Vacc ine (#1) [facility] Start: 07-20-2023 Patient discharge [facility] Start: 04-04-2023 [facility] Start: 04-04-2023 zzBehavioral Health Screening zzBehavioral Health Screening [facility] Start: 02-08-2023 [facility] Start: 02-07-2023 Consultation [facility] Start: 02-07-2023 Suicide precautions [facility] Start: 01-07-2023 Mammography [facility] Start: 12-03-2022 Covid-19 Vaccine ( season) Covid-19 Vaccine ( season) [facility] Start: 12-03-2022 Influenza vaccination Influenza Vacc ine (#1) [facility] Start: 04-04-2022 [facility] Start: 2022 RSV Vaccine (1 - 1-d ose 60+ series) RSV Vaccine (1 - 1-dose 60+ series) [facility] Start: 12-03-2021 Influenza vaccination INFLUENZA (#1) [facility] Start: 04-04-2021 DEPRESSION ASSESSMENT [facility] Start: 10-03-2015 Colonoscopy COLONOSCOPY [facility] Start: 10-03-2015 COLORECTAL CANCER SCREENING COLORECTAL CANCER SCREENING [facility] Start: 10-03-2015 Screening for malign ant neoplasm of colon [facility] Start: 08-03-2015 Lipid 1996 panel - S junito or Plasma Lipid Screening [facility] Start: 08-03-2015 Lipid panel Lipid Screening [facility] Start: 08-03-2015 LIPID SCREEN LIPID SCREEN [facility] Start: 02-19-2012 Pneumococcal Vaccine : 50+ (1 of 1 - PCV) Pneumococcal Vaccine: 50+ (1 of 1 - PCV) [facility] Start: 02-19-2012 SHINGRIX VACCINE (1 of 2) SHINGRIX VACCINE (1 of 2) [facility] Start: 2007 COLOGUARD (FIT-DNA) COLOGUARD (FIT-D NA) [facility] Start: [address] COLONOGRAPHY [facility] Start: 2007 DIABETES SCREEN DIABETES SCREEN [facility] Start: 2007 Diabetes Screening Diabetes Screenin g [facility] Start: 2007 FECAL OCCULT BLOOD FECAL OCCULT BLOO D [facility] Start: 2007 Screening for malign ant neoplasm of colon [facility] Start: 2007 SIGMOIDOSCOPY SIGMOIDOSCOPY [facility] Start: 1981 Urine microalbumin profile DTAP,TDAP,TD (1 - Tdap) [facility] Start: 02-19-1980 ANNUAL PCP TEAM FAST FOOD CREW MEMBER PACHECO DISEASE VISIT ANNUAL PCP TEAM CHRONIC DISEASE VISIT [facility] Start: 02-19-1980 Anxiety Screening Anxiety Screening [facility] Start: 02-19-1980 Depression Screening Depression Scre ening [facility] Start: 02-19-1980 HEPATITIS C SCREENING HEPATITIS C [facility] Start: 02-19-1980 Hepatitis C screening Hepatitis C [facility] Start: 02-19-1980 HIV SCREENING HIV SCREENING [facility] Start: 02-19-1980 HIV screening HIV Screening [facility] Start: 1960 COVID-19 VACCINE (#1) COVID-19 VACCI NE (#1) [facility] Colonoscopy [facility] DBT Breast - bilater al screening VERÓNICA SCREENING W JUANA Radiology Routine Encounter for screening mammogram for malignant neoplasm of breast 04/02/2024 3:04 PM EST [facility] Work Phone: End: 05-31-2025 DBT Breast - bilateral screening VERÓNICA SCREENING W JUANA Radiology Routine Encounter for gynecological examination (general) (routine) without abnormal findings Encounter for screening mammogram for breast cancer 1 Occurrences starting 05/01/2024 until 05/31/2025 [facility] Work Phone: Comment on above: 1 Occurrences starti ng 05/01/2024 until 05/31/2025 End: 02-07-2023 Diagnostic mammography computer-aided detcj uni VERÓNICA DIAGNOSTIC LT Radiology Routine Abnormal mammogram 1 Occurrences starting 01/08/2022 until 02/07/2023 [facility] Work Phone: Comment on above: 1 Occurrences starti ng 01/08/2022 until 02/07/2023 End: 04-14-2024 VERÓNICA DIAGNOSTIC RIGHT VERÓNICA DIAGNOSTIC RIGHT Radiology Routine Abnormal mammogram 1 Occurrences starting 03/17/2023 until 04/14/2024 [facility] Work Phone: Comment on above: 1 Occurrences starti ng 03/17/2023 until 04/14/2024 End: 05-11-2024 VERÓNICA DIAGNOSTIC RIGHT VERÓNICA DIAGNOSTIC RIGHT Radiology Routine Category 3 mammography result with short follow-up interval suggested for probably benign finding 1 Occurrences starting 04/12/2023 until 05/11/2024 [facility] Work Phone: Comment on above: 1 Occurrences starti ng 04/12/2023 until 05/11/2024 End: 03-21-2023 VERÓNICA SCREENING W JUANA VERÓNICA SCREENING W JUANA Radiology Routine Encounter for screening mammogram for malignant neoplasm of breast Dense breasts 1 Occurrences starting 02/19/2022 until 03/21/2023 [facility] Work Phone: Comment on above: 1 Occurrences starti ng 02/19/2022 until 03/21/2023 Patient Education ED Depression [facility] Work Phone: Patient referral [facility] Work Phone: End: 04-14-2024 US BREAST LTD RIGHT US BREAST LTD RIGHT Radiology Routine Abnormal mammogram 1 Occurrences starting 03/17/2023 until 04/14/2024 [facility] Work Phone: Comment on above: 1 Occurrences starti ng 03/17/2023 until 04/14/2024 End: 05-11-2024 US BREAST LTD RIGHT US BREAST LTD RIGHT Radiology Routine Category 3 mammography result with short follow-up interval suggested for probably benign finding 1 Occurrences starting 04/12/2023 until 05/11/2024 [facility] Work Phone: Comment on above: 1 Occurrences starti ng 04/12/2023 until 05/11/2024 End: 02-07-2023 Us breast uni real time with image limited US BREAST LTD LT Radiology Routine Abnormal mammogram 1 Occurrences starting 01/08/2022 until 02/07/2023 [facility] Work Phone: Comment on above: 1 Occurrences starti ng 01/08/2022 until 02/07/2023 [facility] Payers Date Payer Category Payer Self-pay [id number] 2018 Unknown [id number] 2018 Unknown [id number] Unknown [id number] Unknown [id number] Unknown [id number] Unknown [id number] Unknown [id number] Unknown [id number] Social History Date Type Detail Facility Start: 04-28-2018 End: 07-14-2023 Tobacco smoking status [facility] Unknown if ever smoked [facility] Start: 04-28-2018 Non-smoker [facility] Start: 1960 Sex Assigned At Female C [facility] Start: 05-17-2011 End: 02-19-2022 Tobacco smoking status W[place]IS Never smoked tobacco [facility] Start: 05-17-2011 End: 02-19-2022 Tobacco use and exposure Smokeless tobacco non-user [facility] Start: 01-20-2021 End: 05-01-2024 Alcohol intake Current drinker of alcohol (finding) [facility] Start: 12-06-2021 End: 02-10-2022 Exposure to SARS-CoV-2 (event) Not sure [facility] Work Phone: Start: 01-20-2021 End: 03-15-2023 History of Social function [facility] Start: 01-20-2021 End: 03-15-2023 Tobacco use panel [facility] National Score (1-10 0), lower number is lower risk Not on file [facility] Start: 12-27-2019 Gender identity Identifies as female gender (finding) [facility] Start: 12-27-2019 Sexual orientation Heterosexual (clarence carrizales) [facility] Goals Date Patient Goal Desired Activity /State Mental Status Date Assessment Result Facility 07-20-2023 Cognitive function Voice/Name [facility] Work Phone: Clinical Notes 11-18-2005 to 05-01-2024 Katrina Kendrick MD - 05/01/2024 12:19 PM ESTElana Nelson, Mammo Tech - 04/02/2024 2:50 PM Ken Hemphill Mammo Tech - 10/25/2023 3:30 PM Ken García Mammo Tech - 03/15/2023 1:10 PM EST Note Date & Type Note Facility 05-01-2024 Note HNO ID: [id number] Author: KATRINA KENDRICK MD Service: ? Author Type: Physician Type: Progress Notes Filed: 05/01/2024 12:39 Note Text: David is a 64 year old who presents for an annual gynecologic exam. Postmenopausal: Yes Last Pap: 01/28/2021 normal HPV: 01/23/2021 negative History of abnormal pap: No Last mammogram: 2023 normal History of abnormal mammogram: Yes OB History T0 L3 SAB1 IAB0 Ectopic0 Multiple0 Live Births0 Comment: Given 4 times; 3 living children. 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 Snoring Toxic diffuse goiter without mention of thyrotoxic crisis or storm PAST SURGICAL HISTORY Procedure Laterality Date BLEPHAROPLASTY UPPER EYELID W/EXCESSIVE SKIN COLONOSCOPY FLX DX W/COLLJ SPEC WHEN PFRMD 08/26/2004 WITH POLYPECTOMY ENDOMETRIAL BX W/WO ENDOCERVIX BX W/O DILAT SPX 06/07/2013 FAMILY HISTORY Problem Relation Age of Onset Diabetes Mother Hypertension Mother other (TIA) Mother Hypertension Father Lipids Father Hypertension Sister Hypertension Brother Heart Maternal Grandfather passed from an CO Colon Cancer Paternal Grandmother Thyroid Maternal Aunt hypothyroidism Stroke Paternal Aunt Breast Cancer Paternal Aunt SOCIAL HISTORY Social History Tobacco Use Smoking status: Never Smokeless tobacco: Never Vaping Use Vaping status: Never Used Substance Use Topics Alcohol use: Yes Comment: rare Drug use: No REVIEW OF SYSTEMS Abdomen: No abdominal pain, nausea, vomiting, diarrhea, or constipation. No bloating, early satiety, indigestion, or increased flatulence. Bladder: No dysuria, gross hematuria, urinary frequency, urinary urgency, or incontinence Breast: No breast lumps, nipple d/c, overlying skin changes, redness or skin retraction Allergies and current medication updated:Yes SENSITIVE EXAM: The sensitive examination was discussed with the Patient or Patient's Authorized Soap Worker. As applicable, any other physician, advance practice provider, medical student, or other health professional student that will be observing or involved in the sensitive examination for educational or training purposes was discussed with the Patient or Authorized Soap Worker. The Patient or Authorized Soap Worker has agreed to proceed with the sensitive examination. (Sensitive examination includes inspection and/or palpation of the breasts, pelvis, prostate and anorectal regions). EXAM: BP 126/86 Ht 5' 2 (1.58m) Wt 137 lb (62.1kg) LMP 07/17/2012 BMI 25.05 kg/(m2). GENERAL: pleasant, female in no apparent distress BREAST: soft, non-tender, symmetric, no dominant mass, normal nipple-areolar complex, no lymphadenopathy, and no nipple discharge CHEST: Normal inspiratory effort ABDOMEN: soft, non-tender, and no masses PELVIC: external genitalia normal, no vulvar lesions, no cervical lesions, normal appearing perineal body and perianal region BIMANUAL: uterus normal size, shape and consistency, no adnexal masses, and non-tender RECTOVAGINAL: deferred. NEURO: alert and oriented x3,exam grossly non-focal EXTREMITIES: normal ASSESSMENT/PLAN: 1) Health maintenance: Pap/HPV up to date. Mammogram up to date Nutrition, exercise and routine health maintenance exams reviewed. Colon cancer screening: up to date with screening 2) Follow up one year or sooner as needed Katrina Kendrick MD [facility] 05-01-2024 History of Presen t illness Narrative David is a 64 year old who presents for an annual gynecologic exam. Postmenopausal: Yes Last Pap: 01/28/2021 normal HPV: 01/23/2021 negative History of abnormal pap: No Last mammogram: 2023 normal History of abnormal mammogram: Yes OB History T0 L3 SAB1 IAB0 Ectopic0 Multiple0 Live Births0 Comment: Given 4 times; 3 living children. 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 Snoring Toxic diffuse goiter without mention of thyrotoxic crisis or storm PAST SURGICAL HISTORY Procedure Laterality Date BLEPHAROPLASTY UPPER EYELID W/EXCESSIVE SKIN COLONOSCOPY FLX DX W/COLLJ SPEC WHEN PFRMD 08/26/2004 WITH POLYPECTOMY ENDOMETRIAL BX W/WO ENDOCERVIX BX W/O DILAT SPX 06/07/2013 FAMILY HISTORY Problem Relation Age of Onset Diabetes Mother Hypertension Mother other (TIA) Mother Hypertension Father Lipids Father Hypertension Sister Hypertension Brother Heart Maternal Grandfather passed from an CO Colon Cancer Paternal Grandmother Thyroid Maternal Aunt hypothyroidism Stroke Paternal Aunt Breast Cancer Paternal Aunt SOCIAL HISTORY Social History Tobacco Use Smoking status: Never Smokeless tobacco: Never Vaping Use Vaping status: Never Used Substance Use Topics Alcohol use: Yes Comment: rare Drug use: No REVIEW OF SYSTEMS Abdomen: No abdominal pain, nausea, vomiting, diarrhea, or constipation. No bloating, early satiety, indigestion, or increased flatulence. Bladder: No dysuria, gross hematuria, urinary frequency, urinary urgency, or incontinence Breast: No breast lumps, nipple d/c, overlying skin changes, redness or skin retraction Allergies and current medication updated:Yes SENSITIVE EXAM: The sensitive examination was discussed with the Patient or Patient's Authorized Soap Worker. As applicable, any other physician, advance practice provider, medical student, or other health professional student that will be observing or involved in the sensitive examination for educational or training purposes was discussed with the Patient or Authorized Soap Worker. The Patient or Authorized Soap Worker has agreed to proceed with the sensitive examination. (Sensitive examination includes inspection and/or palpation of the breasts, pelvis, prostate and anorectal regions). EXAM: BP 126/86 Ht 5' 2 (1.58m) Wt 137 lb (62.1kg) LMP 07/17/2012 BMI 25.05 kg/(m^2). GENERAL: pleasant, female in no apparent [...] consistency, no adnexal masses, and non-tender RECTOVAGINAL: deferred. NEURO: alert and oriented x3,exam grossly non-focal EXTREMITIES: normal ASSESSMENT/PLAN: 1) Health maintenance: Pap/HPV up to date. Mammogram up to date Nutrition, exercise and routine health maintenance exams reviewed. Colon cancer screening: up to date with screening 2) Follow up one year or sooner as needed Katrina Kendrick MD documented in this encounter [facility] 04-02-2024 History of Presen t illness Narrative Radiology Service Progress Note PATIENT NAME: David Yanes DATE OF SERVICE: April 02, 2024 TIME: 3:09 PM PATIENT IDENTITY VERIFICATION COMPLETED USING TWO (2) IDENTIFIERS: Name and Date of confirmed by patient verbally. FALL SCREENING: Has the patient had 2 falls in the last year or 1 fall with injury or currently using an Ambulatory Assistive Device (Walker, Cane, Wheelchair, Crutches, etc.)? No PATIENT GENDER DATA: Female. status: : No status: NO. PATIENT RELEVANT IMPLANT DATA REVIEWED: Not Applicable PATIENT PRESENTS WITH AN IMPLANTABLE OR ATTACHED MEDICAL RECEPTION SPECIALIST: No RADIOLOGY DEPARTMENT: Mammography PERIPHERAL IV DATA: Not applicable SIGNED BY: Elana Nelson Ordr.in April 02, 2024 3:09 PM documented in this encounter [facility] 04-02-2024 Note HNO ID: [id number] Author: ELANA NELSON Mammo Tech Service: ? Author Type: Wastewater Technician Type: Progress Notes Filed: 04/02/2024 15:09 Note Text: Radiology Service Progress Note PATIENT NAME: David Yanes DATE OF SERVICE: April 02, 2024 TIME: 3:09 PM PATIENT IDENTITY VERIFICATION COMPLETED USING TWO (2) IDENTIFIERS: Name and Date of confirmed by patient verbally. FALL SCREENING: Has the patient had 2 falls in the last year or 1 fall with injury or currently using an Ambulatory Assistive Device (Walker, Cane, Wheelchair, Crutches, etc.)? No PATIENT GENDER DATA: Female. status: : No status: NO. PATIENT RELEVANT IMPLANT DATA REVIEWED: Not Applicable PATIENT PRESENTS WITH AN IMPLANTABLE OR ATTACHED MEDICAL RECEPTION SPECIALIST: No RADIOLOGY DEPARTMENT: Mammography PERIPHERAL IV DATA: Not applicable SIGNED BY: Manny Kelly April 02, 2024 3:09 PM [facility] 10-25-2023 History of Presen t illness Narrative Radiology Service Progress Note PATIENT NAME: David Yanes DATE OF SERVICE: October 25, 2023 TIME: 3:41 PM PATIENT IDENTITY VERIFICATION COMPLETED USING TWO (2) IDENTIFIERS: Name and Date of confirmed by patient verbally. FALL SCREENING: Has the patient had 2 falls in the last year or 1 fall with injury or currently using an Ambulatory Assistive Device (Walker, Cane, Wheelchair, Crutches, etc.)? No PATIENT GENDER DATA: Female. status: : No status: NO. PATIENT RELEVANT IMPLANT DATA REVIEWED: Not Applicable PATIENT PRESENTS WITH AN IMPLANTABLE OR ATTACHED MEDICAL RECEPTION SPECIALIST: No RADIOLOGY DEPARTMENT: Mammography PERIPHERAL IV DATA: Not applicable SIGNED BY: Manny Vasquez October 25, 2023 3:41 PM documented in this encounter [facility] 10-25-2023 Note HNO ID: [id number] Author: KEN PARKER Mammo Tech Service: ? Author Type: Technologist Type: Progress Notes Filed: 10/25/2023 15:42 Note Text: Radiology Service Progress Note PATIENT NAME: David Yanes DATE OF SERVICE: October 25, 2023 TIME: 3:41 PM PATIENT IDENTITY VERIFICATION COMPLETED USING TWO (2) IDENTIFIERS: Name and Date of confirmed by patient verbally. FALL SCREENING: Has the patient had 2 falls in the last year or 1 fall with injury or currently using an Ambulatory Assistive Device (Walker, Cane, Wheelchair, Crutches, etc.)? No PATIENT GENDER DATA: Female. status: : No status: NO. PATIENT RELEVANT IMPLANT DATA REVIEWED: Not Applicable PATIENT PRESENTS WITH AN IMPLANTABLE OR ATTACHED MEDICAL RECEPTION SPECIALIST: No RADIOLOGY DEPARTMENT: Mammography PERIPHERAL IV DATA: Not applicable SIGNED BY: Manny Vasquez October 25, 2023 3:41 PM [facility] 07-20-2023 Note [facility] Medical Records Department [address] [place] [id number] History Physical Exam 07/20/23 0652 MR#: [id number] Acct: [id number] Name: DAVID YANES Rep #: [id number] : 1960 63 From: Adrian Campos DO PCP: Dr. Marlon Willoughby MD Status:[facility] Location: [place] [address] HPI - General General Date of Admission: 07/20/23 Date of Service: 07/20/23 Chief Complaint: Screening colonoscopy HPI Narrative DAVID YANES, is a 63 F who presents today for screening colonoscopy. She had a colonoscopy approximately 10 years ago. She she has only past medical history of mild hypertension and mild hypothyroidism. Above controlled medicines. Overall she is in very good health. [facility] Medical History (Updated 07/14/23 @ 15:23 by Olga Paulson) Alcohol use Anxiety Diverticulosis Family hx of colon cancer GERD (gastroesophageal reflux disease) High cholesterol History of irregular heartbeat History of stress test Hypercholesterolemia Hypertension Hypothyroidism Low iron Non-smoker Restless legs Thyroid disease Wears glasses Home Medications sodium sul 1.479 gram-potas ch 0.188 gram-magnes sul 0.225 gram tablet (Sutab) See Rx Instructions PO PER PKG DIR Colonoscopy prep #24 tabs 05/03/23 [Rx Last Taken Unknown] ascorbate calcium (vitamin C) 500 mg tablet 500 mg PO DAILY 05/05/23 [History Last Taken Unknown] cholecalciferol (vitamin D3) 50 mcg (2,000 unit) capsule 50 mcg PO DAILY 05/05/23 [History Last Taken Unknown] ferrous sulfate 325 mg (65 mg iron) tablet 325 mg PO DAILY 05/05/23 [History Last Taken Unknown] loratadine 10 mg capsule (Claritin Liqui-Gel) 10 mg PO QHS 05/05/23 [History Last Taken Unknown] mecobalamin (vitamin B12) 1,000 mcg chewable tablet 500 mcg PO DAILY 05/05/23 [History Last Taken Unknown] psyllium husk 0.4 gram capsule (Fiber (psyllium husk)) 0.4 g PO BID 05/05/23 [History Last Taken Unknown] valacyclovir 1 gram tablet (Valtrex) 2,000 mg PO BID PRN cold sores 05/05/23 [History Last Taken Unknown] famotidine 20 mg tablet (Acid Controller) 20 mg PO DAILY 07/14/23 [History Last Taken Unknown] lactobacillus combination no.4 3 billion cell capsule (Probiotic) 3,000 mmu cells PO DAILY 07/14/23 [History Last Taken Unknown] levothyroxine 150 mcg tablet 150 mcg PO DAILY 07/14/23 [History Last Taken Unknown] magnesium oxide 420 mg tablet 420 mg PO BID 07/14/23 [History Last Taken Unknown] spironolactone 100 mg tablet 50 - 100 mg PO DAILY 07/14/23 [History Last Taken Unknown] Allergy/AdvReac Type Severity Reaction Status Date / Time adhesive tape Allergy Rash Verified 07/20/23 05:42 lisinopril AdvReac Cough Verified 07/20/23 05:42 metoprolol [From Toprol XL] AdvReac Dreams Verified 07/20/23 05:42 Surgical History (Updated 07/14/23 @ 15:23 by Olga Paulson) History of blepharoplasty (09/21/22) History of wisdom tooth extraction Hx of colonoscopy with polypectomy Social History (Updated 05/05/23 @ 09:17 by Nadja Jackson) household members: spouse current occupational status: employed 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 Smoking Status: Never smoker substance use type: does not use ROS Review of Systems ROS Unobtainable: other Constitutional Constitutional: Denies fatigue, fever(s), poor appetite, weight gain or weight loss ENT HEENT: Denies mouth lesions Cardiovascular Cardiovascular: Denies abdominal bloating, abdominal edema or abdominal pain Respiratory/Chest Respiratory/Chest: Denies change in mental status, change in phlegm color, chest congestion or chest tightness Gastrointestinal Gastrointestinal: Denies belching, bloating, change in bowel habits, change in stool character, chewing difficulty, coffee ground emesis, constipation, cramping, diarrhea, dyspepsia, dysphagia, early satiety, excessive flatus, fecal incontinence, heartburn, hematemesis, hematochezia, hemorrhoids, loose stools, melena, nausea, odynophagia, rectal bleeding, tenesmus, vomiting or weight changes Genitourinary Genitourinary: Denies abdominal discomfort, burning urination or itching Musculoskeletal Musculoskeletal: Reports as per HPI; Denies muscle weakness or myalgias Integumentary Integumentary: Denies jaundice Neurologic Neurologic: Denies lack of coordination or weakness Psychiatric Psychiatric: Denies confusion, depression, memory loss, mood swings, paranoia or suicidal ideation Endocrine Endocrinology: Denies systems reviewed and no addt'l complaints, except as documented Hematologic/Lymphatic Hematologic/Lymphatic: Denies anemia, easy bleeding, easy bruising or lymphadenopathy Allergic/Immunologic Allergic/Immunologic: Denies systems reviewed and no addt'l complaints, except as documented Vital Signs Vital Signs Vital Signs: 07/20/23 05:47 07/20/23 05:47 Temperature 97.7 F L Temperature S (more content not included)... [facility] 04-12-2023 Miscellaneous Notes Notified patient orders were placed and transferred [...] Katrina Kendrick MD documented in this encounter [facility] 03-17-2023 Miscellaneous Notes Patient notified. Kathryn Marx RN Done Katrina Kendrick MD Patient called. Viewed her abnormal mammogram results. Needs order so that she can schedule her diagnostic imaging. Please file. Patient would then like a call back once orders have been placed. Kathryn Marx, HARJEET documented in this encounter [facility] 03-16-2023 Miscellaneous Notes March 16, 2023 PID: [id number] David Yanes [address] [place] [address] Dear Ms. Yanes, Your recent breast imaging [...] who ordered/prescribed your screening mammogram: Please call [phone] or EXT: [id number] to schedule an appointment for your additional [...] and reports are kept on file at [facility] as part of your permanent medical record, and are available for your continuing care. Thank you for allowing us to help in meeting your health care needs. Sincerely, Dr. Sales Interpreting Radiologist [facility] (Additional imaging) documented in this encounter [facility] 03-15-2023 History of Presen t illness Narrative [...] Manny Vasquez March 15, 2023 1:31 PM documented in this encounter [facility] 02-07-2023 Discharge summary Note Date/Time February 07, 2023 7:28pm [facility] Medical Records Department [address] [place] [address] Emergency Department Summary 02/07/23 MR#: [id number] Acct: [id number] Name: DAVID YANES Rep #:[id number] : 1960 62 From: Marlon Grewal PCP: Dr. Marlon Willoughby MD Status:REG ER Location: ED ADDENDUM by Dr. Trever Richards DO on 02/08/23 at 0021 Patient signed out to me. Evaluation by crisis, agrees with depression however clinically stable. No suicidal homicidal ideations. She is given multiple resources for outpatient follow-up. She is cleared for discharge. 02/08/2320<Electronically signed by Trever Green> Cosigner Signature (if applicable): 02/07/232035 <Electronically signed by Laura MOBLEY> cc: Dr. Marlon Willoughby MD ~* Signed HPI <ITZ Beck - Last Filed: 02/07/23 20:36> HPI - Psych History of Present Illness Chief Complaint: Mental Health Narrative Narrative: Patient presenting today due to depression that she has been suffering with since December. She reports that she had a blepharoplasty performed due to hereyelids drooping into her eyes affecting her vision, she thinks that the surgeontook too much of her skin off because she had a difficult time closing her righteye completely. She reports that she does not feel like herself and rarely recognizes herself anymore. She has been having panic attacks for the past 3 days. She has seen her PCP for this, she was prescribed lorazepam to use as needed and was given 2 weeks worth, she reports that she has used this medication very sparingly and still has several pills left. She has not used itsince Tuesday. She just started Lexapro today. She denies any thoughts of self-harm, suicidal thoughts, homicidal thoughts, tactile/visual/auditory hallucinations, and substance use. [facility] <ITZ Beck - Last Filed: 02/07/23 20:36> [facility] Medical History (Updated 02/07/23 @ 20:30 by Dang Willoughby) Anxiety Hypertension Hypothyroidism Home Medications aspirin 81 mg tablet,delayed release 81 mg PO DAILY@0800 04/25/18 [History Last Taken Unknown] doxycycline monohydrate 100 mg capsule 100 mg PO DAILY 04/25/18 [History Last Taken Unknown] levothyroxine 125 mcg tablet 125 mcg PO DAILY 04/25/18 [History Last Taken Unknown] magnesium oxide 800 mg PO DAILY 04/25/18 [History Last Taken Unknown] spironolactone 25 mg tablet 25 mg PO TID 04/25/18 [History Last Taken Unknown] Ranitidine [Zantac] 150 mg PO DAILY 04/28/18 [History Last Taken 04/28/18 08:00] lorazepam 0.5 mg tablet 0.5 mg PO Q12H PANIC ATTACK 02/07/23 [History Last Taken Unknown] Allergy/AdvReac Type Severity Reaction Status Date / Time adhesive tape Allergy Rash Verified 02/07/23 18:35 Family History other Social History Smoking Status: Never smoker ROS <ITZ Beck - Last Filed: 02/07/23 20:36> ROS ED Constitutional Constitutional ED: Denies chills or fever(s) Cardiovascular Cardiovascular: Denies chest pain Respiratory/Chest Respiratory/Chest: Denies cough or dyspnea Gastrointestinal Gastrointestinal: Denies abdominal pain, nausea or vomiting Genitourinary Genitourinary ED: Denies dysuria, hematuria or urinary urgency Musculoskeletal Musculoskeletal: Denies arthralgias or myalgias Integumentary Denies rash Neurologic Neurologic: Denies weakness Psychiatric Psychiatric: Reports anxiety, depression and panic attacks; Denies hallucinations, homicidal ideation, suicidal ideation or suicidal thoughts EXAM <ITZ Beck - Last Filed: 02/07/23 20:36> Physical Exam Const Vital Signs: 02/07/23 18:36 02/07/23 22:35 Temperature 97.9 F Temperature Source Temporal Pulse Rate 112 H 90 Respiratory Rate 18 16 Blood Pressure 171/86 H 125/75 H Blood Pressure Mean 114 91 Pulse Ox 98 99 Oxygen Delivery Method Room Air Room Air Positive well nourished, well developed and no apparent distress General Appearance ED: well developed HEENT Reports normocephalic and head/scalp atraumatic Mouth ED: Yes moist mucous membranes normal Eyes PERRL and EOMs intact bilaterally Neck full ROM and supple Chest Wall inspection of chest normal Resp normal respiratory effort and clear to auscultation bilaterally Cardio regular rate and regular rhythm GI soft to palpation, non-tender, non-distended and no masses Back/Spine normal ROM and normal to inspection Extremity normal to inspection and full ROM Neuro oriented x3, CN's II-XII intact bilaterally, moves all extremities, no focal motor deficits and no sensory deficits noted Sensorium / Orientation: awake and alert Psych mental status grossly normal, thought process normal, cooperative and speech normal Appearance: grossly normal Mood & Affect: depressed, sad and tearful Thought Content: No suicidality, No homicidality, No phobia(s) and No delusion(s) Skin no rashes or lesions noted and no wounds <Dr. Marlon Monique DO - Last Filed: 02/07/23 23:40> Physical Exam Const Vital Signs: 02/07/23 18:36 02/07/23 22:35 Temperature 97.9 F Temperature Source Temporal Pulse Rate 112 H 90 Respiratory Rate 18 16 Blood Pressure 171/86 H 125/75 H Blood Pressure Mean 114 91 Pulse Ox 98 99 Oxygen Delivery Method Room Air Room Air MDM <ITZ Beck - Last Filed: 02/07/23 20:36> [facility] MDM Narrative Medical decision making narrative: Patient presenting due to depression that she has been struggling with since December after receiving a blepharoplasty. She reports that she is unhappy with the surgery and does not recognize herself anymore. She has seen her PCP for this, they did give her a short-term prescription of Ativan which she has been using very sparingly, she just started taking Lexapro today. She denies any thoughts of self-harm, suicide, homicide, hallucinations. Patient is tearful and has broke out in hysterical bouts of crying several times while I was speaking with her. Patient will be given Ativan, I will have crisis come and evaluate her. Crisis is requesting that labs to be obtained prior to them evaluating patient. Work-up is pending. Lab Data Attestation: I reviewed the patient's lab results. Labs: Laboratory Results - last 24 hr 02/07/23 19:54 WBC 6.5 RBC 4.97 Hgb 15.7 H Hct 46.4 MCV 93.4 MCH 31.6 MCHC 33.8 RDW Std Deviation 40.9 RDW Coeff of Saira 11.9 Plt Count 275 MPV 9.2 Immature Gran % (Auto) 0.300 Neut % (Auto) 70.4 H Lymph % (Auto) 18.9 L O'Brien % (Auto) 9.2 Eos % (Auto) 0.6 Baso % (Auto) 0.6 Absolute Neuts (auto) 4.6 Absolute Lymphs (auto) 1.23 Nucleated RBC % 0 Sodium 139 Potassium 3.7 Chloride 106 Carbon Dioxide 25.0 Anion Gap 8 BUN 9 Creatinine 0.69 Estim Creat Clear Calc 68.57 Est GFR (MDRD) Af Amer 111 Est GFR (MDRD) Non-Af 92 BUN/Creatinine Ratio 13.0 Glucose 102 Calcium 9.9 Urine Opiates Screen NEGATIVE Urine Methadone Screen NEGATIVE Ur Barbiturates Screen NEGATIVE Ur Phencyclidine Scrn NEGATIVE Ur Amphetamines Screen NEGATIVE MDMA (Ecstasy) Screen NEGATIVE U Benzodiazepines Scrn NEGATIVE Urine Cocaine Screen NEGATIVE U Cannabinoids Screen NEGATIVE Ur Drug Screen Comment Ethyl Alcohol < 3.0 <Dr. Marlon Monique, DO - Last Filed: 02/07/23 23:40> MDM Lab Data Labs: Laboratory Results - last 24 hr 02/07/23 19:54 WBC 6.5 RBC 4.97 Hgb 15.7 H Hct 46.4 MCV 93.4 MCH 31.6 MCHC 33.8 RDW Std Deviation 40.9 RDW Coeff of Saira 11.9 Plt Count 275 MPV 9.2 Immature Gran % (Auto) 0.300 Neut % (Auto) 70.4 H Lymph % (Auto) 18.9 L O'Brien % (Auto) 9.2 Eos % (Auto) 0.6 Baso % (Auto) 0.6 Absolute Neuts (auto) 4.6 Absolute Lymphs (auto) 1.23 Nucleated RBC % 0 Sodium 139 Potassium 3.7 Chloride 106 Carbon Dioxide 25.0 Anion Gap 8 BUN 9 Creatinine 0.69 Estim Creat Clear Calc 68.57 Est GFR (MDRD) Af Amer 111 Est GFR (MDRD) Non-Af 92 BUN/Creatinine Ratio 13.0 Glucose 102 Calcium 9.9 Urine Opiates Screen NEGATIVE Urine Methadone Screen NEGATIVE Ur Barbiturates Screen NEGATIVE Ur Phencyclidine Scrn NEGATIVE Ur Amphetamines Screen NEGATIVE MDMA (Ecstasy) Screen NEGATIVE U Benzodiazepines Scrn NEGATIVE Urine Cocaine Screen NEGATIVE U Cannabinoids Screen NEGATIVE Ur Drug Screen Comment Ethyl Alcohol < 3.0 Treatment and Re-Evaluation Narrative: I have personally performed a face to face assessment of the patient and have reviewed the FOREIGN Note. I performed a substantive portion of the visit including all aspects of the following. My gordillo findings include: History: Patient presents with depression and anxiety that has been getting worse over the past several months. Patient states she had a recent blepharoplasty and since that time she has been more depressed because her eyes do not look right anymore. Patient states she does not like the way she looks. Patient denies any suicidal or homicidal ideations. Patient states she has not been eating or sleeping very well. Patient states that her primary care physician started her on mirtazapine but she is no longer taking that because she did not think it was helping. Patient was started on Lexapro and took her first dose today. Patient also was given a prescription for a short-term courseof Ativan. Patient states that she only takes that sparingly. Exam: Vital signs are stable. Patient is afebrile. Patient is in no acute distress. Patient is anxious and tearful on examination. Oral mucosa is pink and moist. Neck is supple. Trachea is midline. There is no JVD. Heart was regular rate and rhythm. Lungs are clear and equal bilaterally. Abdomen is soft. Bowel sounds are normal. There is no tenderness. Cranial nerves II through XII are intact. There are no focal motor or sensory deficits noted. Patient denies any suicidal or homicidal ideations. Medical Decision Making: Medical screening labs will be obtained prior to evaluation by crisis counselor. CBC will be obtained to assess for leukocytosisand anemia. Basic metabolic profile will be obtained to assess for electrolyte abnormality and renal function. Serum alcohol level will be obtained to assess for alcohol intoxication. Urine drug screen will be obtained to assess for substance abuse. Patient was given a dose of Ativan here. CBC was reviewed andwas within normal limits. Basic metabolic profile was reviewed and was within normal limits. Urine tox screen was reviewed and was negative. Serum alcohol level was reviewed and was less than 3.0. Case was discussed with crisis looper fixer. She was in to evaluate the patient. Care of the patient will be turned over to the oncoming physician pending crisis evaluation. Discharge Plan Triage Chief Complaint: Mental Health ED Midlevel Provider: Laura Baron ED Provider: Marlon Monique Dx/Rx/DC Orders Prescriptions: No Action aspirin 81 MG tablet 81 mg PO DAILY@0800 spironolactone 25 MG tablet 25 mg PO TID doxycycline monohydrate 100 MG capsule 100 mg PO DAILY levothyroxine 125 MCG tablet 125 mcg PO DAILY magnesium oxide 400 MG capsule 800 mg PO DAILY Ranitidine [Zantac] 150 MG tablet 150 mg PO DAILY lorazepam 0.5 mg tablet 0.5 mg PO Q12H Patient Comments: TAKE 1/2 TO 1 TABLET BY MOUTH 2 TIMES A DAY NEEDED FOR PANIC ATTACK PREVENTION Primary Care Provider: Marlon Willoughby Referrals: Marlon Willoughby MD [Primary Care Provider] - What to do if you have Problems For any increased pain, shortness of breath, bleeding, nausea or vomiting, chestpain, or any unexpected problems, contact your Primary Care Provider. Call [facility] ([phone]) or report to the closest Emergency Room. Call 911 if necessary. 02/07/232341 <Electronically signed by Marlon Monique DO> Cosigner Signature (if applicable): 02/07/232035 <Electronically signed by Laura MOBLEY> CC: Dr. Marlon Willoughby MD ~ Signed [facility] Work Phone: [phone] 429-317311-18-2022 History of Present illness Narrative* Katrina Kendrick MD - 02/19/2022 1:59 PM EST David is a 62 year old who presents for an annual gynecologic exam. Postmenopausal: Yes Last Pap: 01/28/2021 normal HPV: 01/23/2021 negative History of abnormal pap: No Last mammogram: 2021 negative after follow up imaging OB History T0 L3 SAB1 IAB0 Ectopic0 Multiple0 Live Births0 Comment: Given 4 times; 3 living children. Had one daughter pass from [employer] [employer] Photo Manager History LMP: 07/17/2012, Postmenopausal Age at Menarche: Age at First : Age at Menopause: Photo Manager History Comments: Sexual Activity: Yes; Male; Menopause [...] BX W/WO ENDOCERVIX BX W/O DILAT SPX 3/6/14 FAMILY HISTORY Problem Relation Age of Onset Diabetes Mother Hypertension Mother other (TIA) Mother Hypertension Father Lipids Father Hypertension Sister Hypertension Brother Heart Maternal Grandfather passed from an CO Colon Cancer Paternal Grandmother Thyroid Maternal Aunt [...] needed Katrina Kendrick MD [facility] History of Present illness Narrative* Franny Le, Mammo Tech - 02/10/2022 1:00 PM EST Radiology Service Progress Note PATIENT NAME: David Yanes DATE OF SERVICE: February 10, 2022 TIME: 1:12 PM PATIENT IDENTITY VERIFICATION COMPLETED USING TWO (2) IDENTIFIERS: Name and Date of confirmedby patient verbally. FALL SCREENING: Has the patient [...] 10, 2022 1:12 PM [facility] Miscellaneous Notes* Telephone Encounter - Dyaln Boyle - 01/08/2022 11:58 AM EDT Patient called to schedule CB [facility] Miscellaneous Notes* Letter - Mammography Coordinator - 01/08/2022 9:11 AM EDT January 08, 2022 PID: [id number] David Yanes [address] [place] [address] Dear Ms. Yanes, Your recent breast imaging [...] dense breast tissue in addition to other riskfactors. If you have a healthcare provider who ordered/prescribed your screening mammogram: Please call [phone] or EXT: [phone] to schedule an appointment for your additional imaging (if youhave not already done so). If you DO [...] and reports are kept on file at [facility] as part of your permanent medical record, and are available for your continuing care. Thank you for allowing us to help in meeting your health care needs. Sincerely, Dr. 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 documented as of this encounter (statuses as of 01/08/2022) [address]17-2006 History of Past illness Narrative* Problem Noted Date Resolved Date 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 documented as of this encounter (statuses as of 01/12/2022) [address]17-2006 History of Past illness Narrative* Problem Noted Date Resolved Date 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 documented as of this encounter (statuses as of 02/19/2022) [address]17-2006 History of Past illness Narrative* Problem Noted Date Diagnosed Date Resolved Date 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 documented as of this encounter (statuses as of 02/06/2023) [address]17-2006 History of Past illness Narrative* Problem Noted Date Diagnosed Date Resolved Date 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 documented as of this encounter (statuses as of 03/16/2023) [facility] History of Past illness Narrative* Problem Noted Date Diagnosed Date Resolved Date 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 documented as of this encounter (statuses as of 03/18/2023) [place] [id number] History of Past illness Narrative* Problem Noted Date Diagnosed Date Resolved Date 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 documented as of this encounter (statuses as of 03/18/2023) [place] [id number] History of Past illness Narrative* Problem Noted Date Diagnosed Date Resolved Date 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 documented as of this encounter (statuses as of 04/12/2023) [facility] noteNo assessment information availableW[facility] Work Phone: evaluation note* Diagnosis Abnormal mammogram- Primary Abnormal mammogram, unspecified documented in this encounter [facility] note* Diagnosis Encounter for gynecological examination without abnormal finding- Primary Routine gynecological examination Encounter for screening mammogram for malignant neoplasm of breast Other screening mammogram Dense breasts Inconclusive mammogram [facility] Diagnosis Abnormal mammogram Abnormal mammogram, unspecified [facility]* Diagnosis Encounter for screening mammogram for malignant neoplasm of breast Other screening mammogram Dense breasts Inconclusive mammogram [facility]* Diagnosis Abnormal mammogram- Primary Abnormal mammogram, unspecified [facility]* Diagnosis Category 3 mammography result with short follow-up interval suggested for probably benign finding- Primary Inconclusive mammogram [facility]* Diagnosis Onset Date Resolution Status Encounter for screening for malignant neoplasm of colo n [facility] Work Phone: evaluation note* Diagnosis Category 3 mammography result with short follow-up interval suggested for probably benign finding Inconclusive mammogram [facility] Diagnosis Category 3 mammography result with short follow-up interval suggested for probably benign finding Inconclusive mammogram [facility] Diagnosis Encounter for screening mammogram for malignant neoplasm of breast Other screening mammogram [facility] Diagnosis Encounter for gynecological examination (general) (routine) without abnormal findings- Primary Encounter for screening mammogram for breast cancer documented [facility] this [facility] Author Adrian Campos [facility] July 20, 2023 6:53am Note Date/Time July 20, 2023 6:5 3am [facility] Medical Records Department [address] [place] [address] History & Physical Exam 07/20/23 0652 MR#: [id number] Acct: [id number] Name: DAVID YANES Rep #:[id number] : 1960 63 From: Adrian Campos DO PCP: Dr. Marlon Willoughby MD Status:[facility] Location: [place] [address] HPI - General General Date of Admission: 07/20/23 Date of Service: 07/20/23 Chief Complaint: Screening colonoscopy HPI Narrative DAVID YANES, is a 63 F who presents today for screening colonoscopy. She had a colonoscopy approximately 10 years ago. She she has only past medical history of mild hypertension and mild hypothyroidism. Above controlled medicines. Overall she is in very good health. [facility] Medical History (Updated 07/14/23 @ 15:23 by Olga Paulson) Alcohol use Anxiety Diverticulosis Family hx of colon cancer GERD (gastroesophageal reflux disease) High cholesterol History of irregular heartbeat History of stress test Hypercholesterolemia Hypertension Hypothyroidism Low iron Non-smoker Restless legs Thyroid disease Wears glasses Home Medications sodium sul 1.479 gram-potas ch 0.188 gram-magnes sul 0.225 gram tablet (Sutab) See Rx Instructions PO PER PKG DIR Colonoscopy prep #24 tabs 05/03/23 [Rx Last Taken Unknown] ascorbate calcium (vitamin C) 500 mg tablet 500 mg PO DAILY 05/05/23 [History Last Taken Unknown] cholecalciferol (vitamin D3) 50 mcg (2,000 unit) capsule 50 mcg PO DAILY 05/05/23 [History Last Taken Unknown] ferrous sulfate 325 mg (65 mg iron) tablet 325 mg PO DAILY 05/05/23 [History Last Taken Unknown] loratadine 10 mg capsule (Claritin Liqui-Gel) 10 mg PO QHS 05/05/23 [History Last Taken Unknown] mecobalamin (vitamin B12) 1,000 mcg chewable tablet 500 mcg PO DAILY 05/05/23 [History Last Taken Unknown] psyllium husk 0.4 gram capsule (Fiber (psyllium husk)) 0.4 g PO BID 05/05/23 [History Last Taken Unknown] valacyclovir 1 gram tablet (Valtrex) 2,000 mg PO BID PRN cold sores 05/05/23 [History Last Taken Unknown] famotidine 20 mg tablet (Acid Controller) 20 mg PO DAILY 07/14/23 [History Last Taken Unknown] lactobacillus combination no.4 3 billion cell capsule (Probiotic) 3,000 mmu cells PO DAILY 07/14/23 [History Last Taken Unknown] levothyroxine 150 mcg tablet 150 mcg PO DAILY 07/14/23 [History Last Taken Unknown] magnesium oxide 420 mg tablet 420 mg PO BID 07/14/23 [History Last Taken Unknown] spironolactone 100 mg tablet 50 - 100 mg PO DAILY 07/14/23 [History Last Taken Unknown] Allergy/AdvReac Type Severity Reaction Status Date / Time adhesive tape Allergy Rash Verified 07/20/23 05:42 lisinopril AdvReac Cough Verified 07/20/23 05:42 metoprolol [From Toprol XL] AdvReac Dreams Verified 07/20/23 05:42 Surgical History (Updated 07/14/23 @ 15:23 by Olga Paulson) History of blepharoplasty (09/21/22) History of wisdom tooth extraction Hx of colonoscopy with polypectomy Social History (Updated 05/05/23 @ 09:17 by Nadja Jackson) household members: spouse current occupational status: employed 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 Smoking Status: Never smoker substance use type: does not use ROS Review of Systems ROS Unobtainable: other Constitutional Constitutional: Denies fatigue, fever(s), poor appetite, weight gain or weight loss ENT HEENT: Denies mouth lesions Cardiovascular Cardiovascular: Denies abdominal bloating, abdominal edema or abdominal pain Respiratory/Chest Respiratory/Chest: Denies change in mental status, change in phlegm color, chestcongestion or chest tightness Gastrointestinal Gastrointestinal: Denies belching, bloating, change in bowel habits, change in stool character, chewing difficulty, coffee ground emesis, constipation, cramping, diarrhea, dyspepsia, dysphagia, early satiety, excessive flatus, fecalincontinence, heartburn, hematemesis, hematochezia, hemorrhoids, loose stools, melena, nausea, odynophagia, rectal bleeding, tenesmus, vomiting or weight changes Genitourinary Genitourinary: Denies abdominal discomfort, burning urination or itching Musculoskeletal Musculoskeletal: Reports as per HPI; Denies muscle weakness or myalgias Integumentary Integumentary: Denies jaundice Neurologic Neurologic: Denies lack of coordination or weakness Psychiatric Psychiatric: Denies confusion, depression, memory loss, mood swings, paranoia orsuicidal ideation Endocrine Endocrinology: Denies systems reviewed and no addt'l complaints, except as documented Hematologic/Lymphatic Hematologic/Lymphatic: Denies anemia, easy bleeding, easy bruising or lymphadenopathy Allergic/Immunologic Allergic/Immunologic: Denies systems reviewed and no addt'l complaints, except as documented Vital Signs Vital Signs Vital Signs: 07/20/23 05:47 07/20/23 05:47 Temperature 97.7 F L Temperature Source Temporal Pulse Rate 77 Respiratory Rate 16 Respiratory Pattern Normal Blood Pressure 137/91 H Blood Pressure Mean 106 Blood Pressure Source Monitor Blood Pressure Position Semi-Fowlers Blood Pressure Location Left Arm Pulse Ox 99 Oxygen Delivery Method Room Air Weight Weight: 131 lb Body Mass Index (BMI) 23.9 Physical Exam Const alert General Appearance: cooperative Orientation / Consciousness: oriented to person HEENT hearing grossly normal bilaterally Head and Scalp: normal to inspection Face and Sinus: face symmetric Nose: external nose normal Mouth: oral and palatal mucosa normal Eyes conjunctivae normal General Eye: normal appearance of both eyes Neck full ROM General: normal visual inspection Lymph Lymphatic: no lymphadenopathy noted Chest inspection of chest normal and palpation of chest normal Chest: symmetrical chest wall rise Resp normal respiratory effort Effort and Inspection: able to speak in complete sentences Cardio regular rate GI non-distended Percussion: normal to percussion Rectal Exam: deferred Neuro Speech: speech normal Gait (Neuro): normal gait Assessment & Plan Assessment/Plan (1) Encounter for screening for malignant neoplasm of colon: PLAN: She was explained alternatives, risk, benefits including not withstanding bleeding, infection, sepsis, perforation, need for emergent urgent . She will have an ASA of 2. 07/20/23 0653 <Electronically signed by Adrian Friend DO> Cosigner Signature (if applicable): CC: Dr. Marlon Willoughby MD; Adrian Friend, DO~ Signed [facility] Work Phone: Hospital Discharge instructions Additional Instructions Follow-up with the resources given to you by counseling service. If you develop worsening symptoms or any thoughts of hurting yourself, please return back to the emergency department for reevaluation.[facility] Work Phone: Reason for referral (narrative)* Diagnostic Procedure Only (Routine) - Authorized Specialty Diagnoses / Procedures Referred By Contac t Referred To Contact [facility] Diagnoses Abnormal mammogram Procedures VERÓNICA DIAGNOSTIC LT DIAGNOSTIC MAMMOGRAPHY COMPUTER-AIDED DETCJ UNI Rosalind Steward APRN.CNP [address] [place] [address] [facility] [address] [address] Referral ID Status Reason Start Date Expiration Date Visits Requested Visits Authorized [id number] Authorized Auto-Generat ed Referral 01/08/2022 02/07/2023 1 1 * Diagnostic Procedure Only (Routine) - Pending Review Specialty Diagnoses / Procedures Referred By Jackelin t Referred To Contact [facility] Diagnoses Abnormal mammogram Procedures US BREAST LTD LT US BREAST UNI REAL TIME WITH IMAGE LIMITED Rosalind Steward APRN.CREATIVE DESIGNER [address] [place] [address] [facility] [address] [place] [address] Referral ID Status Reason Start Date Expiration Date Visits Requested Visits Authorized [id number] Pending Review Auto-Generat ed Referral 01/08/2022 02/07/2023 1 1 [facility] Diagnostic Procedure Only (Routine) - Pending Review Specialty Diagnoses / Procedures Referred By Contac t Referred To Contact [facility] Diagnoses Encounter for screening mammogram for malignant neoplasm of breast Dense breasts Procedures VERÓNICA SCREENING W JUANA SCREENING DIGITAL BREAST TOMOSYNTHESIS BI SCREENING MAMMOGRAPHY BI 2-VIEW BREAST INC CAD Katrina Kendrick MD [address] [place] [place] [address] [facility] [address] [address] Referral ID Status Reason Start Date Expiration Date Visits Requested Visits Authorized [id number] Pending Review Auto-Generat ed Referral 2 03/21/2023 1 1 [facility] for referral (narrative)* Diagnostic Procedure Only (Routine) - Authorized Specialty Diagnoses / Procedures Referred By Contac t Referred To Contact [facility] IM[facility] Diagnoses Abnormal mammogram Procedures US BREAST LTD RIGHT US BREAST UNI REAL TIME WITH IMAGE LIMITED Katrina Kendrick MD [address] [place] [address] [facility] [address] [address] Referral ID Status Reason Start Date Expiration Date Visits Requested Visits Authorized [id number] Authorized Auto-Generat ed Referral 3 04/14/2024 1 1 * Diagnostic Procedure Only (Routine) - Authorized Specialty Diagnoses / Procedures Referred By Contac t Referred To Contact [facility] Diagnoses Abnormal mammogram Procedures VERÓNICA DIAGNOSTIC RIGHT DIAGNOSTIC MAMMOGRAPHY COMPUTER-AIDED DETCJ UNI Katrina Kendrick MD [address] [place] [address] [facility] [address] [address] Referral ID Status Reason Start Date Expiration Date Visits Requested Visits Authorized [id number] Authorized Auto-Generat ed Referral 3 04/14/2024 1 1 [facility] for referral (narrative)* Diagnostic Procedure Only (Routine) - Pending Review Specialty Diagnoses / Procedures Referred By Contac t Referred To Contact [facility] Diagnoses Category 3 mammography result with short follow-up interval suggested for probably benign finding Procedures US BREAST LTD RIGHT US BREAST UNI REAL TIME WITH IMAGE LIMITED Katrina Kendrick MD [address] [place] [place] [address] [facility] [address] [place] [address] Referral ID Status Reason Start Date Expiration Date Visits Requested Visits Authorized [id number] Pending Review Auto-Generat ed Referral 04/12/2023 05/11/2024 1 1 * Diagnostic Procedure Only (Routine) - Authorized Specialty Diagnoses / Procedures Referred By Contac t Referred To Contact [facility] Diagnoses Category 3 mammography result with short follow-up interval suggested for probably benign finding Procedures VERÓNICA DIAGNOSTIC RIGHT DIAGNOSTIC MAMMOGRAPHY COMPUTER-AIDED DETCJ UNI Katrina Kendrick MD [address] [place] [address] [place] [address] Referral ID Status Reason Start Date Expiration Date Visits Requested Visits Authorized [id number] Authorized Auto-Generat ed Referral 04/12/2023 05/11/2024 1 1 [facility] for referral (narrative)* Diagnostic Procedure Only (Routine) - Authorized Specialty Diagnoses / Procedures Referred By Jackelin patino Referred To Contact [facility] Diagnoses Encounter for gynecological examination (general) (routine) without abnormal findings Encounter for screening mammogram for breast cancer Procedures VERÓNICA SCREENING W JUANA SCREENING DIGITAL BREAST TOMOSYNTHESIS BI SCREENING MAMMOGRAPHY BI 2-VIEW BREAST INC CAD Katrina Kendrick MD [address] [place] [address] [facility] [address] [place] [address] Referral ID Status Reason Start Date Expiration Date Visits Requested Visits Authorized [id number] Authorized Auto-Generat ed Referral 05/01/2024 05/31/2025 1 1 [facility] for visit Narrative* Diagnostic Procedure Only (Routine) - Closed Specialty Diagnoses / Procedures Referred By Contac t Referred To Contact [facility] Diagnoses Abnormal mammogram Procedures VERÓNICA DIAGNOSTIC LT DIAGNOSTIC MAMMOGRAPHY COMPUTER-AIDED DETCJ UNI Rosalind Steward APRN.CREATIVE DESIGNER [address] [place] [address] [facility] [address] [place] [address] Referral ID Status Reason Start Date Expiration Date V isits Requested Visits Authorized [id number] Closed Auto-Generate d Referral 01/08/2022 02/07/2023 1 1 [facility] for visit Narrative* Diagnostic Procedure Only (Routine) - Closed Specialty Diagnoses / Procedures Referred By Contac t Referred To Contact [facility] Diagnoses Encounter for screening mammogram for malignant neoplasm of breast Dense breasts Procedures VERÓNICA SCREENING W JUANA SCREENING DIGITAL BREAST TOMOSYNTHESIS BI SCREENING MAMMOGRAPHY BI 2-VIEW BREAST INC [facility] Katrina Kendrick MD [address] [place] [place] [address] [facility] [address] [place] [address] Referral ID Status Reason Start Date Expiration Date V isits Requested Visits Authorized [id number] Closed Auto-Generate d Referral 02/19/2022 03/21/2023 1 1 [facility] for visit Narrative* Diagnostic Procedure Only (Routine) - Closed Specialty Diagnoses / Procedures Referred By Contac t Referred To Contact [facility] Diagnoses Category 3 mammography result with short follow-up interval suggested for probably benign finding Procedures VERÓNICA DIAGNOSTIC RIGHT DIAGNOSTIC MAMMOGRAPHY COMPUTER-AIDED DETCJ UNI Katrina Kendrick MD [address] [place] [address] [facility] [address] [place] [place] [address] Referral ID Status Reason Start Date Expiration Date V isits Requested Visits Authorized [id number] Closed Auto-Generate d Referral 04/12/2023 05/11/2024 1 1 [facility] for visit Narrative* Diagnostic Procedure Only (Routine) - Authorized Specialty Diagnoses / Procedures Referred By Contac t Referred To Contact [facility] Diagnoses Category 3 mammography result with short follow-up interval suggested for probably benign finding Procedures US BREAST LTD RIGHT US BREAST UNI REAL TIME WITH IMAGE LIMITED Katrina Kendrick MD [address] [place] [address] [facility] [address] [place] [address] Referral ID Status Reason Start Date Expiration Date Visits Requested Visits Authorized [id number] Authorized Auto-Generat ed Referral 04/12/2023 05/11/2024 1 1 [facility]* Diagnostic Procedure Only (Routine) - Closed Specialty Diagnoses / Procedures Referred By Contac t Referred To Contact [facility] Diagnoses Encounter for screening mammogram for malignant neoplasm of breast Procedures VERÓNICA SCREENING W JUANA SCREENING DIGITAL BREAST TOMOSYNTHESIS BI SCREENING MAMMOGRAPHY BI 2-VIEW BREAST INC CAD Katrina Kendrick MD [address] [place] [address] [facility] [address] [place] [place] [address] Referral ID Status Reason Start Date Expiration Date V isits Requested Visits Authorized [id number] Closed Auto-Generate d Referral 04/02/2024 04/29/2025 1 1 [facility] Advance Directives No Advanced Directives Records Found Advance Directive Response Recorded Date/ Time Living Will No April 25 12:45pm Power of Lead Caster No April 25, 2018 12:45pm Advance Directive Response Recorded Date/ Time Living Will No February 07 7:15pm Power of Lead Caster No February 07, 2023 7:15pm Advance Directive Response Recorded Date/ Time Living Will No July 14, 2023 3:14pm Power of Lead Caster No July 13 3:14pm Chief Complaint and Reason for Visit Chief Complaint mental health crisis Chief Complaint Amb Documentation Reason for Visit Encounter for screen ing for malignant neoplasm of colon Summary Purpose Family History No Family History Records FoundNo Family History Records Found Additional Source Comments Goals (unrecognized section and content) Goals may be documented in a n alternate sectionGoals may be documented in an alternate sectionGoals may be documented in an alternate sectionGoals may be documented in an alternate sectionGoals may be documented in an alternate sectionGoals may be documented in an alternate section Source Comments (unrecognize d section and content) In the event this informatio n is protected by the Federal Confidentiality of Alcohol and Drug Abuse Patient Records regulations: The Federal rules restrict any use of the information to criminally investigate or prosecute any alcohol or drug abuse patient.[facility] the event this information is protected by the Federal Confidentiality of Alcohol and Drug Abuse Patient Records regulations: The Federal rules restrict any use of the information to criminally investigate or prosecute any alcohol or drug abuse patient.[facility] Center[facility] the event this information is protected by the Federal Confidentiality of Alcohol and Drug Abuse Patient Records regulations: The Federal rules restrict any use of the information to criminally investigate or prosecute any alcohol or drug abuse patient.[facility] the event this information is protected by the Federal Confidentiality of Alcohol and Drug Abuse Patient Records regulations: The Federal rules restrict any use of the information to criminally investigate or prosecute any alcohol or drug abuse patient.[facility] Center[facility] the event this information is protected by the Federal Confidentiality of Alcohol and Drug Abuse Patient Records regulations: The Federal rules restrict any use of the information to criminally investigate or prosecute any alcohol or drug abuse patient.[facility] Center[facility] the event this information is protected by the Federal Confidentiality of Alcohol and Drug Abuse Patient Records regulations: The Federal rules restrict any use of the information to criminally investigate or prosecute any alcohol or drug abuse patient.[facility] Center[facility] the event this information is protected by the Federal Confidentiality of Alcohol and Drug Abuse Patient Records regulations: The Federal rules restrict any use of the information to criminally investigate or prosecute any alcohol or drug abuse patient.[facility] Center[facility] the event this information is protected by the Federal Confidentiality of Alcohol and Drug Abuse Patient Records regulations: The Federal rules restrict any use of the information to criminally investigate or prosecute any alcohol or drug abuse patient.[facility] Center[facility] the event this information is protected by the Federal Confidentiality of Alcohol and Drug Abuse Patient Records regulations: The Federal rules restrict any use of the information to criminally investigate or prosecute any alcohol or drug abuse patient.[facility] Center[facility] the event this information is protected by the Federal Confidentiality of Alcohol and Drug Abuse Patient Records regulations: The Federal rules restrict any use of the information to criminally investigate or prosecute any alcohol or drug abuse patient.[facility] Center[facility] the event this information is protected by the Federal Confidentiality of Alcohol and Drug Abuse Patient Records regulations: The Federal rules restrict any use of the information to criminally investigate or prosecute any alcohol or drug abuse patient.[facility] Center[facility] the event this information is protected by the Federal Confidentiality of Alcohol and Drug Abuse Patient Records regulations: The Federal rules restrict any use of the information to criminally investigate or prosecute any alcohol or drug abuse patient.[facility] Center[facility] the event this information is protected by the Federal Confidentiality of Alcohol and Drug Abuse Patient Records regulations: The Federal rules restrict any use of the information to criminally investigate or prosecute any alcohol or drug abuse patient.[facility] Reason for Visit (unrecogniz ed section and content) Reason Comments Orders Reason Comments Mammogram Result Call Back Reason Onset Date Comments Yearly Exam 02/19/2022 Reason Comments Yearly Exam Care Teams (unrecognized sec tion and content) Cotton Ginner Helper Relationship Specialty Start Date End Date Marlon Willoughby MD PCP - General 11/28/07 Cotton Ginner Helper Relationship Specialty Start Date End Date Marlon Willoughby MD PCP - General 11/28/07 Cotton Ginner Helper Relationship Specialty Start Date End Date Marlon Willoughby MD PCP - General 11/28/07 Cotton Ginner Helper Relationship Specialty Start Date End Date Marlon Willoughby MD PCP - General 11/28/07 Team Status: Active Member Role Status Dates Dr. Marlon Willoughby MD Family Provider Active Dr. Marlon Willoughby MD Primary Care Provider Active Team Status: Inactive Member Role Status Dates Dr. Marlon Willoughby MD Primary Care Provide r, Attending Provider, Referring Provider Active Team Status: Inactive Member Role Status Dates Dr. Marlon Willoughby MD Primary Care Provider, Attending Armando lindsey Active Cotton Ginner Helper Relationship Specialty Start Date End Date Marlon Willoughby MD PCP - General 11/28/07 Team Status: Inactive Member Role Status Dates Dr. Marlon Willoughby MD Primary Care Provider Active Dr. Marlon Monique DO Emergency Provider Active [employer] Helper Relationship Specialty Start Date End Date Marlon Willoughby MD PCP - General 11/28/07 [employer] Hel[employer] Relationship Specialty Start Date End Date Marlno Willoughby MD PCP - General 11/28/07 [employer] Helper Relationship Specialty Start Date End Date Marlon Willoughby MD PCP - General 11/28/07 Team Status: Inactive Member Role Status Dates Dr. Marlon Willoughby MD Primary Care Provider Active Dr. Marlon Monique DO Attending Provider, Emergency P rovider Active Team Status: Active Member Role Status Dates Dr. Marlon Willoughby MD Primary Care Provider Active [facility] Attending Provider Active Team Status: Active Member Role Status Dates Dr. Marlon Willoughby MD Primary Care Provider, Referring P rovider Active Dr. Adrian Campos DO Attending Provider, Other Prov ider Active Team Status: Inactive Member Role Status Dates Dr. Marlon Willoughby MD Primary Care Provider, Referring P rovider Active Dr. Adrian Campos DO Attending Provider Active [employer] Helper Relationship Specialty Start Date End Date Marlon Willoughby MD PCP - General 11/28/07 [employer] Helper Relationship Specialty Start Date End Date Marlon Willoughby MD PCP - General 11/28/07 INFORMATION SOURCE (unrecogn ized section and content) DATE CREATED AUTHOR 05/02/2024 [facility] DATE CREATED AUTHOR 'S ORGANIZ ATION 05/22/2024 [facility] FOR RECORDS PERTAINING TO PATIENTS WHO ARE [...] BE BASED ON THE PRIMARY CLINICAL RECORDS. [email or web address] provides no warranty or guarantee of the accuracy or completeness of information in this document.
== END | disposition home or self-care (01) ==
LOC: MFPLAB 11:17
PROVIDERS: PCP Family Medicine; Referring Provider Family Medicine; Visit Provider Family Medicine
DX: E03.9 Hypothyroidism, unspecified (principal); E78.5 Hyperlipidemia, unspecified
CPT/HCPCS: 36415; 80061; 84439; 84443; 84481

== ENCOUNTER → 2025-04-03 | Outpatient (CLI) | payer OTHER, SELFPAY ==
--- OUTSIDE RECORDS SUMMARY | 2025-04-03 14:23 | XMS RPT_ITS | CCD ---
Author Organization [facility] Care Team Providers Care Mounter Saxophones Name Role Phone Marlon Willoughby MD Primary Care Provider Dr. Marlon Willoughby Primary Care Provider Nadja Jackson Attending Provider Unavailable Dr. Marlon Willoughby Referring Provider [phone] Friend, Dr. Campbell Attending Provider [phone] Friend, Dr. Campbell Other Provider [phone] Marlon Willoughby MD Primary Care Provider KATRINA KENDRICK Attending Unavailable CASE, MARLON A Primary Care Unavailable KATRINA KENDRICK Referring Unavailable WILLOUGHBY, MARLON A Primary Care Unavailable KATRINA KENDRICK Referring Unavailable WILLOUGHBY, MARLON A Primary Care Unavailable MIREILLE, KATRINA Referring Unavailable CASE, MARLON A Primary Care Unavailable Case MONTEZ, Dr. Preciado Primary Care Provider [phone] Dr. Marlon Willoughby MD Attending Provider [phone] Dr. Marlon Willoughby MD Referring Provider Marlon Willoughby Attending Unavailable Willoughby, Marlon Primary Care Unavailable Marlon Willoughby Attending Unavailable Willoughby, Marlon Referring Unavailable Willoughby, Marlon Primary Care Unavailable Willoughby Marlon Attending Unavailable Willoughby, Marlon Referring Unavailable Willoughby, Marlon Primary Care Unavailable Willoughby, Marlon Referring Unavailable Willoughby, Marlon Primary Care Unavailable Case Marlon Attending Unavailable Allergies Allergy Classification Reported Allergen(s) Allergy Type Date of Onset Reaction(s) Facility (5 sources) Adhesive Tape; Translations: [adhesive tape] Allergy to substance 9 [facility] (14 sources) Adhesive Tape; Translations: [ADHESIVE TAPE (ROSINS)] Propensity to adverse reactions 5 [facility] Work Phone: (2 sources) Lisinopril Drug Allergy 4 Cough [facility] (2 sources) Metoprolol Drug Allergy 4 Dreams [facility] (1 source) Lisinopril Drug Allergy 4 [facility] (1 source) Metoprolol Drug Allergy 4 [facility] Medications Current Medications Medication Drug Class(es) Dates Sig (Normalized) Sig (Original) calcium ascorbate 500 mg oral tablet (2 sources) Start: 05-05-2023 take 1 tablet by mouth once daily Ascorbate Calcium (Vitamin C) 500 mg tablet Active 500 mg PO DAILY May 05, 2023 1:00am cholecalciferol 0.05 mg oral capsule (2 sources) Vitamin D Start: 05-05-2023 take 1 capsule by mouth once daily Cholecalciferol (Vitamin D3) 50 mcg (2,000 unit) capsule Active 50 ug PO DAILY May 05, 2023 1:00am doxycycline monohydrate 50 mg oral capsule (20 sources) Tetracycline-cl ass Drug Start: 02-22-2019 take 1 capsule by mouth once daily as needed doxycycline monohydrate (MONODOX) 50 mg capsule Take 1 capsule by mouth once daily as needed. For roseaca 02/22/2019 Active Start: 04-25-2018 End: 05-05-2023 take 1 capsule by mouth once daily Doxycycline Monohydrate 100 MG capsule Discontinued 100 mg PO DAILY April 25, 2018 1:00am May 05, 2023 10:20am End: 05-01-2024 DOXYCYCLINE CALCIUM ORAL Sushil e by mouth. 05/01/2024 Discontinued (Other) DOXYCYCLINE CALC IUM ORAL Take by mouth. Active DOXYCYCLINE CALC IUM ORAL Take by mouth. 0 Active Comment on above: Take by mouth. Take [address] [facility] once daily as needed. For roseaca famotidine 20 mg oral tablet (2 sources) Histamine-2 Receptor Antagonist Start: 07-14-2023 take 1 tablet by mouth once daily Famotidine (Acid Controller) 20 mg tablet Active 20 mg PO DAILY July 14, 2023 12:00am ferrous sulfate 325 mg oral tablet (11 sources) Start: 05-05-2023 take 1 tablet by mouth once daily Ferrous Sulfate 325 mg (65 mg iron) tablet Active 325 mg PO DAILY May 05, 2023 1:00am ferrous sulfate (IRON ORAL) Take by mouth. Active ferrous sulfate (IRON ORAL) Take by mouth. 0 Active Comment on above: Take by mouth. ivermectin 10 mg/ml topical cream (1 source) Antiparasitic, Pediculicide Start: 03-31-20 ivermectin 1 % APPLY TOPICALLY TO FACE EVERY DAY 03/31/2024 Active Lactobacillus Combination No.4 (Probiotic) 3 billion cell capsule (2 sources) Start: 07-14-19 take 3 capsules by mouth once daily Lactobacillus Combination No.4 (Probiotic) 3 billion cell capsule Active 3000 NMA PO DAILY July 14, 2023 12:00am administer with a meal Start: 07-14-2023 take 3 capsules by m outh once daily Lactobacillus Combination No.4 (Probiotic) 3 billion cell capsule Active 3000 MMU CELLS PO DAILY July 14, 2023 12:00am administer with a meal levothyroxine sodium 0.137 mg oral tablet (20 sources) l-Thyroxine Start: 04-27-2024 take 1 tablet by mouth once levothyroxine (SYNTHROID) 137 mcg tablet Take 1 tablet by mouth every afternoon. 04/27/2024 Active Start: 07-14-2023 take 1 tablet by marnie th once daily Levothyroxine 150 mcg tablet Active 150 ug PO DAILY July 14, 2023 12:00am Start: 04-25-2018 End: 05-01-2024 take 1 tablet by mouth once daily Levothyroxine 125 MCG tablet Discontinued 125 ug PO DAILY April 25, 2018 1:00am July 14, 2023 3:08pm Start: 10-29-2009 End: 05-01-2024 levothyroxine sodium(LEVOXYL 112 MCG TAB) Take one(1) tablet daily. 0 10/29/2009 05/01/2024 Discontinued (Other) Comment on above: Take one(1) tablet d aily. Take 1 tablet by marnie th once daily. loratadine 10 mg oral capsule (2 sources) Start: 05-05-2023 take 1 capsule by mouth at bedtime Loratadine (Claritin Liqui-Gel) 10 mg capsule Active 10 mg PO AT BEDTIME May 05, 2023 1:00am magnesium oxide 420 mg oral tablet (20 sources) Start: 07-14-2023 take 1 tablet by mouth twice daily Magnesium Oxide 420 mg tablet Active 420 mg PO TWICE A DAY July 14, 2023 12:00am Start: 12-28-2018 magnesium oxid e (MAG-OX) 400 mg (241.3 mg magnesium) tablet Take 1 tablet by mouth as directed. 1-2 times daily 12/28/2018 Active Start: 04-25-2018 End: 07-14-2023 take 2 capsules by mouth once daily Magnesium Oxide 400 MG capsule Discontinued 800 mg PO DAILY April 25, 2018 1:00am July 14, 2023 3:09pm Start: 04-25-2018 End: 07-14-2023 take 800 mg by mouth once daily Magnesium Oxide Discon tinued 800 MG PO DAILY April 25, 2018 1:00am July 14, 2023 3:09pm Comment on above: Take 1 tablet by marnie th as directed. 1-2 times daily mecobalamin 1 mg chewable tablet (2 sources) Start: 05-05-2023 Mecobalamin (Vitamin B12) 1,000 mcg tablet,chewable Active 500 ug PO DAILY May 05, 2023 1:00am Start: 05-05-2023 take 500 ug by mouth once [place] y Mecobalamin (Vitamin B12) Active 500 MCG PO DAILY May 05, 2023 1:00am psyllium 400 mg oral capsule (2 sources) Start: 05-05-2023 Psyllium Husk (Fiber (Psyllium Husk)) 0.4 gram capsule Active 0.4 g PO TWICE A DAY May 05, 2023 1:00am Sod Sulf-Pot Chloride-Mag Sulf (2 sources) Start: 05-03-2023 take 1.479 tablets by mouth once Sod Sulf-Pot Chloride-Mag Sulf (Sutab) 1.479-0.188- 0.225 gram tablet Active 0 PO per package directions May 03, 2023 1:00am Colonoscopy prep PO PER PKG DIR Start: 05-03-2023 take 1.479 tablets b y mouth once Sod Sulf-Pot Chloride-Mag Sulf (Sutab) 1.479-0.188- 0.225 gram tablet Active 0 PO per package directions May 03, 2023 1:00am PO PER PKG DIR spironolactone 100 mg oral tablet (20 sources) Aldosterone Antagonist Start: 04-11-2024 take 50-100 mg by mouth once daily Spironolactone 100 mg tablet Active 50 - 100 mg PO DAILY July 14, 2023 12:00am Start: 05-05-2023 End: 07-14-2023 take 2 tablets by mouth once daily Spironolactone 25 mg tablet Discontinued 50 mg PO DAILY May 05, 2023 10:19am July 14, 2023 3:09pm Start: 05-05-2023 End: 07-14-2023 take 50 mg by mouth once daily Spironolactone Disconti nued 50 MG PO DAILY May 05, 2023 10:19am July 14, 2023 3:09pm Start: 03-20-2010 End: 05-05-2023 take 1 tablet by mouth three times daily Spironolactone 25 MG tablet Discontinued 25 mg PO THREE TIMES A DAY April 25, 2018 1:00am May 05, 2023 10:25am Comment on above: takes one and half p ill daily valACYclovir 1000 mg oral tablet (2 sources) Herpesvirus Nucleoside Analog DNA Polymerase Inhibitor, Herpes Simplex Virus Nucleoside Analog DNA Polymerase Inhibitor, Herpes Zoster Virus Nucleoside Analog DNA Polymerase Inhibitor Start: 05-05-2023 Valacyclovir (Valtrex) 1 gram tablet Active 2000 mg PO TWICE A DAY as needed for cold sores May 05, 2023 1:00am Completed/Discontinued Medications Medication Drug Class(es) Dates Sig (Normalized) Sig (Original) aspirin 81 mg delayed release oral tablet (20 sources) Platelet Aggregation Inhibitor, Nonsteroidal Anti-inflammatory Drug Start: 04-25-2018 End: 05-05-2023 take 1 tablet by mouth once daily Aspirin 81 MG tablet Discontinued 81 mg PO DAILY@0800 April 25, 2018 1:00am May 05, 2023 10:20am Start: 01-05-2005 End: 05-01-2024 ASPIRIN 81 MG TAB Take one ( 1) tablet daily . 0 01/05/2005 05/01/2024 Discontinued (Other) Comment on above: Take one (1) tablet daily . docosahexaenoic acid 144 mg / eicosapentaenoic acid 216 mg / vitamin e 2 unt oral capsule (2 sources) Start: End: [place]-3 Fatty Acids-Fish Oil (Fish Oil) 360-1,200 mg capsule Discontinued 1 NMA PO DAILY May 05, 2023 1:00am July 14, 2023 3:11pm esomeprazole 20 mg delayed release oral capsule (2 sources) Proton Pump Inhibitor Start: End: take 1 capsule by mouth once daily Esomeprazole Magnesium 20 mg capsule,delayed release(DR/EC) Discontinued 20 mg PO DAILY May 05, 2023 1:00am July 14, 2023 3:12pm LORazepam 0.5 mg oral tablet (4 sources) Benzodiazepine Start: 023 End: take 1 tablet by mouth every twelve hours Lorazepam 0.5 mg tablet Discontinued 0.5 mg PO Q12H February 07, 2023 1:00am May 05, 2023 10:20am PANIC ATTACK magnesium carbonate (13 sources) End: MAGNESIUM CARBONATE ORAL Take by mouth once daily. 05/01/2024 Discontinued (Other) MAGNESIUM CARBON ATE ORAL Take by mouth once daily. Active MAGNESIUM CARBON ATE ORAL Take by mouth once daily. 0 Active Comment on above: Take by mouth once d aily. MEDICATION, NON-DATABASE (13 sources) End: 05-01-2024 MEDICATION, NON-DATABASE Acutane - Rx by [facility] [place] 05/01/2024 Discontinued (Other) MEDICATION, NON- DATABASE Acutane - Rx by [facility] [place] Active MEDICATION, NON- DATABASE Acutane - Rx by [facility] [place] 0 Active Comment on above: Acutane - Rx by [facility] [place] raNITIdine 150 mg oral tablet (8 sources) Histamine-2 Receptor Antagonist Start: 9 End: take 1 tablet by mouth once daily Ranitidine (Zantac) 150 MG tablet Discontinued 150 mg PO DAILY April 28, 2018 1:00am May 05, 2023 10:18am Problems Active Problems Problem Classification Problem Date Documented Da te Episodic/Chronic Complications of surgical procedures or medical care (13 sources) Postablative hypothyroidism; Translations: [Postprocedural hypothyroidism] Onset: 11-18-2005 11-18-2005 Chronic Mood disorders (4 sources) Depressive disorder; Translations: [Depression] 02-08-2023 Chronic Other screening for suspected conditions (not mental disorders or infectious disease) (20 sources) Patient encounter status; Translations: [Encounter for screening for malignant neoplasm of intestinal tract, unspecified] Onset: 09-12-2014 Episodic Thyroid disorders (5 sources) Toxic diffuse goiter; 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] Onset: 11-15-2024 Resolved: 11-18-2005 10-13-2023 Chronic Past or Other Problems Problem Classification Problem Date Documented Da te Episodic/Chronic Other eye disorders (1 source) Unspecified ptosis of unspecified eyelid; Translations: [Unspecified ptosis of unspecified eyelid] Onset: 05-07-2024 Episodic Results Test Name Value Interpretation Reference Range Facility Calculated very low density lipoprotein (VLDL) cholesterol measurementOrdered By: Marlon Willoughby on 11-07-2024 Calculated very low density lipoprotein (VLDL) cholesterol measurement 25 mg/dL 5-40 [facility] Free T3on 11-07-2024 Free T3 [Mass/Vol] 2.7 pg/mL Normal 2.18-3.98 [facility] Comment on above: Order Comment: Order Date: 10/30/24 Order Info: [id number] - LIPID Order Info: [id number] - T3F Order Info: [id number] - TSH Order Info: [id number] - T4F Performed By: #### L [id number], L506.0400, L500.4100, [id number] #### [facility] [place], [address] Free [id number] By: Marlon aguirre on 11-07-2024 Free T3 [Mass/Vol] 2.7 pg/mL 2.18-3.98 [facility] LDL calc ser/plasOrdered By: Marlon Willoughby on 11-07-2024 Cholesterol in LDL [Mass/Vol] 174 mg/dL [facility] Comment on above: Bqcbsexazn=685-573 m g/dL & Higher Fjsb=721 mg/dL or greaterFriedwald Equation for LDL-C Lipid Profileon 11-07-2024 CHOL:HDL 3.84 Normal [facility] Comment on above: Order Comment: Order Date: 10/30/24 Order Info: [id number] - LIPID Order Info: [id number] - T3F Order Info: [id number] - TSH Order Info: [id number] - T4F Performed By: #### L [id number], L506.0400, L500.4100, L501.22401 #### [facility] [address] [place], [address] Cholesterol [Mass/Vol] 269 mg/dL High <=200 [facility] Comment on above: Order Comment: Order Date: 10/30/24 Order Info: [id number] - LIPID Order Info: 0 - T3F Order Info: 3 - TSH Order Info: [id number] - T4F Result Comment: Chol esterol level, Desirable <200 mg/dL Borderline high cholesterol 200-239 mg/dL High cholesterol >=240 mg/dL Recommendations of the NCEP Adult Treatment Panel for the following risk-cutoff thresholds for the [place] population. Performed By: #### L [id number], L506.0400, L500.4100, L501.10448 #### [facility] [address] [place], [address] Cholesterol in HDL [Mass/Vol] 70 mg/dL Normal [facility] Comment on above: Order Comment: Order Date: 10/30/24 Order Info: [id number] - LIPID Order Info: 0 - T3F Order Info: [id number] - TSH Order Info: [id number] - T4F Result Comment: Millicent onal Cholesterol Education Program (NCEP) guidelines: <40 mg/dL: Low HDL-cholesterol (major risk factor for CHD) >= 60 mg/dL: High HDL-cholesterol (negative risk factor for CHD) HDL-cholesterol is affected by a number of factors, e.g. smoking, exercise, hormones, sex and age. Performed By: #### L [id number], L506.0400, L500.4100, [id number] #### [facility] [address] [place], [address] Cholesterol in LDL [Mass/Vol] 174 mg/dL Normal [facility] Comment on above: Order Comment: Order Date: 10/30/24 Order Info: [id number] - LIPID Order Info: 0 - T3F Order Info: [id number] - TSH Order Info: 3023-10 T4F Result Comment: Bord xihima=565-285 mg/dL Higher Bmxs=501 mg/dL or greater Friedwald Equation for LDL-C Performed By: #### L [id number], L506.0400, L500.4100, L501.19429 #### [facility] [address] [place], [address] Cholesterol in VLDL [Mass/Vol] 25 mg/dL Normal 5-40 [facility] Comment on above: Order Comment: Order Date: 10/30/24 Order Info: [id number] - LIPID Order Info: - T3F Order Info: [id number] - TSH Order Info: 3023-10 T4F Performed By: #### L [id number], L506.0400, L500.4100, L501.94626 #### [facility] [address] [place], [place], [address] Triglyceride [Mass/Vol] 125 mg/dL Normal [facility] Comment on above: Order Comment: Order Date: 10/30/24 Order Info: [id number] - LIPID Order Info: - T3F Order Info: [id number] - TSH Order Info: 3023-10 T4F Result Comment: The drugs N-Acetylcysteine and Metamizole may falsely depress this assay. Normal range: <150 mg/dL Borderline High: 150-199 mg/dL High: 200-499 mg/dL Very High: >500 mg/dL Performed By: #### L [id number], L506.0400, L500.4100, L501.71652 #### [facility] [address] [place], [address] Screening total cholesterol/ high density lipoprotein (HDL) cholesterol ratioOrdered By: Marlon Willoughby on 11-07-2024 Cholesterol.total/Cho lesterol in HDL [Mass ratio] 3.84 {ratio} [facility] Serum or plasma cholesterol in HDL measurement (mass/volume)Ordered By: Marlon Willoughby on 11-07-2024 Cholesterol in HDL [Mass/Vol] 70 mg/dL >40 [facility] Comment on above: National Cholesterol Education Program (NCEP) guidelines:<40 mg/dL: Low HDL-cholesterol (major risk factor for CHD)>= 60 mg/dL: High HDL-cholesterol (negative risk factor for CHD)HDL-cholesterol is affected by a number of factors, e.g. smoking, exercise, hormones, sex and age. Serum or plasma cholesterol measurement (mass/volume)Ordered By: Marlon Willoughby on 11-07-2024 Cholesterol [Mass/Vol] 269 mg/dL High <201 [facility] Comment on above: Cholesterol level, D esirable <200 mg/dLBorderline high cholesterol 200-239 mg/dLHigh cholesterol >=240 mg/dLRecommendations of the NCEP Adult Treatment Panel for the following risk-cutoff thresholds for the [place] population. T4 Free Directon 11-07-2024 T4 FREE DIRECT 1.50 ng/dL High 0.76-1.46 [facility] Comment on above: Order Comment: Order Date: 10/30/24 Order Info: [id number] - LIPID Order Info: [id number] - T3F Order Info: [id number] - TSH Order Info: [id number] - T4F Performed By: #### L [id number], L506.0400, L500.4100, L501.80569 #### [facility] [address] [place], [place] [address]all [facility] [place], [address] T4 freeOrdered By: Marlon aguirre on 11-07-2024 Free T4 [Mass/Vol] 1.50 ng/dL High 0.76-1.46 [facility] TSH DL <= 0.005 mIU/L QnOrde red By: Marlon Willoughby on 11-07-2024 TSH Qn 0.300 uIU/mL 0.300-4.200 [facility] Thyroid Stim Hormone (TSH)on 11-07-2024 TSH 0.300 uIU/mL Normal 0.300-4.200 [facility] Comment on above: Order Comment: Order Date: 10/30/24 Order Info: [id number] - LIPID Order Info: [id number] - T3F Order Info: [id number] - TSH Order Info: [id number] - T4F Performed By: #### L [id number], L506.0400, L500.4100, L501.52462 #### [facility] [address] [place], [address] Triglycerides measurementOrd ered By: Marlon Willoughby on 11-07-2024 Triglyceride [Mass/Vol] 125 mg/dL <199 [facility] Comment on above: The drugs N-Acetylcy steine and Metamizole may falsely depress this assay. Normal range: <150 mg/dLBorderline High: 150-199 mg/dLHigh: 200-499 mg/dLVery High: >500 mg/dL CBC W/Diff, Automatedon Absolute Lymph 1.07 X10 3/uL Normal 0.83-4.51 [facility] Comment on above: Order Comment: Order Date: 04/27/24Order Info: [id number] - CBCD Performed By: #### L [id number], L3890.6100, L3890.6005 #### [facility] [address] [place], [address] Absolute Neut 2.5 X10 3/uL Normal 2.0-7.7 [facility] Comment on above: Order Comment: Order Date: 04/27/24Order Info: [id number] - CBCD Performed By: #### L [id number], L3890.6100, L3890.6005 #### [facility] [address] [place], [address] Basophils/100 WBC (Bld) 0.7 % Normal 0-1 [facility] Comment on above: Order Comment: Order Date: 04/27/24Order Info: [id number] - CBCD Performed By: #### L [id number], [id number], L3890.6005 #### [facility] [address] [place], [address] Eosinophils/100 WBC (Bld) 4.3 % Normal 0-5 [facility] Comment on above: Order Comment: Order Date: 04/27/24Order Info: [id number] - CBCD Performed By: #### L 3890.6300, L3890.6100, L3890.6005 #### [facility] [address] [place], [address] Erythrocyte distribution width (RBC) [Ratio] 11.7 % Normal 11.6-14.6 [facility] Comment on above: Order Comment: Order Date: 04/27/24Order Info: [id number] - CBCD Performed By: #### L [id number], L3890.6100, L3890.6005 #### [facility] [address] [place], [address] Hematocrit (Bld) [Volume fraction] 41.7 % Normal 37-47 [facility] Comment on above: Order Comment: Order Date: 04/27/24Order Info: [id number] - CBCD Performed By: #### L [id number], L3890.6100, L3890.6005 #### [facility] [address] [place], [address] Hemoglobin (Bld) [Mass/Vol] 13.7 g/dL Normal 12.0-15.0 [facility] Comment on above: Order Comment: Order Date: 04/27/24Order Info: [id number] - CBCD Performed By: #### L [id number], L3890.6100, L3890.6005 #### [facility] [address] [place], [address] IG% 0.200 Normal 0.0-0.9 [facility] Comment on above: Order Comment: Order Date: 04/27/24Order Info: [id number] - CBCD Result Comment: IG% - Immature Granulocytes (promyelocytes, myelocytes and metamyelocytes) > 1% indicates that a LEFT SHIFT is Present. Performed By: #### L 3890.6300, L3890.6100, L3890.6005 #### [facility] [address] [place], [address] Lymphocytes/100 WBC (Bld) 25.6 % Normal 19-41 [facility] Comment on above: Order Comment: Order Date: 04/27/24Order Info: [id number] - CBCD Performed By: #### L 3890.6300, L3890.6100, L3890.6005 #### [facility] [address] [place], [address] MCH (RBC) [Entitic mass] 30.4 pg Normal 27.0-32.0 [facility] Comment on above: Order Comment: Order Date: 04/27/24Order Info: 0184-1 - CBCD Performed By: #### L 3890.6300, L3890.6100, L3890.6005 #### [facility] [address] [place], [address] MCHC (RBC) [Mass/Vol] 32.9 g/dL Normal 32-36 [facility] Comment on above: Order Comment: Order Date: 04/27/24Order Info: 0184-1 - CBCD Performed By: #### L 3890.6300, L3890.6100, L3890.6005 #### [facility] [address] [place], [address] MCV (RBC) [Entitic vol] 92.5 fL Normal 81-99 [facility] Comment on above: Order Comment: Order Date: 04/27/24Order Info: 0184-1 - CBCD Performed By: #### L 3890.6300, L3890.6100, L3890.6005 #### [facility] [address] [place], [address] Monocytes/100 WBC (Bld) 9.6 % Normal 0-10 [facility] Comment on above: Order Comment: Order Date: 04/27/24Order Info: 0184-1 - CBCD Performed By: #### L 3890.6300, L3890.6100, L3890.6005 #### [facility] [address] [place], [address] Neutrophils/100 WBC (Bld) 59.6 % Normal 47-70 [facility] Comment on above: Order Comment: Order Date: 04/27/24Order Info: 018-1 - CBCD Performed By: #### L 3890.6300, L3890.6100, L3890.6005 #### [facility] [address] [place], [address] Nucleated RBC (Bld) [#/Vol] 0 10*3/uL Normal 0-5 [facility] Comment on above: Order Comment: Order Date: 04/27/24Order Info: [id number]- - CBCD Performed By: #### L 3890.6300, L3890.6100, L3890.6005 #### [facility] [address] [place], [address] Platelet mean volume (Bld) [Entitic vol] 10.0 fL Normal 6.2-12.0 [facility] Comment on above: Order Comment: Order Date: 04/27/24Order Info: 0184-1 - CBCD Performed By: #### L 3890.6300, L3890.6100, L3890.6005 #### [facility] [address] [place], [address] Platelets (Bld) [#/Vol] 263 10*3/uL Normal 150-450 [facility] Comment on above: Order Comment: Order Date: 04/27/24Order Info: 0184-1 - CBCD Performed By: #### L 3890.6300, L3890.6100, L3890.6005 #### [facility] [address] [place], [address] RBC (Bld) [#/Vol] 4.51 10*6/uL Normal 4.2-5.4 [facility] Comment on above: Order Comment: Order Date: 04/27/24Order Info: 0184-1 - CBCD Performed By: #### L 3890.6300, L3890.6100, L3890.6005 #### [facility] [address] [place], [address] RDW SD 39.5 fl Normal 35.1-43.9 [facility] Comment on above: Order Comment: Order Date: 04/27/24Order Info: 0184-1 - CBCD Performed By: #### L 3890.6300, L3890.6100, L3890.6005 #### [facility] [address] [place], [address] WBC (Bld) [#/Vol] 4.2 10*3/uL Low 4.4-11.0 [facility] Comment on above: Order Comment: Order Date: 04/27/24Order Info: 0184-1 - CBCD Performed By: #### L 3890.6300, L3890.6100, L3890.6005 #### [facility] [address] [place], [address] Comprehensive Metabolic Prof laon 05-07-2024 Albumin [Mass/Vol] 3.9 g/dL Normal 3.2-5.0 [facility] Comment on above: Order Comment: Order Date: 04/27/24Order Info: 0786-1 - CMP Performed By: #### L 3890.6300, L3890.6100, L3890.6005 #### [facility] [address] [place], [address] Albumin/Globulin [Mass ratio] 1.0 {ratio} Normal 0.9-2.4 [facility] Comment on above: Order Comment: Order Date: 04/27/24Order Info: 0786-1 - CMP Performed By: #### L 3890.6300, L3890.6100, L3890.6005 #### [facility] [address] [place], [address] ALK P 83 U/L Normal 45-117 [facility] Comment on above: Order Comment: Order Date: 04/27/24Order Info: 0786-1 - CMP Performed By: #### L 3890.6300, L3890.6100, L3890.6005 #### [facility] [address] [place], [address] ALT [Catalytic activity/Vol] 66 U/L High 13-56 [facility] Comment on above: Order Comment: Order Date: 04/27/24Order Info: 0786-1 - CMP Performed By: #### L 3890.6300, L3890.6100, L3890.6005 #### [facility] [address] [place], [address] AST [Catalytic activity/Vol] 31 U/L Normal 15-37 [facility] Comment on above: Order Comment: Order Date: 04/27/24Order Info: 0786-1 - CMP Performed By: #### L 3890.6300, L3890.6100, L3890.6005 #### [facility] [address] [place], [address] Bilirubin [Mass/Vol] 0.60 mg/dL Normal 0.20-1.00 [facility] Comment on above: Order Comment: Order Date: 04/27/24Order Info: 0786-1 - CMP Result Comment: For patients on eltrombopag therapy, use of Dimension Sparks TBIL is not recommended. Performed By: #### L 3890.6300, L3890.6100, L3890.6005 #### [facility] [address] [place], [address] BUN/CRE 17.5 RATIO Normal 10-20 [facility] Comment on above: Order Comment: Order Date: 04/27/24Order Info: 0786-1 - CMP Performed By: #### L 3890.6300, L3890.6100, L3890.6005 #### [facility] [address] [place], [address] CA,Total 9.3 mg/dL Normal 8.5-10.1 [facility] Comment on above: Order Comment: Order Date: 04/27/24Order Info: 0786-1 - CMP Performed By: #### L 3890.6300, L3890.6100, L3890.6005 #### [facility] [address] [place], [address] Chloride [Moles/Vol] 106 mmol/L Normal 98-107 [facility] Comment on above: Order Comment: Order Date: 04/27/24Order Info: 0786-1 - CMP Performed By: #### L 3890.6300, L3890.6100, L3890.6005 #### [facility] [address] [place], [address] CO2 [Moles/Vol] 26.0 mmol/L Normal 21.0-32.0 [facility] Comment on above: Order Comment: Order Date: 04/27/24Order Info: 0786-1 - CMP Performed By: #### L 3890.6300, L3890.6100, L3890.6005 #### [facility] [address] [place], [address] Creatinine [Mass/Vol] 0.80 mg/dL Normal 0.55-1.02 [facility] Comment on above: Order Comment: Order Date: 04/27/24Order Info: 0786-1 - CMP Result Comment: The validity of the calculated GFR GFRAA in patients over 70 years has not been determined. Clinical correlation is essential. Performed By: #### L 3890.6300, L3890.6100, L3890.6005 #### [facility] [address] [place], [address] EST GFR - AA 94 mL/min Normal >60 [facility] Comment on above: Order Comment: Order Date: 04/27/24Order Info: 0786-1 - CMP Result Comment: Afri can Argentine GFR Calc Performed By: #### L 3890.6300, L3890.6100, L3890.6005 #### [facility] [address] [place], [address] GAP 6 Normal 5-15 [facility] Comment on above: Order Comment: Order Date: 04/27/24Order Info: 0786-1 - CMP Performed By: #### L 3890.6300, L3890.6100, L3890.6005 #### [facility] [address] [place], [address] GFR/1.73 sq M.predicted among non-blacks MDRD (S/P/Bld) [Vol rate/Area] 77 mL/min/{1.73_m2} Normal >60 [facility] Comment on above: Order Comment: Order Date: 04/27/24Order Info: 0786-1 - CMP Result Comment: Non- GFR Calc Performed By: #### L 3890.6300, L3890.6100, L3890.6005 #### [facility] [address] [place], [address] Globulin (S) [Mass/Vol] 3.8 g/dL Normal 2.2-4.2 [facility] Comment on above: Order Comment: Order Date: 04/27/24Order Info: 0786-1 - CMP Performed By: #### L 3890.6300, L3890.6100, L3890.6005 #### [facility] [address] [place], [address] Glucose [Mass/Vol] 94 mg/dL Normal 74-106 [facility] Comment on above: Order Comment: Order Date: 04/27/24Order Info: 0786-1 - CMP Performed By: #### L 3890.6300, L3890.6100, L3890.6005 #### [facility] [address] [place], [address] Potassium [Moles/Vol] 3.8 mmol/L Normal 3.5-5.1 [facility] Comment on above: Order Comment: Order Date: 04/27/24Order Info: 0786-1 - CMP Performed By: #### L 3890.6300, L3890.6100, L3890.6005 #### [facility] [address] [place], [address] Sodium [Moles/Vol] 138 mmol/L Normal 136-145 [facility] Comment on above: Order Comment: Order Date: 04/27/24Order Info: 0786-1 - CMP Performed By: #### L 3890.6300, L3890.6100, L3890.6005 #### [facility] [address] [place], [address] T PROT 7.7 g/dL Normal 6.4-8.2 [facility] Comment on above: Order Comment: Order Date: 04/27/24Order Info: 0786-1 - CMP Performed By: #### L 3890.6300, L3890.6100, L3890.6005 #### [facility] [address] [place], [address] Urea nitrogen [Mass/Vol] 14 mg/dL Normal 7-18 [facility] Comment on above: Order Comment: Order Date: 04/27/24Order Info: 0786-1 - CMP Performed By: #### L 3890.6300, L3890.6100, L3890.6005 #### [facility] [address] [place], [place], [address] HIV - WCHon 05-07-2024 HIV Non-Reactive Normal Nonreactive [facility] Comment on above: Performed By: #### L 3890.6300, L3890.6100, L3890.6005 #### [facility] [address] [facility] [place], [place], [address] Hepatitis B Surface Antigeno n 05-07-2024 HEP B Surf Ag Non-Reactive Normal Nonreactive [facility] Comment on above: Performed By: #### L 3890.6300, L3890.6100, L3890.6005 #### [facility] [address] [place], [place], [id number] Hepatitis C Antibodyon 05-07 Hepatitis C AB Non-Reactive Normal Nonreactive [facility] Comment on above: Result Comment: Non Reactive: < 0.8 Equivocal: >/= 0.8 to < 1.0 Reactive: >/= 1.0 The CDC requires that a reactive/equivocal HCV antibody result be sent out for confirmation. HCV Quant by PCR testing. Performed By: #### L 3890.6300, L3890.6100, L3890.6005 #### [facility] [address] [place], [place], [address] CNOVon 05-01-2024 CNOV Office Visit (OBGYWM ) -------- DAVID YANES ([id number]) 1960 F Date Time Provider Department 05/01/24 12:20 PM KATRINA KENDRICK During your visit today, we recorded the [...] children. 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 As applicable, any other physician, advance practice provider, medical student, or other health professional student that will be observing or involved in the sensitive examination for educational or training purposes was discussed with the Patient or 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 The Patient or Authorized Master Automotive Technician has agreed to proceed with the sensitive [...] for screening mammogram for breast cancer [Z12.31] Order(s):[facility] SCREENING W JUANA [[id number]] Order #: [id number] FUTURE Prescriptions as of 05/01/2024 - ivermectin 1 % APPLY TOPICALLY TO FACE EVERY DAY - levothyroxine (SYNTHROID) 137 mcg tablet Take 1 tablet by mouth every afternoon. - ferrous sulfate (IRON ORAL) Take by mouth. - doxycycline monohydrate (MONODOX) 50 mg capsule Take 1 capsule by mouth once daily as needed. For roseaca (more content not included)... Normal [facility] SCREENING W TOMOon 04-02 VERÓNICA SCREENING W JUANA * * *Final Report* * * DATE OF EXAM: Apr 02 2024 3:04PM WRW 0582 - [facility] SCREENING W JUANA / PROCEDURE REASON: Encounter for screening mammogram for malignant neoplasm of breast * * * * Physician Interpretation * * * * RESULT: [facility] [address] [place] [address] #[id number] - [facility] SCREENING W JUANA HISTORY: Patient is 64 [...] Lillie Sales M.D. Electronically signed on: 04/05/2024 Wrecking Car Driver: TANG Transcribe Date/Time: Apr 02 2024 2:53P Dictated by: LILLIE SALES MD This examination was interpreted and the report reviewed and electronically signed by: LILLIE SALES MD on Apr 05 2024 3:19PM EST [id number] Normal [facility] Thyroid Peroxidase ABon 12- THYR PEROX AB 10 IU/mL Normal 0-34 [facility] Comment on above: Result Comment: Perf ormed at: [address] [id number] Burlap Worker: Juancho Parsons MD, Phone: [phone] Performed at: [address] [id number] Burlap Worker: Ruddy Marshall PhD, Phone: [phone] Performed By: #### L 3890.6300, [id number], L3890.6008 #### [facility] [address] [place], [place], [id number] Thyroid Stim Immunoglobon THY STIM IMMUNO 0.12 IU/L Normal 0.00-0.55 [facility] Comment on above: Performed By: #### L 3890.6300, L3890.6100, L3890.6005 #### [facility] [address] [place], [place], [address] Miscellaneous Lab Procedureo n 03-17-2024 [facility] LAB TEST Normal [facility] Comment on above: Order Comment: #[id number] THYROTROPIN SERUM RF Result Comment: TEST RESULTS LIMITS Thyrotropin Receptor Ab, Serum <1.10 IU/L 0.00-1.75 TESTING PERFORMED AT [facility]. ORIGINAL REPORT ON FILE IN LAB CONTAINS ADDITIONAL TEST SITE INFORMATION. Performed By: #### L 3890.6300, L3890.6100, L3890.6005 #### [facility] [address] [place], [address] Thyroid Stim Hormone (TSH)on 03-14-2024 TSH 2.140 uIU/mL Normal 0.358-3.740 [facility] Comment on above: Performed By: #### L 3890.6300, L3890.6100, L3890.6005 #### [facility] [address] [place], [place], [address] Free T3on 12-29-2023 Free T3 [Mass/Vol] 3.1 pg/mL Normal 2.18-3.98 [facility] Comment on above: Order Comment: Order Date: 10/25/23 Order Info: 3051-0 - T3F Order Info: 301-3 - TSH Order Info: [id number] - T4F Performed By: #### L 506.0400, L501.15030, L501.9520 #### [facility] [address] [place], [place], [address] T4 Free Directon 12-29-2023 T4 FREE DIRECT 1.39 ng/dL Normal 0.76-1.46 [facility] Comment on above: Order Comment: Order Date: 10/25/23 Order Info: 3051-0 - T3F Order Info: 301-3 - TSH Order Info: 3027 - T4F Performed By: #### L 506.0400, L501.54929, L501.9520 #### [facility] [address] [place], [address] Thyroid Stim Hormone (TSH)on 12-29-2023 TSH 0.366 uIU/mL Normal 0.358-3.740 [facility] Comment on above: Order Comment: Order Date: 10/25/23 Order Info: 3051-0 - T3F Order Info: 3016-3 - TSH Order Info: 3024-7 - T4F Performed By: #### L 506.0400, L501.15255, L501.9520 #### [facility] [address] [place], [address] DBT Breast - right diagnosti c for implanton 10-25-2023 IMPRESSION: NEGATIVE There is no mammographic evidence of malignancy. Return to annual mammogram screening schedule is recommended. Shane carpio/andressa:10/25/2023 15:47:38 Defensive Fire Control Systems Operator(s): RT Pedro(R)(M), [facility] Mammogram BI-RADS: Category 1: Negative Multiple national specialty organizations have released breast cancer screening guidelines for women at average risk for developing breast cancer - guidelines that are based on both evidence and opinion, yet differ on when to start and how often to screen for breast cancer. With representation from Breast Imaging, Internal Medicine, Women's Health, Family Medicine, and Medical/Surgical Oncology, the [facility] has carefully reviewed the data and reached [...] their providers when to stop screening mammograms. Wrecking Car Driver: Andressa Transcribe Date/Time: Oct 25 2023 3:33P Dictated by: SHANE ROWLEY MD This examination was interpreted and the report reviewed and electronically signed by: SHANE ROWLEY MD on Oct 25 2023 3:47PM [facility] DIVISION OF RADIOLOGY * * *Final Report* * * DATE OF EXAM: Oct 25 2023 3:48PM [facility] 0629 - VERÓNICA DIAG W JUANA RT / PROCEDURE REASON: Category 3 mammography result with short follow-up interval suggested for probab * * * * Physician Interpretation * * * * RESULT: #[id number] - VERÓNICA DIAG W JUANA RT UNILATERAL [...] mammogram, 01/07/2022 mammogram, and 12/29/2020 mammogram - [facility]. The right breast is heterogeneously dense, which may obscure small masses. Prior asymmetry is no longer seen in the right breast. The right breast has fibrocystic change. No significant masses, calcifications, or other findings are seen in the breast. DIVISION OF RADIOLOGY Provider, [facility] - 10/25/2023 * * *Final Report* * * DATE OF EXAM: Oct 25 2023 3:48PM [facility] 0629 - VERÓNICA DIAG W JUANA RT / PROCEDURE REASON: Category 3 mammography result with short follow-up interval suggested for probab * * * * Physician Interpretation * * * * RESULT: #[id number] - VERÓNICA DIAG W JUANA RT UNILATERAL [...] mammogram, 01/07/2022 mammogram, and 12/29/2020 mammogram - [facility]. The right breast is heterogeneously dense, which may obscure small masses. Prior asymmetry is no longer seen in the right breast. The right breast has fibrocystic change. No significant masses, calcifications, or other findings are seen in the breast. IMPRESSION IMPRESSION: NEGATIVE There is no mammographic evidence of malignancy. Return to annual mammogram screening schedule is recommended. Shane carpio/andressa:10/25/2023 15:47:38 Defensive Fire Control Systems Operator(s): RT Pedro(R)(M), [facility] Mammogram BI-RADS: Category 1: Negative Multiple national specialty organizations have released breast cancer screening guidelines for women at average risk for developing breast cancer - guidelines that are based on both evidence and opinion, yet differ on when to start and how often to screen for breast cancer. With representation from Breast Imaging, Internal Medicine, Women's Health, Family Medicine, and Medical/Surgical Oncology, the [facility] has carefully reviewed the data and reached [...] their providers when to stop screening mammograms. Wrecking Car Driver: Andressa Transcribe Date/Time: Oct 25 2023 3:33P Dictated by: SHANE ROWLEY MD This examination was interpreted and the report reviewed and electronically signed by: SHANE ROWLEY MD on Oct 25 2023 3:47PM EST [facility] Radiology Study observation (narrative) [facility] DBT Breast - right diagnosti c for implantOrdered By: [facility] Provider on 10-25-2023 [facility] VERÓNICA Lim JUANA RTon 024 VERÓNICA Lim JUANA RT * * *Final Report* * * DATE OF EXAM: Oct 25 2023 3:48PM [facility] 0629 - VERÓNICA TONGG Raphael JUANA RT / PROCEDURE REASON: Category 3 mammography result with short follow-up interval suggested for probab * * * * Physician Interpretation * * * * RESULT: #[id number] - VERÓNICA TONGG Raphael JUANA RT UNILATERAL RIGHT DIGITAL DIAGNOSTIC MAMMOGRAM [...] mammogram, 01/07/2022 mammogram, and 12/29/2020 mammogram - [facility]. The right breast is heterogeneously dense, which may obscure small masses. Prior asymmetry is no longer seen in the right breast. The right breast has fibrocystic change. No significant masses, calcifications, or other findings are seen in the breast. IMPRESSION: NEGATIVE There is no mammographic evidence of malignancy. Return to annual mammogram screening schedule is recommended. Shane carpio/andressa:10/25/2023 15:47:38 Defensive Fire Control Systems Operator(s): Ken Parker RT(R)(M), [facility] Mammogram BI-RADS: Category 1: Negative Multiple national specialty organizations have released breast cancer screening guidelines for women at average risk for developing breast cancer - guidelines that are based on both evidence and opinion, yet differ on when to start and how often to screen for breast cancer. With representation from Breast Imaging, Internal Medicine, Women's Health, Family Medicine, and Medical/Surgical Oncology, the [facility] has carefully reviewed the data and reached [...] their providers when to stop screening mammograms. Wrecking Car Driver: Andressa Transcribe Date/Time: Oct 25 2023 3:33P Dictated by: SHANE ROWLEY MD This examination was interpreted and the report reviewed and electronically signed by: SHANE ROWLEY MD on Oct 25 2023 3:47PM EST [id number] Normal [facility] No Panel InformationOrdered By: Marlon Willoughby on 04-21-2023 Free Triiodothyronine (T3) pg/dL 2.4 pg/mL 2.18-3.98 [facility] Serum or plasma thyroid stim ulating hormone (TSH) measurement (units/volume)Ordered By: Marlon Willoughby on 04-21-2023 TSH Qn 7.56 uIU/mL 0.358-3.74 [facility] Thin prep Papanicolaou smear with manual screeningOrdered By: Marlon Willoughby on 04-21-2023 Thin prep Papanicolaou smear with manual screening 1.16 ng/dL 0.76-1.46 [facility] VERÓNICA SCREENING W Pepe 03-15 [facility] Absolute lymphocyte countOrd ered By: Laura Baron on 02-07-2023 Lymphocytes Auto (Unsp spec) [#/Vol] 1.23 10*3/uL 0.83-4.51 [facility] Basophil percentageOrdered B y: Laura Baron on 02-07-2023 Basophils/100 WBC (Bld) 0.6 % 0-1 [facility] Chloride [Moles/Vol] 106 mmol/L 98-107 [facility] Eosinophils/100 WBC (Bld) 0.6 % 0-5 [facility] Glucose [Mass/Vol] 102 mg/dL 74-106 [facility] Comment on above: Fasting Glucose resu lt from 100 to 125 mg/dL suggests IMPAIRED HOMEOSTASIS per A.D.A. criteria. Neutrophils (Bld) [#/Vol] 4.6 10*3/uL 2.0-7.7 [facility] Neutrophils/100 WBC (Bld) 70.4 % 47-70 [facility] Potassium [Moles/Vol] 3.7 mmol/L 3.5-5.1 [facility] Sodium [Moles/Vol] 139 mmol/L 136-145 [facility] WBC (Bld) [#/Vol] 6.5 10*3/uL 4.4-11.0 [facility] Blood erythrocytes count (nu mber/volume)Ordered By: Laura Baron on 02-07-2023 RBC (Bld) [#/Vol] 4.97 10*6/uL 4.2-5.4 [facility] Blood hemoglobin measurement (mass/volume)Ordered By: Laura Baron on 02-07-2023 Hemoglobin (Bld) [Mass/Vol] 15.7 g/dL 12.0-15.0 [facility] Blood lymphocytes/100 leukoc ytesOrdered By: Laura Baron on 02-07-2023 Lymphocytes/100 WBC (Bld) 18.9 % 19-41 [facility] Blood monocytes/100 leukocyt esOrdered By: Laura Baron on 02-07-2023 Monocytes/100 WBC (Bld) 9.2 % 0-10 [facility] Blood platelet mean volumeOr dered By: Laura Baron on 02-07-2023 Platelet mean volume (Bld) [Entitic vol] 9.2 fL 6.2-12.0 [facility] Determination of erythrocyte mean corpuscular volume (MCV)Ordered By: Laura Baron on 02-07-2023 MCV (RBC) [Entitic vol] 93.4 fL 81-99 [facility] Hematocrit Auto (Bld) [Volum e fraction]Ordered By: Laura Baron on 02-07-2023 Hematocrit (Bld) [Volume fraction] 46.4 % 37-47 [facility] - Chemistry and C hemistry - challengeOrdered By: Laura Baron on 02-07-2023 CO2 [Moles/Vol] 25.0 mmol/L 21.0-32.0 [facility] Urea nitrogen/Creatinine [Mass ratio] 13.0 mg/mg 10-20 [facility] - Drug toxicology Ordered By: Laura Baron on 02-07-2023 Amphetamines Ql (U) Negative <1000 ng/mL [facility] Benzodiazepines Ql (U) Negative < 200 ng/mL [facility] Cannabinoids Screen Ql (U) Negative < 50 ng/mL [facility] Cocaine Ql (U) Negative < 300 ng/mL [facility] Opiates Ql (U) Negative < 300 ng/mL [facility] - Hematology and Cell countsOrdered By: Laura Baron on 02-07-2023 Erythrocyte distribution width (RBC) [Entitic vol] 40.9 fL 35.1-43.9 [facility] Erythrocyte distribution width (RBC) [Ratio] 11.9 % 11.6-14.6 [facility] Immature granulocytes/100 WBC (Bld) 0.300 % 0.0-0.9 [facility] Comment on above: IG% - Immature Granu locytes (promyelocytes, myelocytes and metamyelocytes) > 1% indicates that a LEFT SHIFT is Present. MCH (RBC) [Entitic mass] 31.6 pg 27.0-32.0 [facility] Nucleated RBC/100 WBC (Bld) [Ratio] 0 % 0-5 [facility] MCHC Auto (RBC) [Mass/Vol]Or dered By: Laura Baron on 02-07-2023 MCHC (RBC) [Mass/Vol] 33.8 g/dL 32-36 [facility] No Panel InformationOrdered By: Laura Baron on 02-07-2023 Estimated Creatinine Clearance Calc 68.57 ml/min [facility] Estimated GFR (MDRD) Amer 111 mL/min >60 [facility] Comment on above: GFR Calc Estimated GFR (MDRD) Non-Af Amer 92 mL/min >60 [facility] Comment on above: Non- GFR Calc Ethyl Alcohol Level < 3.0 mg/dL [facility] Comment on above: The serum:whole bloo d ethanol ratio is approximately 1.14and varies slightly with hematocrit. Medical Alcohol reference interval and critical value innon-tolerant individuals; 50 - 100 Impairment 100 Intoxication 100 - 250 Severe Poisoning 250 - 400 Deep/possible fatal coma MDMA (Ecstasy) Screen Negative < 500 ng/mL [facility] Urine Barbiturates Screen Negative < 200 ng/mL [facility] Urine Drug Screen Comment [facility] Comment on above: CONFIRMATORY TESTING FOR ALL [...] Urine Methadone Screen Negative < 300 ng/mL [facility] Platelets bldOrdered By: Pacheco Baron on 02-07-2023 Platelets (Bld) [#/Vol] 275 10*3/uL 150-450 [facility] Serum or plasma calcium connie urement (mass/volume)Ordered By: Laura Baron on 02-07-2023 Calcium [Mass/Vol] 9.9 mg/dL 8.5-10.1 [facility] Serum or plasma creatinine m easurement (mass/volume)Ordered By: Laura Baron on 02-07-2023 Creatinine [Mass/Vol] 0.69 mg/dL 0.55-1.02 [facility] Comment on above: The validity of the calculated GFR & GFRAA in patients over 70 years has not been determined. Clinical correlation is essential. Serum or plasma urea nitroge n measurement (mass/volume)Ordered By: Laura Baron on 02-07-2023 Urea nitrogen [Mass/Vol] 9 mg/dL 7-18 [facility] Thin prep Papanicolaou smear with manual screeningOrdered By: Laura Baron on 02-07-2023 Thin prep Papanicolaou smear with manual screening 8 5-15 [facility] Urine phencyclidine (PCP) de tectionOrdered By: Laura Baron on 02-07-2023 Phencyclidine Ql (U) Negative < 25 ng/mL [facility] Laboratory - Chemistry and C hemistry - challengeOrdered By: Marlon Willoughby on 01-31-2023 Free T4 [Mass/Vol] 1.17 ng/dL 0.76-1.46 [facility] No Panel InformationOrdered By: Marlon Willoughby on 01-31-2023 Free Triiodothyronine (T3) pg/dL 2.6 pg/mL 2.18-3.98 [facility] Thyroid Stimulating Hormone (TSH) 8.45 uIU/mL 0.358-3.74 [facility] Basophil percentageOrdered B y: Marlon Willoughby on 11-25-2022 Cholesterol [Mass/Vol] 237 mg/dL <200 [facility] Comment on above: <200 mg/dL Desirable 200-240 mg/dL Borderline >240 mg/dL High Risk Triglyceride [Mass/Vol] 91 mg/dL <199 [facility] Comment on above: The drugs N-Acetylcy steine and Metamizole may falsely depress this assay.Serum Triglycerides Reference Interval Normal <150 mg/dL Borderline high 150 - 199 mg/dL High 200 - 499 mg/dL Very High > or = 500 mg/dL Laboratory - Chemistry and C hemistry - challengeOrdered By: Marlon Willoughby on 11-25-2022 Free T4 [Mass/Vol] 1.31 ng/dL 0.76-1.46 [facility] No Panel InformationOrdered By: Marlon Willoughby on 11-25-2022 Free Triiodothyronine (T3) pg/dL 2.4 pg/mL 2.18-3.98 [facility] Thyroid Stimulating Hormone (TSH) 6.69 uIU/mL 0.358-3.74 [facility] Serum or plasma cholesterol in HDL measurement (mass/volume)Ordered By: Marlon Willoughby on 11-25-2022 Cholesterol in HDL [Mass/Vol] 73 mg/dL >40 [facility] Comment on above: The drugs N-Acetylcy steine and Metamizole may falsely depress this assay. Reference Range HDL <40 mg/dL Low HDL Cholesterol HDL >or= 60 mg/dL High HDL Cholesterol Serum or plasma cholesterol in VLDL measurement (mass/volume)Ordered By: Marlon Willoughby on 11-25-2022 Cholesterol in VLDL [Mass/Vol] 18 mg/dL 5-40 [facility] Serum or plasma low density lipoprotein (LDL) cholesterol measurement (mass/volume)Ordered By: Marlon Willoughby on 11-25-2022 Cholesterol in LDL [Mass/Vol] 146 mg/dL 0-130 [facility] Basophil percentageOrdered B y: Dr. Willoughby on 06-11-2022 Bilirubin [Mass/Vol] 0.50 mg/dL 0.20-1.00 [facility] Comment on above: For patients on eltr ombopag therapy, use of Dimension Sparks TBIL is not recommended. Chloride [Moles/Vol] 105 mmol/L 98-107 [facility] Cholesterol [Mass/Vol] 256 mg/dL <200 [facility] Comment on above: <200 mg/dL Desirable 200-240 mg/dL Borderline >240 mg/dL High Risk Glucose [Mass/Vol] 103 mg/dL 74-106 [facility] Comment on above: Fasting Glucose resu lt from 100 to 125 mg/dL suggests IMPAIRED HOMEOSTASIS per A.D.A. criteria. Potassium [Moles/Vol] 4.3 mmol/L 3.5-5.1 [facility] Protein [Mass/Vol] 7.6 g/dL 6.4-8.2 [facility] Sodium [Moles/Vol] 138 mmol/L 136-145 [facility] Triglyceride [Mass/Vol] 150 mg/dL <199 [facility] Comment on above: The drugs N-Acetylcy steine and Metamizole may falsely depress this assay.Serum Triglycerides Reference Interval Normal <150 mg/dL Borderline high 150 - 199 mg/dL High 200 - 499 mg/dL Very High > or = 500 mg/dL Laboratory - Chemistry and C hemistry - challengeOrdered By: Dr. Willoughby on 06-11-2022 ALP [Catalytic activity/Vol] 83 U/L 45-117 [facility] ALT [Catalytic activity/Vol] 47 U/L 13-56 [facility] CO2 [Moles/Vol] 27.0 mmol/L 21.0-32.0 [facility] Globulin (S) [Mass/Vol] 3.8 g/dL 2.2-4.2 [facility] Urea nitrogen/Creatinine [Mass ratio] 25.8 mg/mg 10-20 [facility] No Panel InformationOrdered By: Dr. Willoughby on 06-11-2022 Estimated GFR (MDRD) Amer 92 mL/min >60 [facility] Comment on above: GFR Calc Estimated GFR (MDRD) Non-Af Amer 76 mL/min >60 [facility] Comment on above: Non- GFR Calc Thyroid Stimulating Hormone (TSH) 3.91 uIU/mL 0.358-3.74 [facility] Urine Microalbumin/Creatini ne Ratio 7.8 mg/g CRE <30 [facility] Serum or plasma albumin connie urement (mass/volume)Ordered By: Dr. Willoughby on 06-11-2022 Albumin [Mass/Vol] 3.8 g/dL 3.2-5.0 [facility] Serum or plasma albumin/glob ulin mass ratioOrdered By: Dr. Willoughby on 06-11-2022 Albumin/Globulin [Mass ratio] 1.0 {ratio} 0.9-2.4 [facility] Serum or plasma calcium connie urement (mass/volume)Ordered By: Dr. Willoughby on 06-11-2022 Calcium [Mass/Vol] 9.4 mg/dL 8.5-10.1 [facility] Serum or plasma cholesterol in HDL measurement (mass/volume)Ordered By: Dr. Willoughby on 06-11-2022 Cholesterol in HDL [Mass/Vol] 65 mg/dL >40 [facility] Comment on above: The drugs N-Acetylcy steine and Metamizole may falsely depress this assay. Reference Range HDL <40 mg/dL Low HDL Cholesterol HDL >or= 60 mg/dL High HDL Cholesterol Serum or plasma cholesterol in VLDL measurement (mass/volume)Ordered By: Dr. Willoughby on 06-11-2022 Cholesterol in VLDL [Mass/Vol] 30 mg/dL 5-40 [facility] Serum or plasma creatinine m easurement (mass/volume)Ordered By: Dr. Willoughby on 06-11-2022 Creatinine [Mass/Vol] 0.82 mg/dL 0.55-1.02 [facility] Comment on above: The validity of the calculated GFR & GFRAA in patients over 70 years has not been determined. Clinical correlation is essential. Serum or plasma ferritin lexi surement (mass/volume)Ordered By: Dr. Willoughby on 06-11-2022 Ferritin [Mass/Vol] 160 ng/mL 8-252 [facility] Serum or plasma low density lipoprotein (LDL) cholesterol measurement (mass/volume)Ordered By: Dr. Willoughby on 06-11-2022 Cholesterol in LDL [Mass/Vol] 161 mg/dL 0-130 [facility] Serum or plasma urea nitroge n measurement (mass/volume)Ordered By: Dr. Willoughby on 06-11-2022 Urea nitrogen [Mass/Vol] 21 mg/dL 7-18 [facility] Thin prep Papanicolaou smear with manual screeningOrdered By: Dr. Willoughby on 06-11-2022 Thin prep Papanicolaou smear with manual screening 26 U/L 15-37 [facility] Thin prep Papanicolaou smear with manual screening 6 5-15 [facility] Thin prep Papanicolaou smear with manual screening 11.3 mg/L NO RANGE EST. [facility] Urine creatinine measurement (mass/volume)Ordered By: Dr. Willoughby on 06-11-2022 Creatinine (U) [Mass/Vol] 144.00 mg/dL NO RANGE EST. [facility] VERÓNICA MOY W JUANA LTon 022 [facility] Absolute lymphocyte counton 07-21-2021 Lymphocytes Auto (Unsp spec) [#/Vol] 1.07 10*3/uL 0.83-4.51 [facility] Work Phone: Basophil percentageon 2021 Basophils/100 WBC (Bld) 0.6 % 0-1 [facility] Work Phone: Bilirubin [Mass/Vol] 0.40 mg/dL 0.20-1.00 [facility] [place] Work Phone: Comment on above: For patients on eltr ombopag therapy, use of Dimension Sparks TBIL is not recommended. Chloride [Moles/Vol] 105 mmol/L 98-107 [facility] [place] Work Phone: Cholesterol [Mass/Vol] 238 mg/dL <200 [facility] Work Phone: Comment on above: <200 mg/dL Desirable 200-240 mg/dL Borderline >240 mg/dL High Risk Eosinophils/100 WBC (Bld) 2.1 % 0-5 [facility] Work Phone: Glucose [Mass/Vol] 96 mg/dL 74-106 [facility] Work Phone: Neutrophils (Bld) [#/Vol] 3.2 10*3/uL 2.0-7.7 [facility] Work Phone: [phone] Neutrophils/100 WBC (Bld) 66.9 % 47-70 [facility] Work Phone: Potassium [Moles/Vol] 4.2 mmol/L 3.5-5.1 [facility] Work Phone: Protein [Mass/Vol] 8.5 g/dL 6.4-8.2 [facility] Work Phone: Sodium [Moles/Vol] 138 mmol/L 136-145 [facility] Work Phone: Triglyceride [Mass/Vol] 147 mg/dL [facility] Work Phone: Comment on above: The drugs N-Acetylcy steine and Metamizole may falsely depress this assay.Serum Triglycerides Reference Interval Normal <150 mg/dL Borderline high 150 - 199 mg/dL High 200 - 499 mg/dL Very High > or = 500 mg/dL WBC (Bld) [#/Vol] 4.8 10*3/uL 4.4-11.0 [facility] Work Phone: Blood erythrocytes count (nu mber/volume)on 07-21-2021 RBC (Bld) [#/Vol] 4.96 10*6/uL 4.2-5.4 [facility] Work Phone: Blood hemoglobin measurement (mass/volume)on 07-21-2021 Hemoglobin (Bld) [Mass/Vol] 10.8 g/dL 12.0-15.0 [facility] Work Phone: Blood lymphocytes/100 leukoc yteson 07-21-2021 Lymphocytes/100 WBC (Bld) 22.3 % 19-41 [facility] Work Phone: Blood monocytes/100 leukocyt eson 07-21-2021 Monocytes/100 WBC (Bld) 7.9 % 0-10 [facility] Work Phone: Blood platelet mean volumeon 07-21-2021 Platelet mean volume (Bld) [Entitic vol] 9.5 fL 6.2-12.0 [facility] Work Phone: Determination of erythrocyte mean corpuscular volume (MCV)on 07-21-2021 MCV (RBC) [Entitic vol] 72.6 fL 81-99 [facility] Work Phone: Hematocrit Auto (Bld) [Volum e fraction]on 07-21-2021 Hematocrit (Bld) [Volume fraction] 36.0 % 37-47 [facility] Work Phone: Iron measurement (mass/mass) on 07-21-2021 Iron (Unsp spec) [Mass/Mass] 30 ug/dL 50-170 [facility] Work Phone: Laboratory - Chemistry and C hemistry - challengeon 07-21-2021 ALP [Catalytic activity/Vol] 107 U/L 45-117 [facility] Work Phone: ALT [Catalytic activity/Vol] 49 U/L 13-56 [facility] Work Phone: CO2 [Moles/Vol] 25.0 mmol/L 21.0-32.0 [facility] Work Phone: Globulin (S) [Mass/Vol] 4.5 g/dL 2.2-4.2 [facility] Work Phone: Magnesium [Mass/Vol] 2.5 mg/dL 1.6-2.6 [facility] Work Phone: Urea nitrogen/Creatinine [Mass ratio] 16.9 mg/mg 10-20 [facility] Work Phone: Laboratory - Hematology and Cell countson 07-21-2021 Erythrocyte distribution width (RBC) [Entitic vol] 45.8 fL 35.1-43.9 [facility] Work Phone: Erythrocyte distribution width (RBC) [Ratio] 17.6 % 11.6-14.6 [facility] Work Phone: Immature granulocytes/100 WBC (Bld) 0.200 % 0.0-0.9 [facility] Work Phone: Comment on above: IG% - Immature Granu locytes (promyelocytes, myelocytes and metamyelocytes) > 1% indicates that a LEFT SHIFT is Present. MCH (RBC) [Entitic mass] 21.8 pg 27.0-32.0 [facility] Work Phone: Nucleated RBC/100 WBC (Bld) [Ratio] 0 % 0-5 [facility] Work Phone: MCHC Auto (RBC) [Mass/Vol]on 07-21-2021 MCHC (RBC) [Mass/Vol] 30.0 g/dL 32-36 [facility] Work Phone: No Panel Informationon 07-21 Urine Microalbumin/Creatini ne Ratio 7.5 mg/g CRE <30 [facility] Work Phone: Estimated GFR (MDRD) Amer 84 mL/min >60 [facility] Work Phone: Comment on above: GFR Calc Estimated GFR (MDRD) Non-Af Amer 69 mL/min >60 [facility] Work Phone: Comment on above: Non- GFR Calc Thyroid Stimulating Hormone (TSH) 0.52 uIU/mL 0.358-3.74 [facility] Work Phone: Total Iron Binding Capacity 496 ug/dL 250-450 [facility] Work Phone: Platelets bldon 07-21-2021 Platelets (Bld) [#/Vol] 442 10*3/uL 150-450 [facility] Work Phone: Serum or plasma albumin connie urement (mass/volume)on 07-21-2021 Albumin [Mass/Vol] 4.0 g/dL 3.2-5.0 [facility] Work Phone: Serum or plasma albumin/glob ulin mass ratioon 07-21-2021 Albumin/Globulin [Mass ratio] 0.9 {ratio} 0.9-2.4 [facility] Work Phone: Serum or plasma calcium connie urement (mass/volume)on 07-21-2021 Calcium [Mass/Vol] 9.1 mg/dL 8.5-10.1 [facility] Work Phone: Serum or plasma cholesterol in HDL measurement (mass/volume)on 07-21-2021 Cholesterol in HDL [Mass/Vol] 61 mg/dL [facility] Work Phone: Comment on above: The drugs N-Acetylcy steine and Metamizole may falsely depress this assay. Reference Range HDL <40 mg/dL Low HDL Cholesterol HDL >or= 60 mg/dL High HDL Cholesterol Serum or plasma cholesterol in VLDL measurement (mass/volume)on 07-21-2021 Cholesterol in VLDL [Mass/Vol] 29 mg/dL 5-40 [facility] Work Phone: Serum or plasma creatinine m easurement (mass/volume)on 07-21-2021 Creatinine [Mass/Vol] 0.88 mg/dL 0.55-1.02 [facility] Work Phone: Comment on above: The validity of the calculated GFR & GFRAA in patients over 70 years has not been determined. Clinical correlation is essential. Serum or plasma ferritin lexi surement (mass/volume)on 07-21-2021 Ferritin [Mass/Vol] 11 ng/mL 8-252 [facility] Work Phone: Serum or plasma iron saturat ion measurement (mass fraction)on 07-21-2021 Iron saturation [Mass fraction] 6.0 % 15.0-55.0 [facility] Work Phone: Serum or plasma low density lipoprotein (LDL) cholesterol measurement (mass/volume)on 07-21-2021 Cholesterol in LDL [Mass/Vol] 148 mg/dL 0-130 [facility] Work Phone: Serum or plasma urea nitroge n measurement (mass/volume)on 07-21-2021 Urea nitrogen [Mass/Vol] 15 mg/dL 7-18 [facility] Work Phone: Thin prep Papanicolaou smear with manual screeningon 07-21-2021 Thin prep Papanicolaou smear with manual screening 14.7 mg/L NO RANGE EST. [facility] Work Phone: Thin prep Papanicolaou smear with manual screening 25 U/L 15-37 [facility] Work Phone: Thin prep Papanicolaou smear with manual screening 8 5-15 [facility] Work Phone: Urine creatinine measurement (mass/volume)on 07-21-2021 Creatinine (U) [Mass/Vol] 197.00 mg/dL NO RANGE EST. [facility] Work Phone: Stool Helicobacter pylori an tigen detection by immunoassayon 05-05-2021 H. pylori Ag IA Ql (Stl) Negative Negative [facility] Work Phone: Comment on above: Performed at: [address] [id number] Director: Juancho Parsons MD, Phone: [phone] Culture, urineon 04-06-2021 Bacteria identified Cx Nom (U) Klebsiella pneumoniae sp pneum [facility] Work Phone: Vital Signs Date Time Vital Sign Value Performing Clinician Faci lity 05-01-2024 12:24-0500 Body height 157.5 cm Katrina Kendrick MD Work Phone: [facility] 05-01-2024 12:24-0500 Body mass index (BMI) [Ratio] 25.06 kg/m2 Katrina Kendrick MD Work Phone: [facility] 05-01-2024 12:24-0500 Body weight 62.14 kg Katrina Kendrick MD Work Phone: [facility] 05-01-2024 12:24-0500 Diastolic blood pressure 86 mm[Hg] Katrina Kendrick MD Work Phone: [facility] 05-01-2024 12:24-0500 Systolic blood pressure 126 mm[Hg] Katrina Kendrick MD Work Phone: [facility] 07-20-2023 07:30-0400 Body temperature 97.6 [degF] Dr. Marlon Willoughby Work Phone: [facility] 07-20-2023 07:30-0400 Diastolic blood pressure 71 mm[Hg] Dr. Marlon Willoughby Work Phone: [facility] 07-20-2023 07:30-0400 Heart rate 71 /min Dr. Marlon Willoughby Work Phone: [facility] 07-20-2023 07:30-0400 Respiratory rate 16 /min Dr. Marlon Willoughby Work Phone: [facility] 07-20-2023 07:30-0400 SaO2% (BldA) [Mass fraction] 100 % Dr. Marlon Willoughby Work Phone: [facility] 07-20-2023 07:30-0400 Systolic blood pressure 118 mm[Hg] Dr. Marlon Willoughby Work Phone: [facility] 07-20-2023 05:47-0400 Body height 157.[address] Marlon Willoughby Work Phone: [facility] 07-20-2023 05:47-0400 Body mass index (BMI) [Ratio] 23.9 kg/m2 Dr. Marlon Willoughby Work Phone: [facility] 07-20-2023 05:47-0400 Body weight 59.[address] Marlon Willoughby Work Phone: [facility] 05-05-2023 09:33-0500 Body mass index (BMI) [Ratio] 24.1 kg/m2 Dr. Marlon Willoughby Work Phone: [facility] 05-05-2023 09:33-0500 Body weight 59.[address] Marlon Willoughby Work Phone: [facility] 02-07-2023 22:35-0500 Diastolic blood pressure 75 mm[Hg] [facility] 11-06-2023 22:35-0500 Heart rate 90 /min [facility] 02-07-2023 22:35-0500 Respiratory rate 16 /min [facility] 02-07-2023 22:35-0500 SaO2% (BldA) [Mass fraction] 99 % [facility] 02-07-2023 22:35-0500 Systolic blood pressure 125 mm[Hg] [facility] 02-07-2023 18:36-0500 Body height 157.48 cm [facility] 02-07-2023 18:36-0500 Body mass index (BMI) [Ratio] 23.6 kg/m2 [facility] 02-07-2023 18:36-0500 Body temperature 97.9 [degF] [facility] 02-07-2023 18:36-0500 Body weight 58.51 kg [facility] 02-19-2022 14:04-0500 Body height 157.5 cm Katrina Kendrick MD Work Phone: [facility] 02-19-2022 14:04-0500 Body weight 60.51 kg Katrina Kendrick MD Work Phone: [facility] 02-19-2022 14:04-0500 Diastolic blood pressure 82 mm[Hg] Katrina Kendrick MD Work Phone: [facility] 02-19-2022 14:04-0500 Systolic blood pressure 124 mm[Hg] Katrina Kendrick MD Work Phone: [facility] Encounters Encounter Date Encounter Type Care Provider Facility Start: 11-07-2024 End: 11-07-[address] Marlon Willoughby MD Work Phone: -[facility] Start: 11-07-2024 End: 11-07-[address] Marlon Willoughby MD -[facility] Start: 11-07-2024 End: 11-07-2024 ambulatory Marlon Willoughby Facility:[facility] Start: 05-21-2024 Encounter for other preprocedural examination Marlon Willoughby [facility] Start: 05-07-2024 End: 05-07-2024 ambulatory Marlon Willoughby Facility:[facility] Start: 05-01-2024 End: 05-01-2024 ambulatory KATRINA KENDRICK Facility:[facility] Start: 05-01-2024 End: 05-01-2024 Patient encounter procedure Katrina Kendrick MD Work Phone: OB/Gynecology Comment on above: Encounter for gyneco logical examination (general) (routine) without abnormal findings (Primary Dx); Encounter for screening mammogram for breast cancer Start: 05-01-2024 End: 05-01-2024 Patient encounter status Katrina Kendrick MD Work Phone: [facility] Start: 04-02-2024 End: 04-02-2024 ambulatory KATRINA KENDRICK Facility:[facility] Start: 04-02-2024 End: 04-02-2024 Subsequent hospital visit by physician Screen Mammo [facility] Comment on above: Encounter for screen ing mammogram for malignant neoplasm of breast [Z12.31] Start: 03-14-2024 End: 03-14-2024 ambulatory Marlon Willoughby Facility:[facility] Start: 12-29-2023 End: 12-29-2023 ambulatory Marlon Willoughby Facility:[facility] Start: 10-25-2023 End: 10-25-2023 ambulatory KATRINA KENDRICK Facility:[facility] Start: 10-25-2023 End: 10-25-2023 Subsequent hospital visit by physician Diagnostic Mammo [facility] Start: 07-20-2023 Non-patient / Non-visit Dr. Mahesh Willoughby Work Phone: [facility] Start: 07-20-2023 End: 07-20-2023 Admission to same day surgery center Dr. Marlon Willoughby Work Phone: [facility] Work Phone: Start: 07-20-2023 End: 07-20-[address] Marlon Willoughby Work Phone: [facility] Work Phone: Start: 05-05-2023 Non-patient / Non-visit Dr. Mahesh Willoughby Work Phone: [facility] Work Phone: Start: 04-21-2023 End: 04-21-2023 ambulatory [facility] Work Phone: Start: 04-21-2023 End: 04-21-2023 Patient encounter procedure [place] Start: 04-12-2023 Telephone encounter Katrina velasquez MD Work Phone: OB/Gynecology Comment on above: Orders Start: 03-16-2023 Documentation procedure Mammog shelly Coordinator [facility] Start: 03-16-2023 Letter encounter Mammography Coordinator [facility] Department Start: 03-16-2023 Telephone encounter Katrina velasquez MD Work Phone: OB/Gynecology Comment on above: Orders Start: 03-15-2023 End: 03-15-2023 Subsequent hospital visit by physician Screen Mammo [facility] Comment on above: Encounter for screen ing mammogram for malignant neoplasm of breast [Z12.31] Start: 02-07-2023 End: 02-08-2023 [facility]: Start: 01-31-2023 End: 01-31-2023 ambulatory [facility] Work Phone: Start: 01-31-2023 End: 01-31-2023 Patient encounter procedure [place] Start: 11-25-2022 End: 11-25-2022 ambulatory [facility] Work Phone: Start: 11-25-2022 End: 11-25-2022 Patient encounter procedure [place] Start: 06-11-2022 End: 06-11-2022 ambulatory [facility] Work Phone: Start: 06-11-2022 End: 06-11-2022 Patient encounter procedure [place] Start: 02-19-2022 End: 02-19-2022 Patient encounter procedure Katrina Kendrick MD Work Phone: OB/Gynecology Comment on above: Encounter for gyneco logical examination without abnormal finding (Primary Dx); Encounter for screening mammogram for malignant neoplasm of breast; Dense breasts Start: 02-19-2022 End: 02-19-2022 Patient encounter status Katrina Kendrick MD Work Phone: OB/Gynecology Start: 02-10-2022 End: 02-10-2022 Subsequent hospital visit by physician Diagnostic Mammo [facility] Start: 01-08-2022 Documentation procedure Mammog shelly Coordinator [facility] Start: 01-08-2022 Letter encounter Mammography Coordinator [facility] Department Start: 01-08-2022 Telephone encounter Rosalind [facility] [employer] DIRECTOR.MENTAL HEALTH CASE MANAGER Work Phone: OB/Gynecology Comment on above: Orders Mammogram Result Kyle l Back Start: 07-21-2021 End: 07-21-2021 Patient encounter procedure [facility] Start: 05-05-2021 End: 05-05-2021 Patient encounter procedure [facility], Specimen Start: 04-06-2021 End: 04-06-2021 Patient encounter procedure [facility], Specimen Procedures Date Procedure Procedure Detail Performing Clinician Start: 10-25-2023 Digital breast tomosynthesis unilateral Katrina Kendrick MD Work Phone: Start: 07-20-[address] Marlon quintero Work Phone: Start: 03-15-2023 Screening digital br east tomosynthesis bi Katrina Kendrick MD Work Phone: Start: 02-10-2022 VERÓNICA DIAG W JUANA LEFT Re ne[place] [employer] DIRECTOR.MENTAL HEALTH CASE MANAGER Work Phone: Start: 01-07-2022 Mammography Rosalind [facility] [employer] DIRECTOR.MENTAL HEALTH CASE MANAGER Work Phone: Start: 04-06-2021 Urine culture Start: 10-02-2014 Colonoscopy [facility] [employer] DIRECTOR.MENTAL HEALTH CASE MANAGER Work Phone: Start: 08-02-2010 Lipid 1996 panel - S junito or Plasma Diagnostic Wstr Plan of Treatment Date Care Activity Detail Author Start: 2037 RSV Vaccine (1 - 1-d ose 75+ series) RSV Vaccine (1 - 1-dose 75+ series) [facility] Start: 02-19-2029 Urine microalbumin profile DTaP,Tdap,Td Vaccine (2 - Td or Tdap) [facility] Start: 01-20-2026 HPV TESTING HPV TESTING [facility] Start: 01-20-2026 PAP TESTING PAP TESTING [facility] Start: 01-20-2026 Screening for malign ant neoplasm of cervix [facility] Start: 05-02-2025 End: 05-02-2025 Patient encounter procedure Mammogram Comment on above: Encounter for screen ing mammogram for breast cancer [Z12.31] Annual Start: 04-02-2025 Screening for malign ant neoplasm of breast Mammogram Screening [facility] Start: 05-01-2024 End: 05-01-2024 Patient encounter procedure 05/01/2024 3:40 PM EST Office Visit OB/Gynecology [address] [place] [address] Katrina Kendrick MD [address] [place] [address] ANNUAL OB/Gynecology Comment on above: ANNUAL Start: 04-27-2024 End: 04-27-2024 Patient encounter procedure 04/27/2024 1:20 PM EST Office Visit OB/Gynecology [address] [place] [address] Katrina Kendrick MD [address] [place] [address] ANNUAL OB/Gynecology Comment on above: ANNUAL Start: 03-15-2024 Screening for malign ant neoplasm of breast Mammogram Screening [facility] Start: 12-04-2023 Covid-19 Vaccine () Covid-19 Vaccine () [facility] Start: 12-04-2023 Influenza vaccination Influenza Vacc ine (#1) [facility] Start: 07-20-2023 Patient discharge [facility] Start: 04-04-2023 Depression Assessment Depression Ass essment [facility] Start: 04-04-2023 zzBehavioral Health Screening zzBehavioral Health Screening [facility] Start: 02-08-2023 [facility] Start: 02-07-2023 Consultation [facility] Start: 02-07-2023 Suicide precautions [facility] Start: 01-07-2023 Mammography [facility] Start: 12-03-2022 Covid-19 Vaccine () Covid-19 Vaccine () [facility] Start: 12-03-2022 Influenza vaccination Influenza Vacc ine (#1) [facility] Start: 04-04-2022 Depression Assessment Depression Ass essment [facility] Start: 2022 RSV Vaccine (1 - 1-d ose 60+ series) RSV Vaccine (1 - 1-dose 60+ series) [facility] Start: 12-03-2021 Influenza vaccination INFLUENZA (#1) [facility] Start: 04-04-2021 DEPRESSION ASSESSMENT DEPRESSION ASS ESSMENT [facility] Start: 10-03-2015 Colonoscopy COLONOSCOPY [facility] Start: 10-03-2015 COLORECTAL CANCER SCREENING COLORECTAL CANCER SCREENING [facility] Start: 10-03-2015 Screening for malign ant neoplasm of colon [facility] Start: 08-03-2015 Lipid 1996 panel - S junito or Plasma Lipid Screening [facility] Start: 08-03-2015 Lipid panel Lipid Screening [facility] Start: 08-03-2015 LIPID SCREEN LIPID SCREEN [facility] Start: 02-19-2012 Pneumococcal Vaccine : 50+ (1 of 1 - PCV) Pneumococcal Vaccine: 50+ (1 of 1 - PCV) [facility] Start: 02-19-2012 SHINGRIX VACCINE (1 of 2) SHINGRIX VACCINE (1 of 2) [facility] Start: 2007 COLOGUARD (FIT-DNA) COLOGUARD (FIT-D NA) [facility] Start: [address] COLONOGRAPHY [facility] Start: 2007 DIABETES SCREEN DIABETES SCREEN [facility] Start: 2007 Diabetes Screening Diabetes Screenin g [facility] Start: 2007 FECAL OCCULT BLOOD FECAL OCCULT BLOO D [facility] Start: 2007 Screening for malign ant neoplasm of colon [facility] Start: 2007 SIGMOIDOSCOPY SIGMOIDOSCOPY [facility] Start: 1981 Urine microalbumin profile DTAP,TDAP,TD (1 - Tdap) [facility] Start: 02-19-1980 ANNUAL PCP TEAM CONTROL ROOM HELPER PACHECO DISEASE VISIT ANNUAL PCP TEAM CHRONIC DISEASE VISIT [facility] Start: 02-19-1980 Anxiety Screening Anxiety Screening [facility] Start: 02-19-1980 Depression Screening Depression Scre ening [facility] Start: 02-19-1980 HEPATITIS C SCREENING HEPATITIS C [facility] Start: 02-19-1980 Hepatitis C screening Hepatitis C [facility] Start: 02-19-1980 HIV SCREENING HIV SCREENING [facility] Start: 02-19-1980 HIV screening HIV Screening [facility] Start: 1960 COVID-19 VACCINE (#1) COVID-19 VACCI NE (#1) [facility] Colonoscopy [facility] DBT Breast - bilater al screening VERÓNICA SCREENING W [place] Radiology Routine Encounter for screening mammogram for malignant neoplasm of breast 04/02/2024 3:04 PM EST [facility] Work Phone: End: 05-31-2025 DBT Breast - bilateral screening VERÓNICA SCREENING W [place] Radiology Routine Encounter for gynecological examination (general) (routine) without abnormal findings Encounter for screening mammogram for breast cancer 1 Occurrences starting 05/01/2024 until 05/31/2025 [facility] Work Phone: Comment on above: 1 Occurrences starti ng 05/01/2024 until 05/31/2025 End: 02-07-2023 Diagnostic mammography computer-aided detcj uni VERÓNICA DIAGNOSTIC LT Radiology Routine Abnormal mammogram 1 Occurrences starting 01/08/2022 until 02/07/2023 [facility] Work Phone: Comment on above: 1 Occurrences starti ng 01/08/2022 until 02/07/2023 End: 04-14-2024 VERÓNICA DIAGNOSTIC RIGHT VERÓNICA DIAGNOSTIC RIGHT Radiology Routine Abnormal mammogram 1 Occurrences starting 03/17/2023 until 04/14/2024 [facility] Work Phone: Comment on above: 1 Occurrences starti ng 03/17/2023 until 04/14/2024 End: 05-11-2024 VERÓNICA DIAGNOSTIC RIGHT VERÓNICA DIAGNOSTIC RIGHT Radiology Routine Category 3 mammography result with short follow-up interval suggested for probably benign finding 1 Occurrences starting 04/12/2023 until 05/11/2024 [facility] Work Phone: Comment on above: 1 Occurrences starti ng 04/12/2023 until 05/11/2024 End: 03-21-2023 VERÓNICA SCREENING W JUANA VERÓNICA SCREENING W JUANA Radiology Routine Encounter for screening mammogram for malignant neoplasm of breast Dense breasts 1 Occurrences starting 02/19/2022 until 03/21/2023 [facility] Work Phone: Comment on above: 1 Occurrences starti ng 02/19/2022 until 03/21/2023 Patient Education ED Depression [facility] Work Phone: Patient referral [facility] Work Phone: End: 04-14-2024 US BREAST LTD RIGHT US BREAST LTD RIGHT Radiology Routine Abnormal mammogram 1 Occurrences starting 03/17/2023 until 04/14/2024 [facility] Work Phone: Comment on above: 1 Occurrences starti ng 03/17/2023 until 04/14/2024 End: 05-11-2024 US BREAST LTD RIGHT US BREAST LTD RIGHT Radiology Routine Category 3 mammography result with short follow-up interval suggested for probably benign finding 1 Occurrences starting 04/12/2023 until 05/11/2024 [facility] Work Phone: Comment on above: 1 Occurrences starti ng 04/12/2023 until 05/11/2024 End: 02-07-2023 Us breast uni real time with image limited US BREAST LTD LT Radiology Routine Abnormal mammogram 1 Occurrences starting 01/08/2022 until 02/07/2023 [facility] Work Phone: Comment on above: 1 Occurrences starti ng 01/08/2022 until 02/07/2023 [facility] Payers Date Payer Category Payer Self-pay [id number] 2018 Unknown [id number] 2018 Unknown [id number] Unknown [id number] Unknown [id number] Unknown [id number] Unknown [id number] Social History Date Type Detail Facility Start: 04-28-2018 End: 07-14-2023 Tobacco smoking status [facility] Unknown if ever smoked [facility] Start: 04-28-2018 Non-smoker [facility] Start: 1960 Sex Assigned At Female [facility] Start: 05-17-2011 End: 07-14-2023 Tobacco smoking status AKIS Never smoked tobacco [facility] Start: 05-17-2011 End: 02-19-2022 Tobacco use and exposure Smokeless tobacco non-user [facility] Start: 01-20-2021 End: 05-01-2024 Alcohol intake Current drinker of alcohol (finding) [facility] Start: 12-06-2021 End: 02-10-2022 Exposure to SARS-CoV-2 (event) Not sure [facility] Work Phone: Start: 01-20-2021 End: 03-15-2023 History of Social function [facility] Start: 01-20-2021 End: 03-15-2023 Tobacco use panel [facility] National Score (1-10 0), lower number is lower risk Not on file [facility] Start: 12-27-2019 Gender identity Identifies as female gender (finding) [facility] Start: 12-27-2019 Sexual orientation Heterosexual (clarence carrizales) [facility] Goals Date Patient Goal Desired Activity /State Mental Status Date Assessment Result Facility 04-17-2024 Cognitive function Voice/Name [facility] Work Phone: Clinical Notes 11-18-2005 to 05-01-2024 Katrina Kendrick MD - 05/01/2024 12:19 PM Elana Gutierrez, Mammo Tech - 04/02/2024 2:50 PM SERGEIbladekim Ken, Mammo Tech - 10/25/2023 3:30 PM Ken García Mammo Tech - 03/15/2023 1:10 PM EST Note Date & Type Note Facility 05-01-2024 Note HNO ID: [id number] Author: KATRINA KENDRICK MD Service: ? Author [...] children. 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 As applicable, any other physician, advance practice provider, medical student, or other health professional student that will be observing or involved in the sensitive examination for educational or training purposes was discussed with the Patient or 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 The Patient or Authorized Master Automotive Technician has agreed to proceed with the sensitive [...] or sooner as needed Katrina Kendrick MD [facility] 05-01-2024 History of Presen t illness [...] living children. Had one daughter pass from [facility] Administrative Office Clerk History LMP: 07/17/2012, Postmenopausal Age at Menarche: Age at First : Age at Menopause: Administrative Office Clerk History Comments: Sexual Activity: Yes; Male; Menopause [...] Brother Heart Maternal Grandfather passed from an [place] Colon Cancer Paternal Grandmother Thyroid Maternal Aunt [...] discussed with the Patient or 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 As applicable, any other physician, advance practice provider, medical student, or other health professional student that will be observing or involved in the sensitive examination for educational or training purposes was discussed with the Patient or 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 The Patient or Authorized Master Automotive Technician has agreed to proceed with the sensitive [...] Katrina Kendrick MD documented in this encounter [facility] 04-02-2024 History of Presen t illness Narrative [...] PATIENT PRESENTS WITH AN IMPLANTABLE OR ATTACHED FIBER OPTICS ENGINEER: No RADIOLOGY DEPARTMENT: Mammography PERIPHERAL IV DATA: Not applicable SIGNED BY: Manny Kelly April 02, 2024 3:09 PM documented in this encounter [facility] 04-02-2024 Note HNO ID: [id number] Author: ELANA NELSON Mammo Tech Service: ? Author Type: Film Spooler Type: Progress Notes Filed: 04/02/2024 15:09 Note [...] PATIENT PRESENTS WITH AN IMPLANTABLE OR ATTACHED FIBER OPTICS ENGINEER: No RADIOLOGY DEPARTMENT: Mammography PERIPHERAL IV DATA: Not applicable SIGNED BY: Manny Kelly April 02, 2024 3:09 PM [facility] 10-25-2023 History of Presen t illness [...] PATIENT PRESENTS WITH AN IMPLANTABLE OR ATTACHED FIBER OPTICS ENGINEER: No RADIOLOGY DEPARTMENT: Mammography PERIPHERAL IV DATA: Not applicable SIGNED BY: Manny Vasquez October 25, 2023 3:41 PM documented in this encounter [facility] 10-25-2023 Note HNO ID: [id number] Author: KEN PARKER Mammo Tech Service: ? [...] PATIENT PRESENTS WITH AN IMPLANTABLE OR ATTACHED FIBER OPTICS ENGINEER: No RADIOLOGY DEPARTMENT: Mammography PERIPHERAL IV DATA: Not applicable SIGNED BY: Ken Parker [employer] October 25, 2023 3:41 PM [facility] 04-12-2023 Miscellaneous Notes Formattin g of this [...] Katrina Kendrick MD documented in this encounter [facility] 03-17-2023 Miscellaneous Notes Formattin g of this note might be different from the original. Patient notified. Kathryn Marx RN Done Katrina Kendrick MD Patient called. Viewed her abnormal mammogram results. Needs order so that she can schedule her diagnostic imaging. Please file. Patient would then like a call back once orders have been placed. Kathryn Marx, RN documented in this encounter [facility] 03-16-2023 Miscellaneous Notes Formattin g of this note might be different from the original. March 16, 2023 PID: [id number] David Yanes [address] [place] [address] Dear Ms. Yanes, Your recent breast imaging [...] who ordered/prescribed your screening mammogram: Please call [phone] or EXT: [phone] to schedule an appointment for your additional [...] and reports are kept on file at [facility] as part of your permanent medical record, and are available for your continuing care. Thank you for allowing us to help in meeting your health care needs. Sincerely, Dr. Sales Interpreting Radiologist [facility] (Additional imaging) documented in this encounter [facility] 03-15-2023 History of Presen t illness Narrative [...] 2023 1:31 PM documented in this encounter [facility] 02-07-2023 Discharge summary Note Date/Time February 07, 2023 7:28pm [facility] Medical Records Department [address] [place] [address] Emergency Department Summary 02/07/23 MR#: [id number] Acct: [id number] Name: DAVID YANES Rep #:[id number] : 1960 62 From: Marlon Grewal PCP: Dr. Marlon Willoughby MD Status:[facility] ER Location: ED ADDENDUM by Dr. Trever [...] homicidal thoughts, tactile/visual/auditory hallucinations, and substance use. [facility] <ITZ Beck - Last Filed: 02/07/23 20:36> [facility] Medical History (Updated 02/07/23 @ 20:30 [...] <ITZ Beck - Last Filed: 02/07/23 20:36> [facility] Narrative Medical decision making narrative: Patient presenting [...] 70.4 H Lymph % (Auto) 18.9 L Gove % (Auto) 9.2 Eos % (Auto) 0.6 [...] Monique, DO - Last Filed: 02/07/23 23:40> [facility] Lab Data Labs: Laboratory Results - last 24 hr 02/07/23 19:54 WBC 6.5 RBC 4.97 Hgb 15.7 H Hct 46.4 MCV 93.4 MCH 31.6 MCHC 33.8 RDW Std Deviation 40.9 RDW Coeff of Saira 11.9 Plt Count 275 MPV 9.2 Immature Gran % (Auto) 0.300 Neut % (Auto) 70.4 H Lymph % (Auto) 18.9 L Gove % (Auto) 9.2 Eos % (Auto) 0.6 [...] than 3.0. Case was discussed with crisis energy consultant. She was in to evaluate the patient. [...] your Primary Care Provider. Call [facility] ([phone]) or report to the closest Emergency Room. Call 911 if necessary. 02/07/232341 <Electronically signed by Marlon Monique DO> Cosigner Signature (if applicable): 02/07/232035 <Electronically signed by Laura Baron PA> CC: Dr. Marlon Willoughby MD ~ Signed [facility] Work Phone: [phone]) 205-989411-18-2022 History of Present illness Narrative* Katrina Kendrick [...] children. 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 LMP: 07/17/2012, Postmenopausal Age at Menarche: Age at First : Age at Menopause: Administrative Office Clerk History Comments: Sexual Activity: Yes; Male; Menopause [...] Brother Heart Maternal Grandfather passed from an [place] Colon Cancer Paternal Grandmother Thyroid Maternal Aunt [...] needed Katrina Kendrick MD [facility] History of Present illness Narrative* Franny Le Mammo Tech - 02/10/2022 1:00 PM EST [...] IV DATA: Not applicable SIGNED BY: Manny [place] February 10, 2022 1:12 PM [facility] Miscellaneous Notes* Telephone Encounter - Dylan Boyle - 01/08/2022 11:58 AM EDT Patient called to schedule CB [facility] Miscellaneous Notes* Letter - Mammography Coordinator - 01/08/2022 9:11 AM EDT January 08, 2022 PID: [id number] David Yanes [address] [place] [address] Dear Ms. Yanes, Your recent breast imaging [...] who ordered/prescribed your screening mammogram: Please call [phone] or EXT: [phone] to schedule an appointment for your additional [...] and reports are kept on file at [facility] as part of your permanent medical record, and are available for your continuing care. Thank you for allowing us to help in meeting your health care needs. Sincerely, Dr. 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 documented as of this encounter (statuses as of 01/08/2022) [address] History of Past illness Narrative* Problem Noted Date Resolved Date 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 documented as of this encounter (statuses as of 01/12/2022) [address] History of Past illness Narrative* Problem Noted Date Resolved Date 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 documented as of this encounter (statuses as of 02/19/2022) [address] History of Past illness Narrative* Problem Noted Date Diagnosed Date Resolved Date 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 documented as of this encounter (statuses as of 02/06/2023) [address] History of Past illness Narrative* Problem Noted Date Diagnosed Date Resolved Date 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 documented as of this encounter (statuses as of 03/16/2023) [address] History of Past illness Narrative* Problem Noted Date Diagnosed Date Resolved Date 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 documented as of this encounter (statuses as of 03/18/2023) [address] History of Past illness Narrative* Problem Noted Date Diagnosed Date Resolved Date 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 documented as of this encounter (statuses as of 03/18/2023) [address] History of Past illness Narrative* Problem Noted Date Diagnosed Date Resolved Date 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 documented as of this encounter (statuses as of 04/12/2023) [facility] noteNo assessment information availableWSalem [facility] Work Phone: Evaluation note* Diagnosis Abnormal mammogram- Primary Abnormal mammogram, unspecified documented in this encounter [facility]* Diagnosis Encounter for gynecological examination without abnormal finding- Primary Routine gynecological examination Encounter for screening mammogram for malignant neoplasm of breast Other screening mammogram Dense breasts Inconclusive mammogram [facility] Diagnosis Abnormal mammogram Abnormal mammogram, unspecified [facility] Diagnosis Encounter for screening mammogram for malignant neoplasm of breast Other screening mammogram Dense breasts Inconclusive mammogram documented in this encounter [facility]* Diagnosis Abnormal mammogram- Primary Abnormal mammogram, unspecified documented in this encounter [facility] note* Diagnosis Category 3 mammography result with short follow-up interval suggested for probably benign finding- Primary Inconclusive mammogram [facility]* Diagnosis Onset Date Resolution Status Encounter for screening for malignant neoplasm of colo n acute [facility] Work Phone: Evaluation note* Diagnosis Category 3 mammography result with short follow-up interval suggested for probably benign finding Inconclusive mammogram documented in this encounter [facility] note* Diagnosis Category 3 mammography result with short follow-up interval suggested for probably benign finding Inconclusive mammogram documented in this encounter [facility]* Diagnosis Encounter for screening mammogram for malignant neoplasm of breast Other screening mammogram documented in this encounter [facility]* Diagnosis Encounter for gynecological examination (general) (routine) without abnormal findings- Primary Encounter for screening mammogram for breast cancer [facility] Author Adrian Campos [facility] July 20, 2023 6:53am Note Date/Time July 20, 2023 6:5 3am [facility] Medical Records Department [address] [place] [id number] History & Physical Exam 07/20/23 0652 MR#: [id number] Acct: [id number] Name: DAVID YANES Rep #:[id number] : 1960 63 From: Adrian Campos DO PCP: Dr. Marlon Willoughby MD Status:[facility] Location: [place] [address] HPI - General General Date of Admission: 07/20/23 Date of Service: 07/20/23 Chief Complaint: Screening colonoscopy HPI Narrative DAVID YANES, is a 63 F who presents today for screening colonoscopy. She had a colonoscopy approximately 10 years ago. She she has only past medical history of mild hypertension and mild hypothyroidism. Above controlled medicines. Overall she is in very good health. 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 07/20/23 0653 <Electronically signed by Adrian Campos DO> Cosigner Signature (if applicable): CC: Dr. Marlon Willoughby MD; Adrain Campos DO~ Signed [facility] Work Phone: Hospital Discharge instructions Additional Instructions Follow-up with the resources given to you by counseling service. If you develop worsening symptoms or any thoughts of hurting yourself, please return back to the emergency department for reevaluation.[facility] Work Phone: Reason for referral (narrative)* Diagnostic Procedure Only (Routine) - Authorized Specialty Diagnoses / Procedures Referred By Contac t Referred To Contact [facility] Diagnoses Abnormal mammogram Procedures VERÓNICA DIAGNOSTIC LT DIAGNOSTIC MAMMOGRAPHY COMPUTER-AIDED DETCJ Rosalind Raygoza, MAEVE.MENTAL HEALTH CASE MANAGER [address] [place] [address] [facility] [address] [place] [address] Referral ID Status Reason Start Date Expiration Date Visits Requested Visits Authorized [id number] Authorized Auto-Generat ed Referral 01/08/2022 02/07/2023 1 1 * Diagnostic Procedure Only (Routine) - Pending Review Specialty Diagnoses / Procedures Referred By Jackelin t Referred To Contact [facility] Diagnoses Abnormal mammogram Procedures US BREAST LTD LT US BREAST UNI REAL TIME WITH IMAGE LIMITED Rosalind Steward APRN.CNP [address] [place] [place] [address] [facility] [address] [place] [address] Referral ID Status Reason Start Date Expiration Date Visits Requested Visits Authorized [id number] Pending Review Auto-Generat ed Referral 01/08/2022 02/07/2023 1 1 [facility] for referral (narrative)* Diagnostic Procedure Only (Routine) - Pending Review Specialty Diagnoses / Procedures Referred By Jackelin patino Referred To Contact [facility] Diagnoses Encounter for screening mammogram for malignant neoplasm of breast Dense breasts Procedures VERÓNICA SCREENING W JUANA SCREENING DIGITAL BREAST TOMOSYNTHESIS BI SCREENING MAMMOGRAPHY BI 2-VIEW BREAST INC CAD Katrina Kendrick MD [address] [place] [address] [facility] [address] [place] [address] Referral ID Status Reason Start Date Expiration Date Visits Requested Visits Authorized [id number] Pending Review Auto-Generat ed Referral 2 03/21/2023 1 1 [facility] for referral (narrative)* Diagnostic Procedure Only (Routine) - Authorized Specialty Diagnoses / Procedures Referred By Jackelin patino Referred To Contact [facility] Diagnoses Abnormal mammogram Procedures US BREAST LTD RIGHT US BREAST UNI REAL TIME WITH IMAGE LIMITED Katrina Kendrick MD [address] [place] [address] [facility] [address] [place] [address] Referral ID Status Reason Start Date Expiration Date Visits Requested Visits Authorized [id number] Authorized Auto-Generat ed Referral 3 04/14/2024 1 1 * Diagnostic Procedure Only (Routine) - Authorized Specialty Diagnoses / Procedures Referred By Jackelin t Referred To Contact [facility] Diagnoses Abnormal mammogram Procedures VERÓNICA DIAGNOSTIC RIGHT DIAGNOSTIC MAMMOGRAPHY COMPUTER-AIDED DETCJ Katrina Samuels MD [address] [place] [address] [facility] [address] [place] [address] Referral ID Status Reason Start Date Expiration Date Visits Requested Visits Authorized [id number] Authorized Auto-Generat ed Referral 3 04/14/2024 1 1 [facility] for referral (narrative)* Diagnostic Procedure Only (Routine) - Pending Review Specialty Diagnoses / Procedures [facility] Diagnoses Category 3 mammography result with short follow-up interval suggested for probably benign finding Procedures US BREAST LTD RIGHT US BREAST UNI REAL TIME WITH IMAGE LIMITED Katrina Kendrick MD [address] [place] [address] [facility] [address] [place] [address] Referral ID Status Reason Start Date Expiration Date Visits Requested Visits Authorized [id number] Pending Review Auto-Generat ed Referral 04/12/2023 05/11/2024 1 1 * Diagnostic Procedure Only (Routine) - Authorized Specialty Diagnoses / Procedures [facility] Diagnoses Category 3 mammography result with short follow-up interval suggested for probably benign finding Procedures VERÓNICA DIAGNOSTIC RIGHT DIAGNOSTIC MAMMOGRAPHY COMPUTER-AIDED DETCJ Katrina Samuels MD [address] [place] [address] [facility] [address] [place] [address] Referral ID Status Reason Start Date Expiration Date Visits Requested Visits Authorized [id number] Authorized Auto-Generat ed Referral 04/12/2023 05/11/2024 1 1 [facility] for referral (narrative)* Diagnostic Procedure Only (Routine) - Authorized Specialty Diagnoses / Procedures Referred By Danielac t Referred To Contact [facility] Diagnoses Encounter for gynecological examination (general) (routine) without abnormal findings Encounter for screening mammogram for breast cancer Procedures VERÓNICA SCREENING W JUANA SCREENING DIGITAL BREAST TOMOSYNTHESIS BI SCREENING MAMMOGRAPHY BI 2-VIEW BREAST INC Katrina Ward MD [address] [place] [address] [facility] [address] [place] [address] Referral ID Status Reason Start Date Expiration Date Visits Requested Visits Authorized [id number] Authorized Auto-Generat ed Referral 05/01/2024 05/31/2025 1 1 [facility] for referral (narrative)No reason for referral information availableWSalem [facility] Work Phone: Reason for visit Narrative* Diagnostic Procedure Only (Routine) - Closed Specialty Diagnoses / Procedures Referred By Jackelin patino Referred To Contact [facility] Diagnoses Abnormal mammogram Procedures VERÓNICA DIAGNOSTIC LT DIAGNOSTIC MAMMOGRAPHY COMPUTER-AIDED DETCJ [facility] Rosalind Steward APRN.MENTAL HEALTH CASE MANAGER [address] [place] [address] [facility] [address] [address] Referral ID Status Reason Start Date Expiration Date V isits Requested Visits Authorized [id number] Closed Auto-Generate d Referral 01/08/2022 02/07/2023 1 1 [facility] for visit Narrative* Diagnostic Procedure Only (Routine) - Closed Specialty Diagnoses / Procedures Referred By Jackelin patino Referred To Contact [facility] Diagnoses Encounter for screening mammogram for malignant neoplasm of breast Dense breasts Procedures VERÓNICA SCREENING W JUANA SCREENING DIGITAL BREAST TOMOSYNTHESIS BI SCREENING MAMMOGRAPHY BI 2-VIEW BREAST INC Katrina Ward MD [address] [place] [address] [facility] [address] [place] [address] Referral ID Status Reason Start Date Expiration Date V isits Requested Visits Authorized [id number] Closed Auto-Generate d Referral 02/19/2022 03/21/2023 1 1 [facility] for visit Narrative* Diagnostic Procedure Only (Routine) - Closed Specialty Diagnoses / Procedures Referred By Jackelin t Referred To Contact [facility] Diagnoses Category 3 mammography result with short follow-up interval suggested for probably benign finding Procedures VERÓNICA DIAGNOSTIC RIGHT DIAGNOSTIC MAMMOGRAPHY COMPUTER-AIDED DETCJ UNI Katrina Kendrick MD [address] [place] [address] [facility] [address] [place] [address] Referral ID Status Reason Start Date Expiration Date V isits Requested Visits Authorized [id number] Closed Auto-Generate d Referral 04/12/2023 05/11/2024 1 1 [facility] for visit Narrative* Diagnostic Procedure Only (Routine) - Authorized Specialty Diagnoses / Procedures Referred By Jackelin patino Referred To Contact [facility] Diagnoses Category 3 mammography result with short follow-up interval suggested for probably benign finding Procedures US BREAST LTD RIGHT US BREAST UNI REAL TIME WITH IMAGE LIMITED Katrina Kendrick MD [address] [place] [address] [facility] [address] [place] [address] Referral ID Status Reason Start Date Expiration Date Visits Requested Visits Authorized [id number] Authorized Auto-Generat ed Referral 04/12/2023 05/11/2024 1 1 [facility] for visit Narrative* Diagnostic Procedure Only (Routine) - Closed Specialty Diagnoses / Procedures Referred By Jackelin patino Referred To Contact [facility] Diagnoses Encounter for screening mammogram for malignant neoplasm of breast Procedures VERÓNICA SCREENING W JUANA SCREENING DIGITAL BREAST TOMOSYNTHESIS BI SCREENING MAMMOGRAPHY BI 2-VIEW BREAST INC CAD Katrina Kendrick MD [address] [place] [address] [facility] [address] [place] [address] Referral ID Status Reason Start Date Expiration Date V isits Requested Visits Authorized [id number] Closed Auto-Generate d Referral 04/02/2024 04/29/2025 1 1 [facility] Advance Directives No Advanced Directives Records Found Advance Directive Response Recorded Date/ Time Living Will No April 25 12:45pm Power of Gas Scrubber Operator No April 25, 2018 12:45pm Advance Directive Response Recorded Date/ Time Living Will No February 07 7:15pm Power of Gas Scrubber Operator No February 07, 2023 7:15pm Advance Directive Response Recorded Date/ Time Living Will No July 14, 2023 3:14pm Power of Gas Scrubber Operator No July 13 3:14pm Chief Complaint and [...] or prosecute any alcohol or drug abuse patient.[facility] the event this information is protected by the Federal Confidentiality of Alcohol and Drug Abuse Patient Records regulations: The Federal rules restrict any use of the information to criminally investigate or prosecute any alcohol or drug abuse patient.[facility] the event this information is protected by the Federal Confidentiality of Alcohol and Drug Abuse Patient Records regulations: The Federal rules restrict any use of the information to criminally investigate or prosecute any alcohol or drug abuse patient.[facility] the event this information is protected by the Federal Confidentiality of Alcohol and Drug Abuse Patient Records regulations: The Federal rules restrict any use of the information to criminally investigate or prosecute any alcohol or drug abuse patient.[facility] the event this information is protected by the Federal Confidentiality of Alcohol and Drug Abuse Patient Records regulations: The Federal rules restrict any use of the information to criminally investigate or prosecute any alcohol or drug abuse patient.[facility] Campus[facility] the event this information is protected by the Federal Confidentiality of Alcohol and Drug Abuse Patient Records regulations: The Federal rules restrict any use of the information to criminally investigate or prosecute any alcohol or drug abuse patient.[facility] Campus[facility] the event this information is protected by the Federal Confidentiality of Alcohol and Drug Abuse Patient Records regulations: The Federal rules restrict any use of the information to criminally investigate or prosecute any alcohol or drug abuse patient.[facility] Campus[facility] the event this information is protected by the Federal Confidentiality of Alcohol and Drug Abuse Patient Records regulations: The Federal rules restrict any use of the information to criminally investigate or prosecute any alcohol or drug abuse patient.[facility] Campus[facility] the event this information is protected by the Federal Confidentiality of Alcohol and Drug Abuse Patient Records regulations: The Federal rules restrict any use of the information to criminally investigate or prosecute any alcohol or drug abuse patient.[facility] Campus[facility] the event this information is protected by the Federal Confidentiality of Alcohol and Drug Abuse Patient Records regulations: The Federal rules restrict any use of the information to criminally investigate or prosecute any alcohol or drug abuse patient.[facility] Campus[facility] the event this information is protected by the Federal Confidentiality of Alcohol and Drug Abuse Patient Records regulations: The Federal rules restrict any use of the information to criminally investigate or prosecute any alcohol or drug abuse patient.[facility] Campus[facility] the event this information is protected by the Federal Confidentiality of Alcohol and Drug Abuse Patient Records regulations: The Federal rules restrict any use of the information to criminally investigate or prosecute any alcohol or drug abuse patient.[facility] CampusIn the event this information is protected by the Federal Confidentiality of Alcohol and Drug Abuse Patient Records regulations: The Federal rules restrict any use of the information to criminally investigate or prosecute any alcohol or drug abuse patient.[facility] Reason for Visit (unrecogniz ed section and content) Reason Comments Orders Reason Comments Mammogram Result Call Back Reason Onset Date Comments Yearly Exam 02/19/2022 Reason Comments Yearly Exam Care Teams (unrecognized sec tion and content) [employer] Relationship Specialty Start Date End Date Marlon Willoughby MD PCP - General 11/28/07 [employer] Relationship Specialty Start Date End Date Marlon Willoughby MD PCP - General 11/28/07 [employer] Relationship Specialty Start Date End Date Marlon Willoughby MD PCP - General 11/28/07 [employer] Relationship Specialty Start Date End Date Marlon [...] Primary Care Provider, Attending Armando lindsey Active [employer] Relationship Specialty Start Date End Date Marlon Willoughby MD PCP - General 11/28/07 Team Status: Inactive Member Role Status Dates Dr. Marlon Willoughby MD Primary Care Provider Active Dr. Marlon Monique DO Emergency Provider Active [employer] Relationship Specialty Start Date End Date Marlon Willoughby MD PCP - General 11/28/07 [employer] Relationship Specialty Start Date End Date Marlon Willoughby MD PCP - General 11/28/07 [employer] Relationship Specialty Start Date End Date Marlon Willoughby MD PCP - General 11/28/07 Team Status: Inactive Member Role Status Dates Dr. Marlon Willoughby MD Primary Care Provider Active Dr. Marlon Monique DO Attending Provider, Emergency P rovider Active Team Status: Active Member Role Status Dates Dr. Marlon Willoughby MD Primary Care Provider Active Nadja Manuel Attending Provider Active Team Status: Active Member Role Status Dates Dr. Marlon Willoughby MD Primary Care Provider, Referring P rovider Active Dr. Adrian Campos DO Attending Provider, Other Prov ider Active Team Status: Inactive Member Role Status Dates Dr. Marlon Willoughby MD Primary Care Provider, Referring P rovider Active Dr. Adrian Campos DO Attending Provider Active [employer] Relationship Specialty Start Date End Date Marlon Willoughby MD PCP General 11/28/07 [employer] Relationship Specialty Start Date End Date Marlon Willoughby MD PCP [facility] 11/28/07 Team Status: Active Member Role/Relationship Status Dates Dr. Marlon Willoughby MD Family Provider Active Dr. Marlon Willoughby MD Primary Care Provider Active Team Status: Inactive Member Role/Relationship Status Dates Dr. Marlon Willoughby MD Primary Care Provider Active Start: November 07, 2024 End: November 07, 2024 Dr. Marlon Willoughby MD Attending Provider Active St art: November 07, 2024 End: November 07, 2024 Dr. Marlon Willoughby MD Referring Provider Active St art: November 07, 2024 End: November 07, 2024 INFORMATION SOURCE (unrecogn ized section and content) DATE CREATED AUTHOR 05/02/2024 [facility] DATE CREATED AUTHOR AUTHOR'S ORGANIZ ATION 11/17/2024 [facility] FOR RECORDS PERTAINING TO PATIENTS WHO [...] BE BASED ON THE PRIMARY CLINICAL RECORDS. [facility] [facility]. provides no warranty or guarantee of the accuracy or completeness of information in this document.
[2025-04-03 17:41] LABS: Creatinine, Urine (random) 159.00 mg/dL (28.00-217.00); Microalbumin,Random Urine < 12.0 mg/L (<20 mg/L)
[2025-04-03 17:54] LABS: AST(SGOT) 35 U/L (<=31); Alanine Aminotransfer ALT/SGPT 53 U/L (<=34); Albumin, Serum 4.1 g/dL (3.4-4.8); Alkaline Phosphatase 80 U/L (35-104); Anion Gap 11 (7-18); BUN 13 mg/dL (4-19); BUN/Creat Ratio 18.3 RATIO (10-20); Calcium,Total 9.7 mg/dL (7.6-11.0); Carbon Dioxide 25.1 mmol/L (20.0-29.0); Chloride 103 mmol/L (96-106); Globulin 3.3 g/dL (2.2-4.2); Glucose 107 mg/dL (70-99); Potassium 4.1 mmol/L (3.5-5.1); Vitamin D,25 Hydroxy 48.9 ng/mL (30-100)
== END | disposition home or self-care (01) ==
LOC: MFPLAB 14:08
PROVIDERS: PCP Family Medicine; Visit Provider Family Medicine
DX: I10 Essential (primary) hypertension (principal); E03.9 Hypothyroidism, unspecified
CPT/HCPCS: 36415; 80053; 82043; 82306; 82570; 84439; 84443